=== PATIENT | male | born 1945 | race Caucasian/White ===

== ENCOUNTER → 2023-01-21 11:11 | Outpatient (BNVA) | payer MEDICARE, SELFPAY | PROVIDERS: PCP Family Medicine; Visit Provider Internal Medicine Hematology & Oncology | DX: D69.6 Thrombocytopenia, unspecified (principal) | CPT/HCPCS: 99204 ==

== ENCOUNTER → 2023-01-26 09:43 | Outpatient (BNVA) | payer MEDICARE, SELFPAY | PROVIDERS: PCP Family Medicine; Visit Provider Internal Medicine Hematology & Oncology | DX: D69.6 Thrombocytopenia, unspecified (principal) | CPT/HCPCS: 85025 ==

== ENCOUNTER 2023-02-05 10:06 | Oncology outpatient (recurring) (ONCR) | payer MEDICARE, SELFPAY ==
[2023-01-21 12:06] LABS: Basophils # 0.3 10^3/uL (0.0-0.1); Basophils % 1.6 %; Eosinophils # 0.2 10^3/uL (0.0-0.8); Hematocrit 29.1 % (42.0-52.0); Hemoglobin 8.8 g/dL (11.7-16.6); Lymphocytes # 2.3 10^3/uL (0.8-4.8); Lymphocytes % 13.1 %; Mean Corpuscular HGB Conc 30.2 g/dL (30.0-36.0); Mean Corpuscular Hemoglobin 30.4 pg (28.0-34.0); Mean Corpuscular Volume 100.7 fl (80-94); Monocytes % 5.5 %; Neutrophils # 10.61 10^3/uL (1.8-7.7); Neutrophils % 61.4 %; Nucleated Red Blood Cells # 0.9 /100WBC; Red Blood Count 2.89 10^6/uL (4.1-5.3); Red Cell Distribution Width 20.4 % (12.1-15.1); White Blood Count 17.3 10^3/uL (4.0-10.0)
[2023-01-21 12:29] LABS: Platelet Count 12 10^3/cmm (130-400); Slide Review Slide Review Perform
[2023-01-21 14:56] LABS: Reticulocyte % 3.9 % (0.5-2.0)
[2023-01-21 15:48] LABS: Ferritin 89 ng/mL (30-400); Folate Level 10.5 ng/mL (4.5-32.2); Iron 74 ug/dL (59-158); Percent Saturation 30.4 % (20-50); Total Iron Binding Capacity 243 mcg/dl; Unsaturated Iron Binding 169 ug/dL (112-347); Vitamin B12 616 pg/mL (232-1245)
[2023-01-22] MEDS: diphenhydrAMINE 25 mg Capsule PO (09:13)
[2023-01-22] MEDS: acetaminophen 325 mg Tablet 650 MG PO (09:13)
[2023-01-22 09:25] VITALS: BP 122/59; PULSE 88; RESP 18; TEMP 36.6; O2SAT 99
[2023-01-22 09:51] VITALS: BP 132/79; PULSE 92; RESP 18; TEMP 36.1; O2SAT 99
[2023-01-22 12:42] LABS: Leukemia Profile (BBPL) See Report; Lymphoma Profile (BBPL) See Report
--- NOTE | 2023-01-22 14:37 | US_ITS ---
WS: [id number] Complete ABDOMINAL ULTRASOUND HISTORY: THROMBOCYTOPENIA COMPARISON: None available. Liver: 16.6 cm in length. Normal size liver and echogenicity. No bile duct dilatation or mass. Portal Vein: Normal hepatopetal flow with monophasic waveform. Gallbladder: Normally distended gallbladder with no stones or wall thickening. CBD: 0.3 cm Pancreas: Partially obscured by bowel gas. Right kidney: 10.3 cm x 4.8 x 5.2 cm. Cortex:1.0 cm. Normal size and echogenicity. No hydronephrosis or mass. Left kidney: 11.2 cm x 5.1 cm x 4.9 cm. Cortex: 0.9 cm. No mass, cortical thickening or hydronephrosis. Small cortical cyst mid kidney measures 8 x 9 x 7 mm . Spleen: Mildly enlarged spleen at 14.7 cm in length. Normal concavity at the splenic hilum. No mass. Aorta and IVC: Mild atherosclerosis aorta with no aneurysm. US/US abdomen complete* [id number] Impression: 1. Normal gallbladder. 2. No renal obstruction. 3. Mild splenomegaly. Spleen has slightly enlarged since the prior CT of 08/01.
[2023-02-02 09:06] LABS: Hematocrit 29.6 % (42.0-52.0); Hemoglobin 9.2 g/dL (11.7-16.6); Mean Corpuscular HGB Conc 31.1 g/dL (30.0-36.0); Mean Corpuscular Hemoglobin 31.3 pg (28.0-34.0); Mean Corpuscular Volume 100.7 fl (80-94); Red Blood Count 2.94 10^6/uL (4.1-5.3); White Blood Count 18.6 10^3/uL (4.0-10.0)
[2023-02-02 09:32] LABS: Slide Review Slide Review Perform
[2023-02-02 09:34] LABS: Platelet Count 12 10^3/cmm (130-400)
[2023-02-02 09:38] LABS: Absolute Segmented Neutrophil 11.3 10/cmm (1.6-7.1); Band Neutrophils Absolute 2.2 10^3/cmm (0.0-1.2); Corrected White Blood Count 17.7 10^3/cmm (4.8-10.8); Eosinophils 0 %; Lymphocytes 19 %; Lymphocytes Absolute 3.5 10^3/cmm (1.2-3.4); Monocytes Absolute 0.2 10^3/cmm (0.1-0.6); Segmented Neutrophils 61 %; Total Cells Counted 100 (0-100)
[2023-02-02 09:39] LABS: Absolute Neutrophil 13.6 10^3/cmm (1.4-6.5); Anisocytosis 1+; Macrocytosis Trace; Platelet Estimate Decreased (Normal); Poikilocytosis Trace; Smudge Cells Trace
[2023-02-02 15:05] VITALS: BP 107/69; PULSE 94; RESP 16; TEMP 36.6; O2SAT 99
[2023-02-02] MEDS: sodium chloride 0.9% 250 mL Bag IV (15:21)
[2023-02-02] MEDS: acetaminophen 325 mg Tablet 650 MG PO (15:22)
[2023-02-02] MEDS: diphenhydrAMINE 25 mg Capsule PO (15:22)
[2023-02-02 15:30] VITALS: BP 111/61; PULSE 88; RESP 16; TEMP 36.9; O2SAT 99
[2023-02-05 10:56] LABS: Basophils # 0.3 10^3/uL (0.0-0.1); Basophils % 1.7 %; Eosinophils # 0.1 10^3/uL (0.0-0.8); Eosinophils % 0.7 %; Hematocrit 27.1 % (42.0-52.0); Hemoglobin 8.5 g/dL (11.7-16.6); Lymphocytes # 2.5 10^3/uL (0.8-4.8); Lymphocytes % 13.8 %; Mean Corpuscular HGB Conc 31.4 g/dL (30.0-36.0); Mean Corpuscular Hemoglobin 31.3 pg (28.0-34.0); Mean Corpuscular Volume 99.6 fl (80-94); Monocytes # 0.8 10^3/uL (0.2-0.9); Monocytes % 4.4 %; Neutrophils # 11.64 10^3/uL (1.8-7.7); Neutrophils % 64.4 %; Nucleated Red Blood Cells # 0.6 /100WBC; Nucleated Red Blood Cells % 3.4 %; Red Blood Count 2.72 10^6/uL (4.1-5.3); Red Cell Distribution Width 20.1 % (12.1-15.1); White Blood Count 18.1 10^3/uL (4.0-10.0)
[2023-02-05 11:10] LABS: Platelet Count 24 10^3/cmm (130-400)
[2023-02-05 11:30] LABS: LAB Peripheral Smear Sent for Review
[2023-02-05 12:00] VITALS: BP 124/60; PULSE 81; RESP 18; TEMP 36.4; O2SAT 92
[2023-02-05 12:05] VITALS: BP 124/87; PULSE 81; RESP 18; TEMP 36.4; O2SAT 92
[2023-02-05 16:38] VITALS: BP 124/60; PULSE 81; RESP 18; TEMP 36.6; O2SAT 98
== END 2023-02-08 23:59 | disposition home or self-care (01) ==
PROVIDERS: Nurse Practitioner Family; PCP Family Medicine; Visit Provider Internal Medicine Hematology & Oncology
DX: D69.6 Thrombocytopenia, unspecified (principal); D64.9 Anemia, unspecified
CPT/HCPCS: 36415; 36430; 76700; 82607; 82728; 82746; 83540; 83550; 85007; 85025; 85045; 86850; 86900; 88184; 88185; 99204; 99214; J7050; P9035; P9037

== ENCOUNTER 2023-02-09 10:42 | Day surgery (SDC) | payer MEDICARE, SELFPAY ==
[2023-02-06 12:28] VITALS: BMI 27.3
[2023-02-09 11:02] VITALS: BP 137/58; PULSE 77; RESP 18; TEMP 36.6; O2SAT 97
--- NOTE | 2023-02-09 11:12 | ANES.PREANE2 ---
Pre-Anesthetic Assessment Height/Weight: Height 1.7 m Weight 79.379 kg Temp Pulse Resp BP Pulse Ox O2 Del Method 97.8 F 77 18 137/58 97 Room Air 02/09/23 11:02 02/09/23 11:02 02/09/23 11:02 02/09/23 11:02 02/09/23 11:02 02/09/23 11:02 Operation Date: 02/09/23 12:30 Proposed Procedures p Bone Marrow Biospy With Aspiration(Not Applicable) - Lindsey Callejas MD Familial anesthetic complications: None Was Beta Oracio taken within 24 hours: N/A Was Clonidine taken within 24 hours: N/A Last intake: Intake Last Liquid Date 02/08/23 Last Liquid Time 23:00 Last Solid Date 02/08/23 Last Solid Time 21:00 Social Tobacco and No alcohol Exam alert, oriented x 3, clear to auscultation bilaterally and regular rate & rhythm coarse breath sounds Airway Mallampati: Class II Dentition: full Pulmonary Chronic Obstructive Pulmonary Disease CV/HEM Hypertension and Peripheral Vascular Disease plts 16k - repeat cbc bypass 2019 GI Gastroesophageal Reflux Disease Metabolic Diabetes Mellitus Neuropsych R CEA Anesthetic Plan ASA status: 4 Anesthesia: MAC Medications/Allergies Home Medications Medication Instructions Recorded Confirmed Last Taken Type ascorbic acid (vitamin C) 500 mg 500 mg PO DAILY 05/08/20 02/06/23 1 Day Ago History capsule ~02/05/23 aspirin 325 mg tablet 325 mg PO DAILY 05/08/20 02/06/23 01/23/23 History cyanocobalamin (vitamin B-12) 1,000 mcg PO DAILY 05/08/20 02/06/23 02/05/23 History 1,000 mcg capsule diclofenac sodium 1 % topical gel 4 gm topical QID 05/08/20 02/06/23 3 Months Ago History (Voltaren) ~11/08/22 finasteride 5 mg tablet (Proscar) 5 mg PO DAILY 05/08/20 02/06/23 02/06/23 History furosemide 40 mg tablet 40 mg PO DAILY 05/08/20 02/06/23 02/06/23 History glipizide 5 mg tablet 5 mg PO TID PRN Hyperglycemia 05/08/20 02/06/23 02/06/23 History magnesium 200 mg tablet 200 mg PO DAILY 05/08/20 02/06/23 02/06/23 History metformin 850 mg tablet 850 mg PO BID 05/08/20 02/06/23 02/06/23 History potassium gluconate 595 mg (99 mg) mg PO DAILY 05/08/20 02/02/23 02/06/23 History tablet,extended release lisinopril 5 mg tablet 10 mg PO DAILY 01/21/23 02/06/23 02/06/23 History cetirizine 10 mg capsule (All Day 10 mg PO DAILY PRN Allergy Symptoms 02/02/23 02/06/23 02/06/23 History Allergy (cetirizine)) cinnamon bark 500 mg capsule 500 mg PO BID 02/02/23 02/06/23 02/06/23 History (Cinnamon) doxazosin 4 mg tablet (Cardura) 4 mg PO DAILY 02/06/23 02/06/23 02/05/23 History omeprazole 10 mg capsule,delayed 10 mg PO DAILY 02/06/23 02/06/23 02/06/23 History release Allergies Allergy/AdvReac Type Severity Reaction Status Date / Time No Known Allergies Allergy Verified 02/06/23 12:31 [facility] Anesthesia Medical History Anemia Leukocytosis Thrombocytopenia Social History Smoking and tobacco status: current every day smoker cigarettes Packs smoked per day: 2.5 Alcohol intake: current Alcohol intake frequency: holidays/special occasions only Desire information about alcohol rehabilitation?: No Data Anesthesia Cardiac Studies: No Data to Display
[2023-02-09] MEDS: sodium chloride 0.9% 1,000 ML 30 ML IV (11:23)
[2023-02-09 11:38] LABS: Basophils # 0.3 10^3/uL (0.0-0.1); Basophils % 1.7 %; Eosinophils # 0.2 10^3/uL (0.0-0.8); Eosinophils % 1.2 %; Hematocrit 27.8 % (42.0-52.0); Hemoglobin 8.7 g/dL (11.7-16.6); Lymphocytes # 2.4 10^3/uL (0.8-4.8); Lymphocytes % 13.1 %; Mean Corpuscular HGB Conc 31.3 g/dL (30.0-36.0); Mean Corpuscular Volume 98.9 fl (80-94); Mean Platelet Volume 12.3 fL (7.4-10.4); Monocytes # 0.9 10^3/uL (0.2-0.9); Monocytes % 4.9 %; Neutrophils # 11.31 10^3/uL (1.8-7.7); Nucleated Red Blood Cells # 0.7 /100WBC; Nucleated Red Blood Cells % 3.6 %; Platelet Count 48 10^3/cmm (130-400); Red Blood Count 2.81 10^6/uL (4.1-5.3); Red Cell Distribution Width 20.2 % (12.1-15.1); White Blood Count 18.3 10^3/uL (4.0-10.0)
[2023-02-09 11:41] LABS: Neutrophils % 61.8 %
--- NOTE | 2023-02-09 12:33 | W.PM.OPSUD ---
Surgery/Procedure H&P Update DATE OF PROCEDURE: February 09, 2023 DATE H&P PERFORMED: 01/21/23 CHANGES TO PREVIOUS DOCUMENTATION: Patient seen and examined, no new complaints or obvious changes since his last visit to the clinic PRIMARY INDICATION FOR PROCEDURE: Thrombocytopenia/anemia/leukocytosis with peripheral blast l PLANNED PROCEDURE: Operation Date: 02/09/23 12:30 Proposed Procedures p Bone Marrow Biospy With Aspiration(Not Applicable) - Lindsey Callejas MD
--- NOTE | 2023-02-09 13:14 | PM.BMB ---
Bone Marrow Biopsy Bone Marrow Biopsy: I was consulted by [] office regarding bone marrow biopsy on [facility]. Briefly, the patient is a [78] year old [m] with [Thrombocytopenia, anemia, leukocytosis]. In the Outpatient Services Department, with nursing staff and laboratory technologists in attendance, the procedure was discussed with the patient. Appropriate consent form had been signed. Appropriate alternatives, benefits and risks of procedure were discussed with the patient and he was pre-operatively assessed with a history and physical by myself and cleared for the biopsy procedure. The patient did request IV sedation and that was provided by the Anesthesia Department. Under aseptic condition right posterior iliac area was cleaned and prepped, local anesthesia was given, with multiple attempt, only 5 cc of bone marrow aspirate, without significant spicules was obtained, eventually core biopsy was obtained, hemostasis was obtained. Specimen was sent for routine histopathology, flow cytometry and FISH for MDS, heme next generation and leukemia panel. Postprocedure nursing instructions were given Thank you for allowing me to participate in this patient's care and diagnosis. Coding Level of Care Code Acute Code for Thony Mederos
[2023-02-09 13:16] VITALS: BP 108/61; PULSE 83; RESP 20; TEMP 36.2; O2SAT 97
[2023-02-09 13:21] VITALS: BP 106/61; PULSE 74; RESP 20; O2SAT 98
--- NOTE | 2023-02-09 13:23 | PC.NURSE ---
1316 dressing to right hip clean dry and intact 1318 dressing to right hip clean dry and intact 1321 dressing to right hip remains clean dry and intact. patient lying supine to maintain pressure on site.
--- NOTE | 2023-02-09 13:24 | ANE.PACU2 ---
Inpatient post-anesthesia follow up: Airway intact: Yes Vital signs: Temperature 97.1 F Pulse Rate 74 Respiratory Rate 20 Blood Pressure 106/61 Pulse Oximetry 98 Oxygen Delivery Me thod Nasal Cannula Oxygen Flow Rate 4 Fraction of Inspir ed Oxygen Hydration adequate: Yes Nausea and vomiting: No Pain level: 1 Mental status: Baseline
[2023-02-09 13:31] VITALS: BP 125/63; PULSE 84; RESP 20; O2SAT 97
--- NOTE | 2023-02-09 13:34 | PC.NURSE ---
8308 dressing to right hip clean dry and intact
[2023-02-19 10:46] LABS: Chromosome Analysis BBPL See Report
== END 2023-02-09 13:54 | disposition home or self-care (01) ==
PROVIDERS: PCP Family Medicine; Visit Provider Internal Medicine Hematology & Oncology
PROC: 07DT3ZX Extraction of Bone Marrow, Percutaneous Approach, Diagnostic (ICD-10-PCS; CPT 38222; principal; 2023-02-09 12:30)
DX: D69.6 Thrombocytopenia, unspecified (principal); D64.9 Anemia, unspecified; D72.829 Elevated white blood cell count, unspecified; E11.40 Type 2 diabetes mellitus with diabetic neuropathy, unspecified; I10 Essential (primary) hypertension; J44.9 Chronic obstructive pulmonary disease, unspecified; I73.9 Peripheral vascular disease, unspecified; K21.9 Gastro-esophageal reflux disease without esophagitis; F17.210 Nicotine dependence, cigarettes, uncomplicated; Z79.84 Long term (current) use of oral hypoglycemic drugs; Z79.82 Long term (current) use of aspirin; Z79.899 Other long term (current) drug therapy; Z95.1 Presence of aortocoronary bypass graft
CPT/HCPCS: 36415; 38222; 85025; 88237; 88264; 88291; 88305; 88311; J2704; J7030

== ENCOUNTER → 2023-02-13 12:21 | Day surgery (SDC) | payer MEDICARE, SELFPAY ==
[2023-02-13] MEDS: acetaminophen 325 mg Tablet 650 MG PO (12:47)
[2023-02-13] MEDS: diphenhydrAMINE 25 mg Capsule PO (12:47)
[2023-02-13 12:49] VITALS: BP 134/70; PULSE 84; RESP 18; TEMP 36.3; O2SAT 96
[2023-02-13 13:02] LABS: Platelet Count 22 10^3/cmm (130-400)
--- NOTE | 2023-02-13 13:12 | PC.NURSE ---
Platelet count 22. Dr. Callejas notified. Platelet transfusion deferred until Thursday per Dr. Callejas.
== END ==
PROVIDERS: PCP Family Medicine; Visit Provider Internal Medicine Hematology & Oncology
DX: D69.6 Thrombocytopenia, unspecified (principal); Z79.899 Other long term (current) drug therapy
CPT/HCPCS: 36415; 85049

== ENCOUNTER 2023-03-05 09:00 | Oncology outpatient (recurring) (ONCR) | payer MEDICARE, SELFPAY ==
[2023-02-09 08:26] LABS: Hematocrit 29.7 % (42.0-52.0); Hemoglobin 9.2 g/dL (11.7-16.6); Mean Corpuscular Hemoglobin 30.7 pg (28.0-34.0); Red Cell Distribution Width 20.2 % (12.1-15.1); White Blood Count 18.9 10^3/uL (4.0-10.0)
[2023-02-09 09:16] LABS: Slide Review Slide Review Perform
[2023-02-09 09:17] LABS: Platelet Count 16 10^3/cmm (130-400)
[2023-02-09 09:18] LABS: Absolute Eosinophils 0.1 10^3/cmm (0.0-0.7); Absolute Segmented Neutrophil 10.4 10/cmm (1.6-7.1); Band Neutrophils Absolute 2.5 10^3/cmm (0.0-1.2); Eosinophils 1 %; Lymphocytes 17 %; Lymphocytes Absolute 3.8 10^3/cmm (1.2-3.4); Segmented Neutrophils 55 %; Total Cells Counted 100 (0-100)
[2023-02-09 09:19] LABS: Absolute Neutrophil 12.9 10^3/cmm (1.4-6.5); Anisocytosis 1+; Blastocytes 3 % (0-0); Corrected White Blood Count 18.2 10^3/cmm (4.8-10.8); Platelet Estimate Decreased (Normal); Poikilocytosis 1+
[2023-02-09] MEDS: acetaminophen 325 mg Tablet 650 MG PO (09:39)
[2023-02-09] MEDS: diphenhydrAMINE 25 mg Capsule PO (09:41)
[2023-02-09] MEDS: sodium chloride 0.9% 250 mL Bag IV (09:43)
[2023-02-09 09:51] VITALS: BP 120/60; PULSE 78; RESP 16; TEMP 36.8; O2SAT 96
[2023-02-09 10:09] VITALS: BP 131/59; PULSE 84; RESP 16; TEMP 36.8; O2SAT 99
[2023-02-09 11:00] VITALS: BP 112/68; PULSE 68; RESP 16; TEMP 36.8; O2SAT 98
[2023-02-09 12:24] VITALS: BP 134/64; PULSE 74; RESP 18; TEMP 36.7; O2SAT 97
[2023-02-09 13:24] VITALS: BP 120/67; PULSE 73; TEMP 36.4; O2SAT 92
[2023-02-11 10:25] LABS: Leukemia Profile (BBPL) See Report; Lymphoma Profile (BBPL) See Report
[2023-02-16 09:27] LABS: Basophils # 0.2 10^3/uL (0.0-0.1); Basophils % 1.3 %; Eosinophils # 0.2 10^3/uL (0.0-0.8); Eosinophils % 1.1 %; Hematocrit 27.1 % (42.0-52.0); Hemoglobin 8.5 g/dL (11.7-16.6); Lymphocytes # 2.4 10^3/uL (0.8-4.8); Lymphocytes % 14.5 %; Mean Corpuscular HGB Conc 31.4 g/dL (30.0-36.0); Mean Corpuscular Hemoglobin 31.1 pg (28.0-34.0); Mean Corpuscular Volume 99.3 fl (80-94); Monocytes # 0.7 10^3/uL (0.2-0.9); Monocytes % 3.9 %; Neutrophils # 10.14 10^3/uL (1.8-7.7); Neutrophils % 60.8 %; Nucleated Red Blood Cells # 0.5 /100WBC; Nucleated Red Blood Cells % 2.7 %; Red Blood Count 2.73 10^6/uL (4.1-5.3); Red Cell Distribution Width 20.3 % (12.1-15.1); White Blood Count 16.7 10^3/uL (4.0-10.0)
[2023-02-16 09:32] LABS: Platelet Count 13 10^3/cmm (130-400)
[2023-02-16] MEDS: acetaminophen 325 mg Tablet 650 MG PO (10:07)
[2023-02-16] MEDS: diphenhydrAMINE 25 mg Capsule PO (10:07)
[2023-02-16] MEDS: sodium chloride 0.9% 250 ML IV (10:08)
[2023-02-16 10:25] VITALS: BP 118/66; PULSE 73; RESP 16; TEMP 36.6
[2023-02-16 10:40] VITALS: BP 123/67; PULSE 77; RESP 16; TEMP 36.8; O2SAT 98
[2023-02-16 10:45] VITALS: BP 122/66; PULSE 76; RESP 16; TEMP 36.8; O2SAT 97
[2023-02-19] MEDS: diphenhydrAMINE 25 mg Capsule PO (08:59)
[2023-02-19] MEDS: acetaminophen 325 mg Tablet 650 MG PO (08:59)
[2023-02-19 09:35] LABS: Hematocrit 28.8 % (42.0-52.0); Hemoglobin 9.1 g/dL (11.7-16.6); Mean Corpuscular HGB Conc 31.6 g/dL (30.0-36.0); Mean Corpuscular Hemoglobin 31.5 pg (28.0-34.0); Mean Corpuscular Volume 99.7 fl (80-94); Red Blood Count 2.89 10^6/uL (4.1-5.3); White Blood Count 17.6 10^3/uL (4.0-10.0)
[2023-02-19 10:32] LABS: Slide Review Slide Review Perform
[2023-02-19 10:33] LABS: Absolute Neutrophil 13.2 10^3/cmm (1.4-6.5); Absolute Segmented Neutrophil 12.3 10/cmm (1.6-7.1); Band Neutrophils Absolute 0.9 10^3/cmm (0.0-1.2); Corrected White Blood Count 16.3 10^3/cmm (4.8-10.8); Eosinophils 0 %; Lymphocytes 14 %; Lymphocytes Absolute 2.5 10^3/cmm (1.2-3.4); Monocytes Absolute 0.2 10^3/cmm (0.1-0.6); Platelet Estimate Decreased (Normal); Segmented Neutrophils 70 %; Total Cells Counted 100 (0-100)
[2023-02-19 10:34] VITALS: BP 138/66; PULSE 77; RESP 18; TEMP 36.1; O2SAT 96
[2023-02-19 10:34] LABS: Macrocytosis 1+; Microcytosis 1+; Platelet Count 16 10^3/cmm (130-400); Polychromasia 2+
[2023-02-19 10:45] VITALS: BP 140/67; PULSE 18; PULSE 77; RESP 18; RESP 77; TEMP 36.2; O2SAT 97
[2023-02-23 09:00] VITALS: BP 134/69; PULSE 90; RESP 18; TEMP 37; O2SAT 97
[2023-02-23 09:44] LABS: Basophils # 0.4 10^3/uL (0.0-0.1); Basophils % 1.9 %; Eosinophils # 0.3 10^3/uL (0.0-0.8); Eosinophils % 1.4 %; Hematocrit 27.4 % (42.0-52.0); Hemoglobin 8.7 g/dL (11.7-16.6); Lymphocytes # 2.6 10^3/uL (0.8-4.8); Lymphocytes % 13.4 %; Mean Corpuscular HGB Conc 31.8 g/dL (30.0-36.0); Mean Corpuscular Hemoglobin 31.6 pg (28.0-34.0); Mean Corpuscular Volume 99.6 fl (80-94); Neutrophils # 11.91 10^3/uL (1.8-7.7); Neutrophils % 62.5 %; Nucleated Red Blood Cells # 0.8 /100WBC; Nucleated Red Blood Cells % 4.3 %; Red Blood Count 2.75 10^6/uL (4.1-5.3); Red Cell Distribution Width 19.8 % (12.1-15.1); White Blood Count 19.1 10^3/uL (4.0-10.0)
[2023-02-23 10:18] LABS: Platelet Count 17 10^3/cmm (130-400)
[2023-02-23 10:19] LABS: Slide Review Slide Review Perform
[2023-02-23] MEDS: acetaminophen 325 mg Tablet 650 MG PO (11:41)
[2023-02-23] MEDS: diphenhydrAMINE 25 mg Capsule PO (11:41)
[2023-02-23] MEDS: sodium chloride 0.9% (100 ml) 100 ML 75 ML (11:45)
[2023-02-23 11:48] VITALS: BP 134/64; PULSE 74; RESP 18; TEMP 36.7; O2SAT 97
[2023-02-23 12:00] VITALS: BP 145/64; PULSE 72; RESP 18; TEMP 36.5; O2SAT 96
[2023-02-26 10:14] LABS: Basophils # 0.4 10^3/uL (0.0-0.1); Basophils % 2.2 %; Eosinophils # 0.3 10^3/uL (0.0-0.8); Eosinophils % 1.7 %; Hematocrit 28.4 % (42.0-52.0); Hemoglobin 8.8 g/dL (11.7-16.6); Lymphocytes # 2.5 10^3/uL (0.8-4.8); Lymphocytes % 14.2 %; Mean Corpuscular Hemoglobin 31.3 pg (28.0-34.0); Mean Corpuscular Volume 101.1 fl (80-94); Monocytes # 0.9 10^3/uL (0.2-0.9); Monocytes % 4.8 %; Neutrophils # 10.73 10^3/uL (1.8-7.7); Nucleated Red Blood Cells # 0.7 /100WBC; Red Blood Count 2.81 10^6/uL (4.1-5.3); Red Cell Distribution Width 19.6 % (12.1-15.1); White Blood Count 17.9 10^3/uL (4.0-10.0)
[2023-02-26 10:15] VITALS: BP 154/68; PULSE 74; RESP 18; TEMP 36.1; O2SAT 93
[2023-02-26 10:30] LABS: Platelet Count 22 10^3/cmm (130-400)
[2023-02-26 10:31] LABS: Slide Review Slide Review Perform
--- NOTE | 2023-02-26 15:28 | PC.NURSE ---
After reviewing todays cbc results with Dr. garcia, the patient was given an option to wait for platelets to arrive today, come back tomorrow to recieve them or wait until his next lab draw on Thursday. The patient chose to wait until thursday. He was then instructed to go to ER for any bleeding problems in the mean time. Patient and his daughter verbalized understanding
[2023-03-02 09:38] VITALS: BP 97/59; PULSE 81; RESP 18; TEMP 36.6; O2SAT 98
[2023-03-02 09:45] LABS: Hematocrit 29.6 % (42.0-52.0); Hemoglobin 9.3 g/dL (11.7-16.6); Mean Corpuscular HGB Conc 31.4 g/dL (30.0-36.0); Mean Corpuscular Hemoglobin 31.3 pg (28.0-34.0); Mean Corpuscular Volume 99.7 fl (80-94); Red Blood Count 2.97 10^6/uL (4.1-5.3); Red Cell Distribution Width 19.7 % (12.1-15.1); White Blood Count 18.6 10^3/uL (4.0-10.0)
[2023-03-02 10:12] LABS: Slide Review Slide Review Perform
[2023-03-02 10:13] LABS: Platelet Count 11 10^3/cmm (130-400)
[2023-03-02 10:17] LABS: Absolute Segmented Neutrophil 12.3 10/cmm (1.6-7.1); Anisocytosis 1+; Band Neutrophils Absolute 2.4 10^3/cmm (0.0-1.2); Eosinophils 0 %; Lymphocytes 11 %; Macrocytosis Trace; Poikilocytosis Trace; Segmented Neutrophils 66 %; Total Cells Counted 100 (0-100)
[2023-03-02 10:18] LABS: Absolute Neutrophil 14.7 10^3/cmm (1.4-6.5); Platelet Estimate Decreased (Normal)
[2023-03-02] MEDS: diphenhydrAMINE 25 mg Capsule PO (12:21)
[2023-03-02] MEDS: acetaminophen 325 mg Tablet 650 MG PO (12:21)
[2023-03-02] MEDS: sodium chloride 0.9% 250 mL Bag IV (12:23)
[2023-03-02 12:54] VITALS: PULSE 78; RESP 16; TEMP 36.6
[2023-03-02 13:25] VITALS: BP 125/64; PULSE 67; RESP 18; TEMP 35; TEMP 36.6; O2SAT 95
[2023-03-05 09:44] LABS: Hematocrit 30.2 % (42.0-52.0); Hemoglobin 9.3 g/dL (11.7-16.6); Mean Corpuscular HGB Conc 30.8 g/dL (30.0-36.0); Mean Corpuscular Hemoglobin 30.7 pg (28.0-34.0); Mean Corpuscular Volume 99.7 fl (80-94); Red Blood Count 3.03 10^6/uL (4.1-5.3); Red Cell Distribution Width 19.4 % (12.1-15.1); White Blood Count 16.7 10^3/uL (4.0-10.0)
[2023-03-05 10:42] LABS: Slide Review Slide Review Perform; Total Cells Counted 10 (0-100)
[2023-03-05 10:43] LABS: Absolute Eosinophils 0.1 10^3/cmm (0.0-0.7); Absolute Neutrophil 12.5 10^3/cmm (1.4-6.5); Absolute Segmented Neutrophil 11.7 10/cmm (1.6-7.1); Band Neutrophils Absolute 0.8 10^3/cmm (0.0-1.2); Corrected White Blood Count 15.9 10^3/cmm (4.8-10.8); Eosinophils 1 %; Lymphocytes 16 %; Monocytes Absolute 0.3 10^3/cmm (0.1-0.6); Platelet Estimate Decreased (Normal); Segmented Neutrophils 70 %
[2023-03-05 10:45] LABS: Macrocytosis 1+; Microcytosis 1+; Polychromasia 1+; Stomatocytes Trace; Tear Drop Cells Trace
[2023-03-05 10:48] LABS: Platelet Count 14 10^3/cmm (130-400)
[2023-03-05] MEDS: acetaminophen 325 mg Tablet 650 MG PO (11:31)
[2023-03-05] MEDS: diphenhydrAMINE 25 mg Capsule PO (11:31)
[2023-03-05 12:20] VITALS: BP 123/72; PULSE 75; RESP 16; TEMP 35.7; O2SAT 99
[2023-03-05 13:55] VITALS: BP 138/66; PULSE 73; RESP 18; RESP 20; TEMP 36.2; O2SAT 99
[2023-03-05 14:00] VITALS: BP 138/66; PULSE 73; RESP 16; TEMP 36.2; O2SAT 99
== END 2023-03-05 23:59 | disposition home or self-care (01) ==
PROVIDERS: Nurse Practitioner Family; PCP Family Medicine; Visit Provider Internal Medicine Hematology & Oncology
DX: D69.6 Thrombocytopenia, unspecified (principal); D64.9 Anemia, unspecified; Z79.899 Other long term (current) drug therapy
CPT/HCPCS: 36415; 36430; 38222; 85007; 85025; 86850; 86900; 88184; 88185; 88237; 88264; 88291; 88305; 88311; 96360; J2704; J7030; J7050; P9037

== ENCOUNTER 2023-03-11 10:00 | Oncology outpatient (recurring) (ONCR) | payer MEDICARE, SELFPAY ==
[2023-03-10 09:47] VITALS: BP 102/59; PULSE 79; RESP 18; TEMP 36.8; O2SAT 94
[2023-03-10 09:52] LABS: Hematocrit 28.1 % (42.0-52.0); Hemoglobin 8.9 g/dL (11.7-16.6); Mean Corpuscular HGB Conc 31.7 g/dL (30.0-36.0); Mean Corpuscular Hemoglobin 31.6 pg (28.0-34.0); Mean Corpuscular Volume 99.6 fl (80-94); Red Blood Count 2.82 10^6/uL (4.1-5.3); Red Cell Distribution Width 19.7 % (12.1-15.1); White Blood Count 17.5 10^3/uL (4.0-10.0)
[2023-03-10 10:49] LABS: Platelet Count 17 10^3/cmm (130-400); Slide Review Slide Review Perform
[2023-03-10 10:50] LABS: Absolute Eosinophils 0.1 10^3/cmm (0.0-0.7); Absolute Segmented Neutrophil 10.3 10/cmm (1.6-7.1); Band Neutrophils Absolute 2.6 10^3/cmm (0.0-1.2); Eosinophils 1 %; Lymphocytes 11 %; Lymphocytes Absolute 2.8 10^3/cmm (1.2-3.4); Microcytosis 1+; Monocytes Absolute 0.5 10^3/cmm (0.1-0.6); Platelet Estimate Decreased (Normal); Polychromasia Trace; Segmented Neutrophils 59 %; Total Cells Counted 100 (0-100)
--- NOTE | 2023-03-10 12:19 | PC.NURSE ---
Patient was informed of the order for irratiated platelets and lab called unable to get platelets until 2:30 or 3:00pm today with patient requesting to return tomorrow for them am prior to another appointment at noon. blood bank aware and will have them ready in [email or web address]
[2023-03-11 10:17] VITALS: BP 99/63; PULSE 94; RESP 18; TEMP 36.3; O2SAT 93
[2023-03-11] MEDS: diphenhydrAMINE 25 mg Capsule PO (10:22)
[2023-03-11] MEDS: acetaminophen 325 mg Tablet 650 MG PO (10:22)
[2023-03-11 10:39] VITALS: BP 142/68; PULSE 94; RESP 18; TEMP 36.3; O2SAT 94
[2023-03-11 10:55] VITALS: BP 108/62; PULSE 76; RESP 18; TEMP 36.6; O2SAT 93
[2023-03-11 11:18] VITALS: BP 111/64; PULSE 75; RESP 16; TEMP 36.8; O2SAT 94
[2023-03-11 11:25] VITALS: BP 111/64; PULSE 75; RESP 16; TEMP 36.8; O2SAT 94
== END 2023-03-11 23:59 | disposition home or self-care (01) ==
PROVIDERS: Nurse Practitioner Family; PCP Family Medicine; Visit Provider Internal Medicine Hematology & Oncology
DX: D69.6 Thrombocytopenia, unspecified (principal)
CPT/HCPCS: 36430; 85007; 85025; 86900; 93005; 99204; P9037

== ENCOUNTER 2023-03-27 14:02 | Outpatient (CLI) | payer MEDICARE, SELFPAY ==
--- NOTE | 2023-03-27 14:30 | USCV_ITS ---
Mathew Rivera Age: 78 Gender: M : 1945 Exam Date: 03/27/2023 14:47 Ordering Phys: Yunior Kellogg M.D ([email or web address]) Technologist: CT Exam Location: [facility] Indication: sob, hx of cabg BP: 120 / 67 HR: 70 Rhythm: Sinus Technical Quality: Adequate MEASUREMENTS (Male / Female) Normal Values 2D ECHO LV Diastolic Diameter PLAX 4.3 cm 4.2 - 5.9 / 3.9 - 5.3 cm LV Systolic Diameter PLAX 2.6 cm IVS Diastolic Thickness 0.8 cm 0.6 - 1.0 / 0.6 - 0.9 cm IVS Systolic Thickness 1.1 cm LVPW Diastolic Thickness 1.0 cm 0.6 - 1.0 / 0.6 - 0.9 cm LVPW Systolic Thickness 2.4 cm LVOT Diameter 2.1 cm LV Ejection Fraction 2D Teich 70.3 % LV Ejection Fraction MOD 2C 64.8 % LV Ejection Fraction 2C AL 64.8 % LA Diameter 4.8 cm Aorta at Sinotubular Diameter 3.1 cm IVC Diameter 1.7 cm M-MODE Aortic Annulus Diameter 4.0 cm LA Ao Ratio MM 1.2 MV E Point Septal Separation 1.1 cm DOPPLER AV Peak Velocity 139.0 cm/s LVOT Peak Velocity 125.0 cm/s AV Area Cont Eq vti 3.7 cm squared AV Area Cont Eq pk 3.1 cm squared MV Peak Velocity 144.0 cm/s MV Area PHT 3.7 cm squared Mitral E to A Ratio 0.9 MV E' Velocity 57.0 cm/s Mitral E to MV E' Ratio 18.8 Mitral E to LV E' Lateral Ratio 21.0 Mitral E to LV E' Septal Ratio 17.4 TR Peak Velocity 136.2 cm/s TR Peak Gradient 7.4 mmHg TR Mean Velocity 104.6 cm/s TR Mean Gradient 4.8 mmHg TR Velocity Time Integral 25.3 cm TV Peak E Velocity 69.0 cm/s Right Atrial Pressure 3.0 mmHg Pulmonary Artery Systolic Pressu 10.4 mmHg FINDINGS Left Ventricle Normal left ventricular size, systolic function with estimated ejection fraction about 60 to 65% With no regional wall motion abnormalities. Mild LVH seen.. Normal diastolic filling pattern. Right Ventricle The right ventricle is normal in size and function. Right Atrium The right atrium is normal in size. Left Atrium The left atrium is normal in size. Mitral Valve Structurally normal mitral valve without significant stenosis or prolapse. There is mild mitral regurgitation. Aortic Valve Structurally normal aortic valve without significant sclerosis or stenosis. There is no aortic regurgitation. Tricuspid Valve Structurally normal tricuspid valve without significant stenosis. There is mild regurgitation. Pulmonary artery systolic pressure is normal. Pulmonic Valve Structurally normal pulmonic valve without significant stenosis. There is no pulmonic regurgitation. Pericardium Normal pericardium without effusion. Aorta Normal ascending aorta dimension. IVC The inferior vena cava appears normal. CONCLUSIONS Normal LV function with mild MR Neri Morales MD (Electronically Signed) Final Date: 28 March 2023 11:26 S
--- NOTE | 2023-03-27 15:45 | USR_ITS ---
PROCEDURE INFORMATION: Exam: US Duplex Bilateral Lower Extremity Arteries Exam date and time: 03/27/2023 2:17 PM Age: 78 years old Clinical indication: Other: Left; Additional info: Bilat leg pain, pvd TECHNIQUE: Imaging protocol: Real-time ultrasound scan of the arteries of the bilateral lower extremities with 2-D reno scale, color Doppler flow and spectral waveform analysis. Images documented and saved. COMPARISON: No relevant prior studies available. FINDINGS: Right common femoral artery: No occlusion or significant stenosis. Normal waveform. Right superficial femoral artery: Occluded superficial femoral artery from the proximal through the distal aspect. Right popliteal artery: No occlusion or significant stenosis. Tardus parvus waveform. Right calf/foot arteries: No occlusion or significant stenosis in the visualized arteries. Tardus parvus waveforms. Dorsalis pedis artery is patent. Left common femoral artery: No occlusion or significant stenosis. Normal waveform. Left superficial femoral artery: Diminutive waveform at the mid aspect of the superficial femoral artery. Monophasic waveform of the distal femoral artery. Left popliteal artery: Monophasic diminutive waveform at the popliteal artery. Left calf/foot arteries: Tardus parvus waveforms. Dorsalis pedis artery is occluded. US/CV arterial duplex [facility] [id number] IMPRESSION: 1. Occluded right superficial femoral artery from the proximal through the distal aspect with reconstitution distal to this location. 2. Findings suggestive of a significant stenosis in the mid left superficial femoral artery. Occluded left dorsalis pedis artery.
== END 2023-03-27 14:03 | disposition home or self-care (01) ==
PROVIDERS: PCP Family Medicine; Visit Provider Internal Medicine
DX: I77.1 Stricture of artery (principal); M79.604 Pain in right leg; M79.605 Pain in left leg; Z95.1 Presence of aortocoronary bypass graft
CPT/HCPCS: 93306; 93925

== ENCOUNTER 2023-04-09 09:00 | Oncology outpatient (recurring) (ONCR) | payer MEDICARE, SELFPAY ==
[2023-03-16 09:25] VITALS: BP 112/49; PULSE 84; RESP 18; TEMP 37.1; O2SAT 96
[2023-03-16 09:53] LABS: Hematocrit 28.9 % (42.0-52.0); Hemoglobin 9.1 g/dL (11.7-16.6); Mean Corpuscular HGB Conc 31.5 g/dL (30.0-36.0); Mean Corpuscular Hemoglobin 31.4 pg (28.0-34.0); Mean Corpuscular Volume 99.7 fl (80-94); Red Cell Distribution Width 19.3 % (12.1-15.1); White Blood Count 19.9 10^3/uL (4.0-10.0)
[2023-03-16 10:14] LABS: Alanine Aminotransferase 11 U/L (0-41); Albumin Level 3.8 g/dL (3.5-5.2); Alkaline Phosphatase 99 U/L (40-130); Anion Gap 14.8 (5-19); Aspartate Amino Transferase 18 U/L (0-40); Blood Urea Nitrogen 10 mg/dL (8-23); Calcium 8.1 mg/dL (8.5-10.5); Carbon Dioxide 26 mmol/L (22-29); Chloride 95 mmol/L (98-107); Globulin 2.8 g/dL (1.3-4.6); Glucose 228 mg/dL (65-115); Osmolality Calculated 280 mOsm/kg (285-295); Potassium 3.8 mmol/L (3.5-5.1); Sodium 132 mmol/L (136-145); Total Bilirubin 0.7 mg/dL (0.15-1.2); Total Protein 6.6 g/dL (6.6-8.7)
[2023-03-16 10:19] LABS: Slide Review Slide Review Perform
[2023-03-16 10:23] LABS: Platelet Count 11 10^3/cmm (130-400)
[2023-03-16 10:27] LABS: Absolute Eosinophils 0.1 10^3/cmm (0.0-0.7); Absolute Segmented Neutrophil 11.3 10/cmm (1.6-7.1); Band Neutrophils Absolute 5.6 10^3/cmm (0.0-1.2); Basophils Absolute 0.2 10^3/cmm (0.0-0.2); Eosinophils 1 %; Lymphocytes 6 %; Lymphocytes Absolute 1.2 10^3/cmm (1.2-3.4); Segmented Neutrophils 57 %; Total Cells Counted 100 (0-100)
[2023-03-16 10:28] LABS: Absolute Neutrophil 16.9 10^3/cmm (1.4-6.5); Anisocytosis 1+; Macrocytosis Trace; Platelet Estimate Decreased (Normal); Smudge Cells Trace
[2023-03-17 08:20] VITALS: BP 143/65; PULSE 94; RESP 18; TEMP 36.9; O2SAT 95
[2023-03-17] MEDS: acetaminophen 325 mg Tablet 650 MG PO (08:53)
[2023-03-17] MEDS: diphenhydrAMINE 25 mg Capsule PO (08:54)
[2023-03-17 09:03] VITALS: BP 120/56; PULSE 80; RESP 18; TEMP 36.4; O2SAT 96
[2023-03-17 09:22] VITALS: BP 122/72; PULSE 74; RESP 18; TEMP 36.4; O2SAT 96
[2023-03-17 11:00] VITALS: BP 122/72; PULSE 82; RESP 18; TEMP 36.1; O2SAT 97
[2023-03-19 17:29] LABS: Copper Level 118 mcg/dL (70-175); Zinc Level, Serum or Plasma 63 mcg/dL (60-130)
[2023-03-24 09:41] VITALS: BP 125/67; PULSE 73; RESP 17; TEMP 36.6; O2SAT 98
[2023-03-24 09:52] LABS: Hematocrit 30.9 % (42.0-52.0); Hemoglobin 9.5 g/dL (11.7-16.6); Mean Corpuscular HGB Conc 30.7 g/dL (30.0-36.0); Mean Corpuscular Hemoglobin 30.5 pg (28.0-34.0); Mean Corpuscular Volume 99.4 fl (80-94); Red Blood Count 3.11 10^6/uL (4.1-5.3); Red Cell Distribution Width 19.3 % (12.1-15.1); White Blood Count 20.4 10^3/uL (4.0-10.0)
[2023-03-24 10:54] LABS: Platelet Count 9 10^3/cmm (130-400)
[2023-03-24 10:55] LABS: Slide Review Slide Review Perform
[2023-03-24 10:56] LABS: Absolute Neutrophil 15.5 10^3/cmm (1.4-6.5); Absolute Segmented Neutrophil 14.3 10/cmm (1.6-7.1); Band Neutrophils Absolute 1.2 10^3/cmm (0.0-1.2); Blastocytes 1 % (0-0); Corrected White Blood Count 19.6 10^3/cmm (4.8-10.8); Eosinophils 0 %; Lymphocytes 9 %; Lymphocytes Absolute 2.7 10^3/cmm (1.2-3.4); Monocytes Absolute 0.2 10^3/cmm (0.1-0.6); Platelet Estimate Decreased (Normal); Polychromasia 1+; Segmented Neutrophils 70 %; Total Cells Counted 100 (0-100)
[2023-03-24 10:57] LABS: Basophilic Stippling Trace; Macrocytosis 1+; Microcytosis 1+; Tear Drop Cells Trace
[2023-03-24] MEDS: acetaminophen 325 mg Tablet 650 MG PO (14:21)
[2023-03-24] MEDS: diphenhydrAMINE 25 mg Capsule PO (14:22)
[2023-03-24 14:54] VITALS: BP 99/58; PULSE 90; RESP 18; TEMP 36.6; O2SAT 92
[2023-03-24 14:55] VITALS: BP 99/58; PULSE 90; RESP 18; TEMP 36.4; O2SAT 92
[2023-03-24 15:05] VITALS: BP 102/56; PULSE 84; RESP 18; TEMP 36.6; O2SAT 92
[2023-03-26 09:26] VITALS: BP 147/77; PULSE 75; RESP 16; TEMP 36.3; O2SAT 97
[2023-03-26 09:49] LABS: Hematocrit 30.2 % (42.0-52.0); Hemoglobin 9.3 g/dL (11.7-16.6); Mean Corpuscular HGB Conc 30.8 g/dL (30.0-36.0); Mean Corpuscular Hemoglobin 30.7 pg (28.0-34.0); Mean Corpuscular Volume 99.7 fl (80-94); Red Blood Count 3.03 10^6/uL (4.1-5.3); Red Cell Distribution Width 19.2 % (12.1-15.1); White Blood Count 19.9 10^3/uL (4.0-10.0)
[2023-03-26 11:14] LABS: Slide Review Slide Review Perform
[2023-03-26 11:15] LABS: Platelet Count 23 10^3/cmm (130-400)
[2023-03-26 11:16] LABS: Absolute Eosinophils 0.1 10^3/cmm (0.0-0.7); Absolute Neutrophil 14.3 10^3/cmm (1.4-6.5); Absolute Segmented Neutrophil 12.5 10/cmm (1.6-7.1); Band Neutrophils Absolute 1.8 10^3/cmm (0.0-1.2); Blastocytes 1 % (0-0); Eosinophils 1 %; Hypochromasia 1+; Lymphocytes 4 %; Lymphocytes Absolute 1.4 10^3/cmm (1.2-3.4); Macrocytosis 1+; Microcytosis 1+; Monocytes Absolute 0.2 10^3/cmm (0.1-0.6); Platelet Estimate Decreased (Normal); Polychromasia 1+; Segmented Neutrophils 63 %; Stomatocytes 1+; Total Cells Counted 100 (0-100)
[2023-03-31 08:58] VITALS: BP 114/64; PULSE 95; RESP 18; TEMP 37.2; O2SAT 97
[2023-03-31 09:22] LABS: Basophils # 0.3 10^3/uL (0.0-0.1); Basophils % 1.6 %; Eosinophils # 0.1 10^3/uL (0.0-0.8); Eosinophils % 0.7 %; Hematocrit 31.3 % (42.0-52.0); Hemoglobin 9.7 g/dL (11.7-16.6); Lymphocytes # 2.4 10^3/uL (0.8-4.8); Lymphocytes % 11.8 %; Mean Corpuscular Hemoglobin 30.8 pg (28.0-34.0); Mean Corpuscular Volume 99.4 fl (80-94); Monocytes # 0.9 10^3/uL (0.2-0.9); Monocytes % 4.4 %; Neutrophils # 12.43 10^3/uL (1.8-7.7); Nucleated Red Blood Cells # 0.7 /100WBC; Nucleated Red Blood Cells % 3.7 %; Red Blood Count 3.15 10^6/uL (4.1-5.3); Red Cell Distribution Width 19.2 % (12.1-15.1)
[2023-03-31 10:10] LABS: Platelet Count 9 10^3/cmm (130-400); Slide Review Slide Review Perform
[2023-03-31 13:43] VITALS: BP 101/57; PULSE 96; RESP 18; TEMP 36.4
[2023-03-31] MEDS: diphenhydrAMINE 25 mg Capsule PO (13:46)
[2023-03-31] MEDS: acetaminophen 325 mg Tablet 650 MG PO (13:46)
[2023-03-31 14:05] VITALS: BP 101/57; PULSE 71; RESP 18; TEMP 36.4; O2SAT 98
[2023-03-31 14:08] VITALS: BP 101/57; PULSE 71; RESP 18; TEMP 36.4; O2SAT 98
[2023-03-31 14:25] VITALS: BP 112/64; PULSE 80; RESP 18; TEMP 36.4; O2SAT 92
[2023-04-02 09:09] VITALS: BP 99/62; PULSE 93; RESP 18; TEMP 36.2; O2SAT 98
[2023-04-02 09:24] LABS: Hematocrit 29.9 % (42.0-52.0); Hemoglobin 9.3 g/dL (11.7-16.6); Mean Corpuscular HGB Conc 31.1 g/dL (30.0-36.0); Mean Corpuscular Hemoglobin 30.8 pg (28.0-34.0); Mean Platelet Volume 9.9 fL (7.4-10.4); Red Blood Count 3.02 10^6/uL (4.1-5.3); Red Cell Distribution Width 19.1 % (12.1-15.1); White Blood Count 19.3 10^3/uL (4.0-10.0)
[2023-04-02 10:28] LABS: Slide Review Slide Review Perform
[2023-04-02 10:29] LABS: Absolute Eosinophils 0.7 10^3/cmm (0.0-0.7); Absolute Segmented Neutrophil 12.2 10/cmm (1.6-7.1); Band Neutrophils Absolute 1.4 10^3/cmm (0.0-1.2); Eosinophils 4 %; Lymphocytes 5 %; Lymphocytes Absolute 1.9 10^3/cmm (1.2-3.4); Monocytes Absolute 0.2 10^3/cmm (0.1-0.6); Segmented Neutrophils 63 %; Total Cells Counted 100 (0-100)
[2023-04-02 10:30] LABS: Absolute Neutrophil 13.5 10^3/cmm (1.4-6.5); Corrected White Blood Count 18.4 10^3/cmm (4.8-10.8); Macrocytosis 2+; Microcytosis 1+; Platelet Estimate Decreased (Normal); Polychromasia 1+
[2023-04-02 10:31] LABS: Blastocytes 2 % (0-0); Platelet Count 25 10^3/cmm (130-400)
[2023-04-06 09:38] VITALS: BP 102/60; PULSE 95; RESP 18; TEMP 36.7; O2SAT 98
[2023-04-06 10:02] LABS: Hematocrit 29.7 % (42.0-52.0); Hemoglobin 9.4 g/dL (11.7-16.6); Mean Corpuscular HGB Conc 31.6 g/dL (30.0-36.0); Mean Corpuscular Hemoglobin 30.8 pg (28.0-34.0); Mean Corpuscular Volume 97.4 fl (80-94); Mean Platelet Volume 10.5 fL (7.4-10.4); Red Blood Count 3.05 10^6/uL (4.1-5.3); White Blood Count 18.7 10^3/uL (4.0-10.0)
[2023-04-06 10:53] LABS: Platelet Count 11 10^3/cmm (130-400); Slide Review Slide Review Perform
[2023-04-06 10:57] LABS: Absolute Eosinophils 0.1 10^3/cmm (0.0-0.7); Absolute Segmented Neutrophil 10.1 10/cmm (1.6-7.1); Band Neutrophils Absolute 2.1 10^3/cmm (0.0-1.2); Basophils Absolute 0.2 10^3/cmm (0.0-0.2); Corrected White Blood Count 17.8 10^3/cmm (4.8-10.8); Eosinophils 1 %; Lymphocytes 22 %; Lymphocytes Absolute 4.5 10^3/cmm (1.2-3.4); Monocytes Absolute 0.4 10^3/cmm (0.1-0.6); Poikilocytosis Trace; Segmented Neutrophils 54 %; Total Cells Counted 100 (0-100)
[2023-04-06 10:58] LABS: Absolute Neutrophil 12.2 10^3/cmm (1.4-6.5); Anisocytosis 1+; Macrocytosis 1+; Platelet Estimate Decreased (Normal)
[2023-04-06] MEDS: acetaminophen 325 mg Tablet 650 MG PO (14:09)
[2023-04-06] MEDS: diphenhydrAMINE 25 mg Capsule PO (14:09)
[2023-04-06 14:36] VITALS: PULSE 94; RESP 16; O2SAT 94
[2023-04-06 14:55] VITALS: BP 94/55; PULSE 82; RESP 16; TEMP 36.2; O2SAT 92
[2023-04-06 17:18] VITALS: BP 94/55; PULSE 82; RESP 16; TEMP 36.2; O2SAT 92
[2023-04-09 08:55] VITALS: BP 97/57; PULSE 89; RESP 18; TEMP 36.9; O2SAT 96
[2023-04-09 09:33] LABS: Basophils # 0.3 10^3/uL (0.0-0.1); Basophils % 1.5 %; Eosinophils # 0.1 10^3/uL (0.0-0.8); Eosinophils % 0.8 %; Hematocrit 26.9 % (42.0-52.0); Hemoglobin 8.6 g/dL (11.7-16.6); Lymphocytes # 2.4 10^3/uL (0.8-4.8); Mean Corpuscular Hemoglobin 30.6 pg (28.0-34.0); Mean Corpuscular Volume 95.7 fl (80-94); Monocytes % 5.6 %; Neutrophils # 11.41 10^3/uL (1.8-7.7); Neutrophils % 61.6 %; Nucleated Red Blood Cells # 0.3 /100WBC; Nucleated Red Blood Cells % 1.8 %; Red Blood Count 2.81 10^6/uL (4.1-5.3); Red Cell Distribution Width 18.9 % (12.1-15.1); White Blood Count 18.5 10^3/uL (4.0-10.0)
[2023-04-09 10:12] LABS: Slide Review Slide Review Perform
[2023-04-09 10:13] LABS: Platelet Count 19 10^3/cmm (130-400)
[2023-04-13 18:13] LABS: Copper Level 113 mcg/dL (70-175); Zinc Level, Serum or Plasma 52 mcg/dL (60-130)
== END 2023-04-10 23:59 | disposition home or self-care (01) ==
PROVIDERS: Nurse Practitioner Family; PCP Family Medicine; Visit Provider Internal Medicine Hematology & Oncology
DX: D69.6 Thrombocytopenia, unspecified (principal); D64.9 Anemia, unspecified; D72.829 Elevated white blood cell count, unspecified
CPT/HCPCS: 36415; 36430; 80053; 82525; 84630; 85007; 85025; 86850; 86900; 99214; P9016; P9040

== ENCOUNTER 2023-05-08 09:00 | Oncology outpatient (recurring) (ONCR) | payer MEDICARE, SELFPAY ==
[2023-04-13 08:58] VITALS: BP 111/67; PULSE 93; RESP 18; TEMP 36.8; O2SAT 97
[2023-04-13 09:14] LABS: Hematocrit 28.3 % (42.0-52.0); Mean Corpuscular HGB Conc 31.8 g/dL (30.0-36.0); Mean Corpuscular Hemoglobin 30.5 pg (28.0-34.0); Mean Corpuscular Volume 95.9 fl (80-94); Red Blood Count 2.95 10^6/uL (4.1-5.3); White Blood Count 19.8 10^3/uL (4.0-10.0)
[2023-04-13 09:36] LABS: Platelet Count 9 10^3/cmm (130-400)
[2023-04-13 09:37] LABS: Slide Review Slide Review Perform
[2023-04-13 09:41] LABS: Absolute Eosinophils 0.1 10^3/cmm (0.0-0.7); Absolute Segmented Neutrophil 11.9 10/cmm (1.6-7.1); Band Neutrophils Absolute 2.6 10^3/cmm (0.0-1.2); Eosinophils 1 %; Lymphocytes 14 %; Monocytes Absolute 0.2 10^3/cmm (0.1-0.6); Segmented Neutrophils 60 %; Total Cells Counted 100 (0-100)
[2023-04-13 09:42] LABS: Anisocytosis 1+
[2023-04-13 09:43] LABS: Absolute Neutrophil 14.5 10^3/cmm (1.4-6.5); Platelet Estimate Decreased (Normal)
[2023-04-13] MEDS: acetaminophen 325 mg Tablet 650 MG PO (13:22)
[2023-04-13] MEDS: diphenhydrAMINE 25 mg Capsule PO (13:23)
[2023-04-13 13:46] VITALS: BP 96/51; PULSE 80; RESP 18; TEMP 36.6; O2SAT 94
[2023-04-13 13:48] VITALS: BP 96/51; PULSE 80; RESP 18; TEMP 36.4; O2SAT 95
[2023-04-13 13:58] VITALS: BP 87/50; PULSE 81; RESP 18; TEMP 36.4; O2SAT 97
[2023-04-13 14:00] VITALS: BP 96/51; PULSE 81; RESP 18; TEMP 36.4; O2SAT 95
[2023-04-13 14:06] VITALS: BP 87/50; PULSE 81; RESP 18; TEMP 36.4; O2SAT 97
[2023-04-16 08:53] VITALS: BP 108/64; PULSE 97; RESP 18; TEMP 36.8; O2SAT 94
[2023-04-16 09:43] LABS: Basophils # 0.4 10^3/uL (0.0-0.1); Basophils % 1.9 %; Eosinophils # 0.2 10^3/uL (0.0-0.8); Eosinophils % 0.7 %; Hematocrit 29.6 % (42.0-52.0); Hemoglobin 9.3 g/dL (11.7-16.6); Lymphocytes # 3.1 10^3/uL (0.8-4.8); Lymphocytes % 13.8 %; Mean Corpuscular HGB Conc 31.4 g/dL (30.0-36.0); Mean Corpuscular Hemoglobin 30.5 pg (28.0-34.0); Monocytes # 1.3 10^3/uL (0.2-0.9); Monocytes % 5.7 %; Neutrophils # 12.87 10^3/uL (1.8-7.7); Nucleated Red Blood Cells # 0.7 /100WBC; Red Blood Count 3.05 10^6/uL (4.1-5.3); Red Cell Distribution Width 19.2 % (12.1-15.1); White Blood Count 22.2 10^3/uL (4.0-10.0)
[2023-04-16 10:17] LABS: Platelet Count 24 10^3/cmm (130-400)
[2023-04-16 10:20] LABS: Slide Review Slide Review Perform
[2023-04-20 09:01] VITALS: BP 105/58; PULSE 86; RESP 18; TEMP 36.4
[2023-04-20 09:48] LABS: Hematocrit 30.4 % (42.0-52.0); Hemoglobin 9.6 g/dL (11.7-16.6); Mean Corpuscular HGB Conc 31.6 g/dL (30.0-36.0); Mean Corpuscular Hemoglobin 30.3 pg (28.0-34.0); Mean Corpuscular Volume 95.9 fl (80-94); Red Blood Count 3.17 10^6/uL (4.1-5.3); Red Cell Distribution Width 19.1 % (12.1-15.1); White Blood Count 23.1 10^3/uL (4.0-10.0)
[2023-04-20 10:09] LABS: Platelet Count 8 10^3/cmm (130-400)
[2023-04-20 10:10] LABS: Absolute Segmented Neutrophil 13.4 10/cmm (1.6-7.1); Band Neutrophils Absolute 5.1 10^3/cmm (0.0-1.2); Lymphocytes 9 %; Monocytes Absolute 0.5 10^3/cmm (0.1-0.6); Segmented Neutrophils 58 %; Slide Review Slide Review Perform; Total Cells Counted 100 (0-100)
[2023-04-20 10:11] LABS: Absolute Neutrophil 18.5 10^3/cmm (1.4-6.5); Blastocytes 1 % (0-0); Eosinophils 0 %; Lymphocytes Absolute 2.1 10^3/cmm (1.2-3.4); Platelet Estimate Decreased (Normal)
[2023-04-20 10:12] LABS: Poikilocytosis Trace
[2023-04-20 10:13] LABS: Anisocytosis 1+
[2023-04-20] MEDS: acetaminophen 325 mg Tablet 650 MG PO (13:23)
[2023-04-20] MEDS: diphenhydrAMINE 25 mg Capsule PO (13:23)
[2023-04-20 14:00] VITALS: BP 87/46; PULSE 77; RESP 18; TEMP 36.1; O2SAT 92
[2023-04-20 14:10] VITALS: BP 97/54; PULSE 75; RESP 18; TEMP 36.5; O2SAT 93
[2023-04-20 14:20] VITALS: BP 97/54; PULSE 75; RESP 18; TEMP 36.5; O2SAT 93
[2023-04-28 08:11] VITALS: BP 119/69; PULSE 83; RESP 18; TEMP 36.8; O2SAT 97
[2023-04-28 08:28] LABS: Hematocrit 29.2 % (42.0-52.0); Hemoglobin 9.3 g/dL (11.7-16.6); Mean Corpuscular HGB Conc 31.8 g/dL (30.0-36.0); Mean Corpuscular Hemoglobin 30.6 pg (28.0-34.0); Mean Corpuscular Volume 96.1 fl (80-94); Red Blood Count 3.04 10^6/uL (4.1-5.3); Red Cell Distribution Width 19.1 % (12.1-15.1); White Blood Count 22.2 10^3/uL (4.0-10.0)
[2023-04-28 09:07] LABS: Platelet Count 6 10^3/cmm (130-400)
[2023-04-28 09:08] LABS: Slide Review Slide Review Perform
[2023-04-28 09:09] LABS: Absolute Segmented Neutrophil 13.5 10/cmm (1.6-7.1); Eosinophils 0 %; Lymphocytes 11 %; Lymphocytes Absolute 3.6 10^3/cmm (1.2-3.4); Monocytes Absolute 0.4 10^3/cmm (0.1-0.6); Segmented Neutrophils 61 %; Total Cells Counted 100 (0-100)
[2023-04-28 09:10] LABS: Absolute Neutrophil 15.5 10^3/cmm (1.4-6.5); Macrocytosis 1+; Platelet Estimate Decreased (Normal); Polychromasia 1+
[2023-04-28] MEDS: acetaminophen 325 mg Tablet 650 MG PO (12:58)
[2023-04-28] MEDS: diphenhydrAMINE 25 mg Capsule PO (12:58)
[2023-04-28 13:15] VITALS: BP 119/64; PULSE 79; RESP 16; TEMP 36.6; O2SAT 97
[2023-04-28 13:44] VITALS: BP 124/62; PULSE 76; RESP 16; TEMP 36.6; O2SAT 99
[2023-04-28 14:14] VITALS: BP 99/54; PULSE 87; RESP 16; TEMP 36.1; O2SAT 98
[2023-05-04 08:52] VITALS: BP 93/56; PULSE 108; RESP 18; TEMP 36.5; O2SAT 96
[2023-05-04 09:15] LABS: Hematocrit 28.5 % (42.0-52.0); Hemoglobin 9.3 g/dL (11.7-16.6); Mean Corpuscular HGB Conc 32.6 g/dL (30.0-36.0); Mean Corpuscular Hemoglobin 30.8 pg (28.0-34.0); Mean Corpuscular Volume 94.4 fl (80-94); Red Blood Count 3.02 10^6/uL (4.1-5.3); White Blood Count 21.6 10^3/uL (4.0-10.0)
[2023-05-04 09:34] LABS: Alanine Aminotransferase 8 U/L (0-41); Albumin Level 4.1 g/dL (3.5-5.2); Alkaline Phosphatase 103 U/L (40-130); Blood Urea Nitrogen 20 mg/dL (8-23); Calcium 8.8 mg/dL (8.5-10.5); Carbon Dioxide 24 mmol/L (22-29); Chloride 95 mmol/L (98-107); Globulin 2.7 g/dL (1.3-4.6); Glucose 221 mg/dL (65-115); Osmolality Calculated 277 mOsm/kg (285-295); Sodium 129 mmol/L (136-145); Total Bilirubin 0.4 mg/dL (0.15-1.2); Total Protein 6.8 g/dL (6.6-8.7)
[2023-05-04 09:37] LABS: Anion Gap 15.7 (5-19); Aspartate Amino Transferase 14 U/L (0-40); Potassium 5.7 mmol/L (3.5-5.1)
[2023-05-04 09:48] LABS: Slide Review Slide Review Perform
[2023-05-04 09:49] LABS: Platelet Count 12 10^3/cmm (130-400)
[2023-05-04 09:58] LABS: Absolute Segmented Neutrophil 11.9 10/cmm (1.6-7.1); Band Neutrophils Absolute 2.8 10^3/cmm (0.0-1.2); Eosinophils 0 %; Lymphocytes 19 %; Lymphocytes Absolute 4.3 10^3/cmm (1.2-3.4); Monocytes Absolute 0.2 10^3/cmm (0.1-0.6); Segmented Neutrophils 55 %; Total Cells Counted 100 (0-100)
[2023-05-04 09:59] LABS: Absolute Neutrophil 14.7 10^3/cmm (1.4-6.5); Anisocytosis 2+; Macrocytosis 1+; Platelet Estimate Decreased (Normal); Poikilocytosis Trace; Smudge Cells 1+
[2023-05-04] MEDS: ondansetron 4 MG Tablet 8 MG PO (11:34)
[2023-05-04] MEDS: acetaminophen 325 mg Tablet 650 MG PO (12:44)
[2023-05-04] MEDS: diphenhydrAMINE 25 mg Capsule PO (12:45)
[2023-05-04 13:22] VITALS: PULSE 93; RESP 18; TEMP 36.5; O2SAT 97
[2023-05-04 13:55] VITALS: BP 89/57; PULSE 89; RESP 18; TEMP 35.9; O2SAT 95
[2023-05-04 14:06] VITALS: BP 92/52; PULSE 90; RESP 18; TEMP 36.1; O2SAT 96
[2023-05-04 14:10] VITALS: BP 92/52; PULSE 90; RESP 18; TEMP 36.1; O2SAT 96
[2023-05-05 09:15] VITALS: BP 93/51; PULSE 85; RESP 18; TEMP 36.6; O2SAT 96
[2023-05-05] MEDS: ondansetron 4 MG Tablet 8 MG PO (09:20)
[2023-05-05 09:38] VITALS: BP 147/82; PULSE 74; RESP 18; TEMP 36.6; O2SAT 98
[2023-05-06 09:00] VITALS: BP 99/56; PULSE 81; RESP 18; TEMP 36.6; O2SAT 96
[2023-05-06] MEDS: ondansetron 4 MG Tablet 8 MG PO (09:30)
[2023-05-06 09:46] VITALS: BP 98/53; PULSE 84; RESP 18; TEMP 36.7; O2SAT 96
[2023-05-07 08:49] VITALS: BP 107/61; PULSE 97; RESP 17; TEMP 36.7; O2SAT 99
[2023-05-07] MEDS: ondansetron 4 MG Tablet 8 MG PO (08:53)
[2023-05-07 09:40] VITALS: BP 105/62; PULSE 84; RESP 18; TEMP 36.6
[2023-05-08] MEDS: ondansetron 4 MG Tablet 8 MG PO (08:51)
[2023-05-08 08:55] VITALS: BP 90/54; PULSE 94; RESP 18; TEMP 36.3; O2SAT 97
== END 2023-05-11 23:59 | disposition home or self-care (01) ==
PROVIDERS: Internal Medicine Medical Oncology; Nurse Practitioner Family; PCP Family Medicine; Visit Provider Internal Medicine Hematology & Oncology
DX: Z51.11 Encounter for antineoplastic chemotherapy (principal); D47.1 Chronic myeloproliferative disease
CPT/HCPCS: 36430; 80053; 85007; 85025; 86900; 96402; 96409; 99214; J7050; J9025; P9016; P9035; P9037; P9040; Q0162

== ENCOUNTER 2023-06-05 09:00 | Oncology outpatient (recurring) (ONCR) | payer MEDICARE, SELFPAY ==
[2023-05-12 08:51] VITALS: BP 107/56; PULSE 98; RESP 17; TEMP 36.4; O2SAT 98
[2023-05-12 09:00] VITALS: BMI 26.4
[2023-05-12 09:11] LABS: Hematocrit 26.5 % (42.0-52.0); Hemoglobin 8.5 g/dL (11.7-16.6); Mean Corpuscular HGB Conc 32.1 g/dL (30.0-36.0); Mean Corpuscular Hemoglobin 30.5 pg (28.0-34.0); Red Blood Count 2.79 10^6/uL (4.1-5.3)
[2023-05-12 09:28] LABS: Alanine Aminotransferase 9 U/L (0-41); Albumin Level 4.2 g/dL (3.5-5.2); Alkaline Phosphatase 102 U/L (40-130); Anion Gap 14.4 (5-19); Aspartate Amino Transferase 11 U/L (0-40); Blood Urea Nitrogen 24 mg/dL (8-23); Carbon Dioxide 25 mmol/L (22-29); Chloride 97 mmol/L (98-107); Globulin 2.9 g/dL (1.3-4.6); Glucose 244 mg/dL (65-115); Osmolality Calculated 284 mOsm/kg (285-295); Potassium 5.4 mmol/L (3.5-5.1); Sodium 131 mmol/L (136-145); Total Bilirubin 0.4 mg/dL (0.15-1.2); Total Protein 7.1 g/dL (6.6-8.7)
[2023-05-12 09:43] LABS: Slide Review Slide Review Perform
[2023-05-12 09:44] LABS: Platelet Count 8 10^3/cmm (130-400)
[2023-05-12 09:45] LABS: Absolute Neutrophil 15.4 10^3/cmm (1.4-6.5); Absolute Segmented Neutrophil 14.3 10/cmm (1.6-7.1); Band Neutrophils Absolute 1.2 10^3/cmm (0.0-1.2); Eosinophils 0 %; Lymphocytes 17 %; Lymphocytes Absolute 3.9 10^3/cmm (1.2-3.4); Macrocytosis 1+; Monocytes Absolute 0.2 10^3/cmm (0.1-0.6); Platelet Estimate Decreased (Normal); Polychromasia 1+; Segmented Neutrophils 62 %; Total Cells Counted 100 (0-100)
[2023-05-12] MEDS: diphenhydrAMINE 25 mg Capsule PO (13:09)
[2023-05-12] MEDS: acetaminophen 325 mg Tablet 650 MG PO (13:09)
[2023-05-12 13:23] VITALS: BP 110/65; PULSE 90; RESP 18; TEMP 36.6; O2SAT 98
[2023-05-12 13:45] VITALS: BP 105/72; PULSE 80; RESP 16; RESP 18; TEMP 36.6; O2SAT 97
[2023-05-12 13:57] VITALS: BP 93/47; PULSE 75; RESP 18; TEMP 36.9; O2SAT 97
[2023-05-12 14:05] VITALS: BP 101/66; PULSE 81; RESP 16; TEMP 35.9; O2SAT 98
[2023-05-12 14:15] VITALS: BP 101/64; PULSE 77; RESP 16; TEMP 35.8; O2SAT 98
--- NOTE | 2023-05-12 15:25 | PC.NURSE ---
unable to close out patelet
[2023-05-14 09:25] VITALS: BP 91/55; PULSE 91; TEMP 36.3; O2SAT 98
[2023-05-14 09:39] LABS: Hematocrit 27.2 % (42.0-52.0); Hemoglobin 8.8 g/dL (11.7-16.6); Mean Corpuscular HGB Conc 32.4 g/dL (30.0-36.0); Mean Corpuscular Hemoglobin 30.9 pg (28.0-34.0); Mean Corpuscular Volume 95.4 fl (80-94); Platelet Count 47 10^3/cmm (130-400); Red Blood Count 2.85 10^6/uL (4.1-5.3); Red Cell Distribution Width 19.3 % (12.1-15.1); White Blood Count 23.7 10^3/uL (4.0-10.0)
[2023-05-14 10:25] LABS: Alanine Aminotransferase 9 U/L (0-41); Albumin Level 4.2 g/dL (3.5-5.2); Alkaline Phosphatase 99 U/L (40-130); Anion Gap 16.4 (5-19); Aspartate Amino Transferase 12 U/L (0-40); Blood Urea Nitrogen 25 mg/dL (8-23); Calcium 9.1 mg/dL (8.5-10.5); Carbon Dioxide 26 mmol/L (22-29); Chloride 95 mmol/L (98-107); Globulin 3.1 g/dL (1.3-4.6); Glucose 124 mg/dL (65-115); Osmolality Calculated 280 mOsm/kg (285-295); Potassium 5.4 mmol/L (3.5-5.1); Sodium 132 mmol/L (136-145); Total Bilirubin 0.5 mg/dL (0.15-1.2); Total Protein 7.3 g/dL (6.6-8.7)
[2023-05-14 10:27] LABS: Absolute Segmented Neutrophil 14.9 10/cmm (1.6-7.1); Band Neutrophils Absolute 1.9 10^3/cmm (0.0-1.2); Eosinophils 0 %; Lymphocytes 20 %; Lymphocytes Absolute 5.5 10^3/cmm (1.2-3.4); Segmented Neutrophils 63 %; Slide Review Slide Review Perform; Total Cells Counted 100 (0-100)
[2023-05-14 10:28] LABS: Absolute Neutrophil 16.8 10^3/cmm (1.4-6.5); Platelet Estimate Decreased (Normal)
[2023-05-18 08:58] VITALS: BP 98/59; PULSE 81; RESP 18; TEMP 36.1; O2SAT 97
[2023-05-18 09:03] VITALS: BMI 26.3
[2023-05-18 09:28] LABS: Hematocrit 26.1 % (42.0-52.0); Hemoglobin 8.4 g/dL (11.7-16.6); Mean Corpuscular HGB Conc 32.2 g/dL (30.0-36.0); Mean Corpuscular Hemoglobin 30.7 pg (28.0-34.0); Mean Corpuscular Volume 95.3 fl (80-94); Red Blood Count 2.74 10^6/uL (4.1-5.3); Red Cell Distribution Width 19.8 % (12.1-15.1); White Blood Count 22.2 10^3/uL (4.0-10.0)
[2023-05-18 09:56] LABS: Platelet Count 11 10^3/cmm (130-400); Slide Review Slide Review Perform
[2023-05-18 09:57] LABS: Alanine Aminotransferase 8 U/L (0-41); Albumin Level 4.1 g/dL (3.5-5.2); Alkaline Phosphatase 97 U/L (40-130); Anion Gap 14.9 (5-19); Aspartate Amino Transferase 13 U/L (0-40); Blood Urea Nitrogen 32 mg/dL (8-23); Calcium 8.9 mg/dL (8.5-10.5); Carbon Dioxide 26 mmol/L (22-29); Chloride 96 mmol/L (98-107); Glucose 164 mg/dL (65-115); Osmolality Calculated 285 mOsm/kg (285-295); Potassium 4.9 mmol/L (3.5-5.1); Sodium 132 mmol/L (136-145); Total Bilirubin 0.4 mg/dL (0.15-1.2); Total Protein 7.1 g/dL (6.6-8.7)
[2023-05-18 10:02] LABS: Absolute Eosinophils 0.4 10^3/cmm (0.0-0.7); Absolute Segmented Neutrophil 10.2 10/cmm (1.6-7.1); Band Neutrophils Absolute 2.9 10^3/cmm (0.0-1.2); Eosinophils 2 %; Lymphocytes 14 %; Segmented Neutrophils 46 %; Total Cells Counted 100 (0-100)
[2023-05-18 10:03] LABS: Absolute Neutrophil 13.1 10^3/cmm (1.4-6.5); Anisocytosis 2+; Platelet Estimate Decreased (Normal); Poikilocytosis Trace
[2023-05-18 10:04] LABS: Lymphocytes Absolute 3.1 10^3/cmm (1.2-3.4)
[2023-05-18] MEDS: diphenhydrAMINE 25 mg Capsule PO (13:55)
[2023-05-18] MEDS: acetaminophen 325 mg Tablet 650 MG PO (13:55)
[2023-05-18 14:18] VITALS: BP 105/57; PULSE 77; RESP 18; TEMP 36.6; O2SAT 97
[2023-05-18 14:50] VITALS: BP 103/56; PULSE 75; RESP 18; TEMP 36.6; O2SAT 97
[2023-05-25 09:31] VITALS: BP 98/57; PULSE 89; RESP 18; TEMP 36.6; O2SAT 97
[2023-05-25 09:32] VITALS: BMI 25.7
[2023-05-25 09:50] LABS: Hemoglobin 8.7 g/dL (11.7-16.6); Mean Corpuscular HGB Conc 32.2 g/dL (30.0-36.0); Mean Corpuscular Hemoglobin 30.2 pg (28.0-34.0); Mean Corpuscular Volume 93.8 fl (80-94); Red Blood Count 2.88 10^6/uL (4.1-5.3); Red Cell Distribution Width 19.8 % (12.1-15.1); White Blood Count 20.1 10^3/uL (4.0-10.0)
[2023-05-25 10:31] LABS: Alanine Aminotransferase 8 U/L (0-41); Albumin Level 4.1 g/dL (3.5-5.2); Alkaline Phosphatase 89 U/L (40-130); Anion Gap 14.9 (5-19); Aspartate Amino Transferase 11 U/L (0-40); Blood Urea Nitrogen 29 mg/dL (8-23); Carbon Dioxide 26 mmol/L (22-29); Chloride 99 mmol/L (98-107); Glucose 130 mg/dL (65-115); Osmolality Calculated 288 mOsm/kg (285-295); Potassium 4.9 mmol/L (3.5-5.1); Sodium 135 mmol/L (136-145); Total Bilirubin 0.5 mg/dL (0.15-1.2); Total Protein 7.1 g/dL (6.6-8.7)
[2023-05-25 10:40] LABS: Slide Review Slide Review Perform
[2023-05-25 10:45] LABS: Absolute Eosinophils 0.4 10^3/cmm (0.0-0.7); Absolute Segmented Neutrophil 9.6 10/cmm (1.6-7.1); Band Neutrophils Absolute 3.6 10^3/cmm (0.0-1.2); Basophils Absolute 0.2 10^3/cmm (0.0-0.2); Eosinophils 2 %; Lymphocytes 14 %; Monocytes Absolute 0.4 10^3/cmm (0.1-0.6); Segmented Neutrophils 48 %; Total Cells Counted 100 (0-100)
[2023-05-25 10:47] LABS: Anisocytosis 2+; Macrocytosis 1+; Poikilocytosis Trace
[2023-05-25 10:48] LABS: Absolute Neutrophil 13.3 10^3/cmm (1.4-6.5); Platelet Estimate Decreased (Normal)
[2023-05-25 10:49] LABS: Platelet Count 11 10^3/cmm (130-400)
[2023-05-25] MEDS: diphenhydrAMINE 25 mg Capsule PO (15:01)
[2023-05-25] MEDS: acetaminophen 325 mg Tablet 650 MG PO (15:01)
[2023-05-25 15:28] VITALS: BP 102/64; PULSE 70; RESP 18; TEMP 35.9; O2SAT 97
[2023-05-25 15:40] VITALS: BP 97/59; PULSE 78; RESP 18; TEMP 36.1; O2SAT 97
[2023-05-28 10:40] LABS: Hematocrit 26.2 % (42.0-52.0); Hemoglobin 8.3 g/dL (11.7-16.6); Mean Corpuscular HGB Conc 31.7 g/dL (30.0-36.0); Mean Corpuscular Hemoglobin 30.1 pg (28.0-34.0); Mean Corpuscular Volume 94.9 fl (80-94); Red Blood Count 2.76 10^6/uL (4.1-5.3); Red Cell Distribution Width 19.5 % (12.1-15.1); White Blood Count 21.5 10^3/uL (4.0-10.0)
[2023-05-28 10:57] LABS: Alanine Aminotransferase 8 U/L (0-41); Albumin Level 4.4 g/dL (3.5-5.2); Alkaline Phosphatase 99 U/L (40-130); Anion Gap 15.6 (5-19); Aspartate Amino Transferase 10 U/L (0-40); Blood Urea Nitrogen 26 mg/dL (8-23); Carbon Dioxide 27 mmol/L (22-29); Chloride 96 mmol/L (98-107); Globulin 2.9 g/dL (1.3-4.6); Glucose 182 mg/dL (65-115); Osmolality Calculated 287 mOsm/kg (285-295); Potassium 4.6 mmol/L (3.5-5.1); Sodium 134 mmol/L (136-145); Total Bilirubin 0.4 mg/dL (0.15-1.2); Total Protein 7.3 g/dL (6.6-8.7)
[2023-05-28 11:18] LABS: Platelet Count 21 10^3/cmm (130-400); Slide Review Slide Review Perform
[2023-05-28 11:19] LABS: Absolute Neutrophil 16.8 10^3/cmm (1.4-6.5); Absolute Segmented Neutrophil 14.4 10/cmm (1.6-7.1); Band Neutrophils Absolute 2.4 10^3/cmm (0.0-1.2); Eosinophils 0 %; Lymphocytes 15 %; Lymphocytes Absolute 3.2 10^3/cmm (1.2-3.4); Monocytes Absolute 0.2 10^3/cmm (0.1-0.6); Platelet Estimate Decreased (Normal); Segmented Neutrophils 67 %; Total Cells Counted 100 (0-100)
[2023-05-28 11:20] LABS: Ovalocytes 1+; Polychromasia 1+
[2023-06-01 08:07] VITALS: BMI 26.9
[2023-06-01 08:08] VITALS: BP 102/66; PULSE 83; RESP 18; TEMP 36.9; O2SAT 98
[2023-06-01 08:20] LABS: Hematocrit 25.2 % (42.0-52.0); Hemoglobin 8.1 g/dL (11.7-16.6); Mean Corpuscular HGB Conc 32.1 g/dL (30.0-36.0); Mean Corpuscular Hemoglobin 30.7 pg (28.0-34.0); Mean Corpuscular Volume 95.5 fl (80-94); Red Blood Count 2.64 10^6/uL (4.1-5.3); Red Cell Distribution Width 19.4 % (12.1-15.1)
[2023-06-01 08:34] LABS: Alanine Aminotransferase 6 U/L (0-41); Albumin Level 4.2 g/dL (3.5-5.2); Alkaline Phosphatase 96 U/L (40-130); Anion Gap 14.5 (5-19); Aspartate Amino Transferase 10 U/L (0-40); Blood Urea Nitrogen 20 mg/dL (8-23); Calcium 8.8 mg/dL (8.5-10.5); Carbon Dioxide 28 mmol/L (22-29); Chloride 97 mmol/L (98-107); Globulin 2.7 g/dL (1.3-4.6); Glucose 219 mg/dL (65-115); Osmolality Calculated 289 mOsm/kg (285-295); Potassium 4.5 mmol/L (3.5-5.1); Sodium 135 mmol/L (136-145); Total Bilirubin 0.5 mg/dL (0.15-1.2); Total Protein 6.9 g/dL (6.6-8.7)
[2023-06-01 09:38] LABS: Slide Review Slide Review Perform
[2023-06-01 09:40] LABS: Platelet Count 8 10^3/cmm (130-400)
[2023-06-01 09:41] LABS: Absolute Segmented Neutrophil 9.4 10/cmm (1.6-7.1); Band Neutrophils Absolute 2.7 10^3/cmm (0.0-1.2); Eosinophils 0 %; Lymphocytes 13 %; Lymphocytes Absolute 2.2 10^3/cmm (1.2-3.4); Segmented Neutrophils 55 %; Total Cells Counted 100 (0-100)
[2023-06-01 09:42] LABS: Absolute Neutrophil 12.1 10^3/cmm (1.4-6.5); Anisocytosis Trace; Blastocytes 2 % (0-0); Corrected White Blood Count 16.3 10^3/cmm (4.8-10.8); Platelet Estimate Decreased (Normal); Poikilocytosis 1+
[2023-06-01 09:43] LABS: Smudge Cells Trace; Tear Drop Cells 1+
[2023-06-01] MEDS: acetaminophen 325 mg Tablet 650 MG PO (13:36)
[2023-06-01] MEDS: diphenhydrAMINE 25 mg Capsule PO (13:36)
[2023-06-01 14:00] VITALS: BP 82/44; PULSE 77; RESP 18; TEMP 36.3; O2SAT 77
[2023-06-01 14:08] VITALS: BP 96/49; PULSE 80; RESP 18; TEMP 36.7; O2SAT 95
[2023-06-01 14:21] VITALS: BP 82/47; PULSE 78; RESP 18; TEMP 36.4; O2SAT 98
[2023-06-01 14:30] VITALS: BP 96/51; PULSE 79; RESP 16; TEMP 36.7; O2SAT 97
[2023-06-02 09:09] VITALS: BP 75/40; PULSE 89; RESP 18; TEMP 37.3; O2SAT 97
[2023-06-02 09:24] LABS: Hematocrit 23.8 % (42.0-52.0); Hemoglobin 7.4 g/dL (11.7-16.6); Mean Corpuscular HGB Conc 31.1 g/dL (30.0-36.0); Mean Corpuscular Volume 96.4 fl (80-94); Mean Platelet Volume 9.2 fL (7.4-10.4); Platelet Count 69 10^3/cmm (130-400); Red Blood Count 2.47 10^6/uL (4.1-5.3); Red Cell Distribution Width 19.6 % (12.1-15.1); White Blood Count 13.7 10^3/uL (4.0-10.0)
[2023-06-02 10:14] LABS: Absolute Eosinophils 0.1 10^3/cmm (0.0-0.7); Absolute Neutrophil 10.8 10^3/cmm (1.4-6.5); Absolute Segmented Neutrophil 9.9 10/cmm (1.6-7.1); Corrected White Blood Count 12.8 10^3/cmm (4.8-10.8); Eosinophils 1 %; Lymphocytes 6 %; Lymphocytes Absolute 1.2 10^3/cmm (1.2-3.4); Monocytes Absolute 0.1 10^3/cmm (0.1-0.6); Platelet Estimate Decreased (Normal); Segmented Neutrophils 72 %; Slide Review Slide Review Perform; Total Cells Counted 100 (0-100)
[2023-06-02 10:15] LABS: Macrocytosis 1+; Microcytosis 1+; Polychromasia 1+
[2023-06-02] MEDS: ondansetron 4 MG Tablet 8 MG PO (10:35)
[2023-06-02 11:28] VITALS: BP 74/46; PULSE 80; RESP 18; TEMP 36.3; O2SAT 98
[2023-06-03 08:49] VITALS: BP 86/45; PULSE 87; RESP 18; TEMP 36.8; O2SAT 94
[2023-06-03] MEDS: ondansetron 4 MG Tablet 8 MG PO (08:54)
[2023-06-03 09:20] VITALS: BP 77/40; PULSE 90; RESP 18; TEMP 36.3; O2SAT 97
[2023-06-04 09:58] LABS: Basophils # 0.4 10^3/uL (0.0-0.1); Basophils % 2.5 %; Eosinophils # 0.5 10^3/uL (0.0-0.8); Eosinophils % 3.1 %; Hematocrit 26.1 % (37-53); Lymphocytes # 2.3 10^3/uL (0.8-4.8); Lymphocytes % 15.6 %; Mean Corpuscular HGB Conc 31.8 g/dL (30-55); Mean Corpuscular Hemoglobin 30.4 pg (27-33); Mean Corpuscular Volume 95.6 fl (82-101); Mean Platelet Volume 10.6 fL (7.4-10.4); Monocytes # 0.7 10^3/uL (0.2-0.9); Monocytes % 4.8 %; Neutrophils # 8.61 10^3/uL (1.8-7.7); Nucleated Red Blood Cells # 0.5 /100WBC; Nucleated Red Blood Cells % 3.3 %; Platelet Count 37 10^3/cmm (157-399); Red Blood Count 2.73 10^6/uL (3.85-5.65); Red Cell Distribution Width 19.7 % (12.1-15.1); White Blood Count 14.85 10^3/uL (3.29-11.43)
[2023-06-04 10:16] VITALS: BP 75/45; PULSE 83; RESP 17; TEMP 36.8; O2SAT 90
[2023-06-04 10:48] LABS: Slide Review Slide Review Perform
[2023-06-04] MEDS: ondansetron 4 MG Tablet 8 MG PO (11:01)
[2023-06-04 11:16] VITALS: BP 90/48; PULSE 78; RESP 18; TEMP 36.9; O2SAT 95
[2023-06-05 09:30] VITALS: BP 82/45; PULSE 87; TEMP 36.6; O2SAT 95
[2023-06-05 09:40] VITALS: BMI 26.6
[2023-06-05] MEDS: ondansetron 4 MG Tablet 8 MG PO (10:01)
[2023-06-05 10:20] VITALS: BP 86/45; PULSE 57; RESP 17; TEMP 36.6; O2SAT 99
== END 2023-06-05 23:59 | disposition home or self-care (01) ==
PROVIDERS: Internal Medicine Medical Oncology; Nurse Practitioner Family; PCP Family Medicine; Visit Provider Internal Medicine Medical Oncology
DX: D47.1 Chronic myeloproliferative disease (principal)
CPT/HCPCS: 36415; 36430; 80053; 85007; 85025; 86850; 86900; 99214; J9025; P9035; P9037; P9040; Q0162

== ENCOUNTER 2023-06-09 08:41 | Oncology outpatient (recurring) (ONCR) | payer MEDICARE, SELFPAY ==
[2023-06-09 08:56] VITALS: BP 99/62; PULSE 80; RESP 18; TEMP 36.3; O2SAT 98
[2023-06-09 09:26] LABS: Mean Corpuscular HGB Conc 31.5 g/dL (30-55); Mean Corpuscular Hemoglobin 30.4 pg (27-33); Mean Corpuscular Volume 96.4 fl (82-101); Red Cell Distribution Width 20.4 % (12.1-15.1); White Blood Count 15.54 10^3/uL (3.29-11.43)
[2023-06-09 09:41] LABS: Alanine Aminotransferase 9 U/L (0-41); Albumin Level 4.2 g/dL (3.5-5.2); Alkaline Phosphatase 112 U/L (40-130); Aspartate Amino Transferase 14 U/L (0-40); Blood Urea Nitrogen 25 mg/dL (8-23); Calcium 9.5 mg/dL (8.5-10.5); Carbon Dioxide 29 mmol/L (22-29); Chloride 92 mmol/L (98-107); Globulin 3.3 g/dL (1.3-4.6); Glucose 174 mg/dL (65-115); Osmolality Calculated 281 mOsm/kg (285-295); Sodium 131 mmol/L (136-145); Total Bilirubin 0.9 mg/dL (0.15-1.2); Total Protein 7.5 g/dL (6.6-8.7)
[2023-06-09 10:00] LABS: Absolute Eosinophils 0.2 10^3/cmm (0.0-0.7); Absolute Neutrophil 10.7 10^3/cmm (1.4-6.5); Absolute Segmented Neutrophil 8.2 10/cmm (1.6-7.1); Band Neutrophils Absolute 2.5 10^3/cmm (0.0-1.2); Eosinophils 1 %; Lymphocytes 13 %; Lymphocytes Absolute 2.2 10^3/cmm (1.2-3.4); Platelet Estimate Decreased (Normal); Polychromasia 1+; Segmented Neutrophils 53 %; Slide Review Slide Review Perform; Total Cells Counted 100 (0-100)
[2023-06-09 10:01] LABS: Macrocytosis 1+; Microcytosis 1+; Ovalocytes 1+
[2023-06-09 10:02] LABS: Platelet Count 9 10^3/cmm (157-399)
[2023-06-09] MEDS: acetaminophen 325 mg Tablet 650 MG PO (13:44)
[2023-06-09] MEDS: diphenhydrAMINE 25 mg Capsule PO (13:44)
[2023-06-09 14:00] VITALS: BP 87/49; PULSE 87; RESP 18; TEMP 36.6; O2SAT 97
[2023-06-09 14:11] VITALS: BP 89/53; PULSE 77; RESP 18; TEMP 36.6; O2SAT 99
[2023-06-09 14:33] VITALS: BP 82/51; PULSE 79; RESP 18; TEMP 36.6; O2SAT 96
[2023-06-09 14:50] VITALS: BP 92/58; PULSE 78; RESP 18; TEMP 36.6; O2SAT 98
[2023-06-09 15:00] VITALS: BP 92/58; PULSE 77; RESP 18; TEMP 36.6; O2SAT 98
== END 2023-06-11 23:59 | disposition home or self-care (01) ==
PROVIDERS: PCP Family Medicine; Visit Provider Internal Medicine Medical Oncology
DX: D47.1 Chronic myeloproliferative disease (principal); D69.6 Thrombocytopenia, unspecified; D64.9 Anemia, unspecified; Z79.899 Other long term (current) drug therapy
CPT/HCPCS: 36415; 36430; 80053; 85007; 85025; 86850; 86900; 99214; P9035

== ENCOUNTER → 2023-06-11 08:21 | Outpatient (BNVA) | payer MEDICARE, SELFPAY | PROVIDERS: PCP Family Medicine; Visit Provider Internal Medicine Medical Oncology | DX: D69.6 Thrombocytopenia, unspecified (principal) | CPT/HCPCS: 85007; 85025 ==

== ENCOUNTER → 2023-06-18 08:17 | Outpatient (BNVA) | payer MEDICARE, SELFPAY | PROVIDERS: PCP Family Medicine; Visit Provider Internal Medicine Medical Oncology | DX: D69.6 Thrombocytopenia, unspecified (principal) | CPT/HCPCS: 85007; 85025 ==

== ENCOUNTER → 2023-06-25 08:44 | Outpatient (BNVA) | payer MEDICARE, SELFPAY | PROVIDERS: PCP Family Medicine; Visit Provider Internal Medicine Medical Oncology | DX: D69.6 Thrombocytopenia, unspecified (principal) | CPT/HCPCS: 85007; 85025; 86850; 86900 ==

== ENCOUNTER → 2023-07-03 08:42 | Outpatient (BNVA) | payer MEDICARE, SELFPAY | PROVIDERS: PCP Family Medicine; Visit Provider Internal Medicine Medical Oncology | DX: D64.9 Anemia, unspecified (principal); D69.6 Thrombocytopenia, unspecified | CPT/HCPCS: 85007; 85025 ==

== ENCOUNTER 2023-07-06 09:15 | Oncology outpatient (recurring) (ONCR) | payer MEDICARE, SELFPAY ==
[2023-06-16 08:52] VITALS: BP 95/56; PULSE 98; RESP 18; TEMP 36.7; O2SAT 95
[2023-06-16 09:22] LABS: Hematocrit 26.7 % (37-53); Mean Corpuscular HGB Conc 31.1 g/dL (30-55); Mean Corpuscular Hemoglobin 30.7 pg (27-33); Mean Corpuscular Volume 98.9 fl (82-101); Red Cell Distribution Width 20.3 % (12.1-15.1); White Blood Count 13.96 10^3/uL (3.29-11.43)
[2023-06-16 09:35] LABS: Alanine Aminotransferase 11 U/L (0-41); Alkaline Phosphatase 97 U/L (40-130); Anion Gap 13.4 (5-19); Aspartate Amino Transferase 16 U/L (0-40); Blood Urea Nitrogen 23 mg/dL (8-23); Calcium 8.5 mg/dL (8.5-10.5); Carbon Dioxide 26 mmol/L (22-29); Chloride 100 mmol/L (98-107); Globulin 2.9 g/dL (1.3-4.6); Glucose 312 mg/dL (65-115); Osmolality Calculated 296 mOsm/kg (285-295); Potassium 4.4 mmol/L (3.5-5.1); Sodium 135 mmol/L (136-145); Total Bilirubin 0.5 mg/dL (0.15-1.2); Total Protein 6.9 g/dL (6.6-8.7)
[2023-06-16 09:42] LABS: Testosterone Total 457.7 ng/dL (193-740)
[2023-06-16 10:27] LABS: Absolute Eosinophils 0.1 10^3/cmm (0.0-0.7); Absolute Segmented Neutrophil 5.9 10/cmm (1.6-7.1); Band Neutrophils Absolute 2.4 10^3/cmm (0.0-1.2); Eosinophils 1 %; Lymphocytes 11 %; Platelet Count 9 10^3/cmm (157-399); Segmented Neutrophils 42 %; Total Cells Counted 100 (0-100)
[2023-06-16 10:28] LABS: Absolute Neutrophil 8.2 10^3/cmm (1.4-6.5); Anisocytosis 3+; Platelet Estimate Decreased (Normal)
[2023-06-16] MEDS: acetaminophen 325 mg Tablet 650 MG PO (13:19)
[2023-06-16] MEDS: diphenhydrAMINE 25 mg Capsule PO (13:19)
[2023-06-16 13:30] VITALS: BP 104/61; PULSE 75; RESP 17; TEMP 36.7; O2SAT 98
[2023-06-16 14:25] VITALS: BP 117/67; PULSE 74; RESP 18; TEMP 36.7; O2SAT 97
[2023-06-22 08:10] VITALS: BP 109/56; PULSE 90; RESP 17; TEMP 36.8; O2SAT 96
[2023-06-22 08:42] LABS: Hematocrit 26.1 % (37-53); Mean Corpuscular HGB Conc 31.4 g/dL (30-55); Mean Corpuscular Hemoglobin 30.8 pg (27-33); Mean Corpuscular Volume 98.1 fl (82-101); Red Blood Count 2.66 10^6/uL (3.85-5.65); Red Cell Distribution Width 20.4 % (12.1-15.1); White Blood Count 16.51 10^3/uL (3.29-11.43)
[2023-06-22 09:07] LABS: Alanine Aminotransferase 12 U/L (0-41); Albumin Level 4.2 g/dL (3.5-5.2); Alkaline Phosphatase 102 U/L (40-130); Anion Gap 14.2 (5-19); Aspartate Amino Transferase 18 U/L (0-40); Blood Urea Nitrogen 27 mg/dL (8-23); Calcium 9.3 mg/dL (8.5-10.5); Carbon Dioxide 28 mmol/L (22-29); Chloride 97 mmol/L (98-107); Globulin 2.9 g/dL (1.3-4.6); Glucose 270 mg/dL (65-115); Osmolality Calculated 295 mOsm/kg (285-295); Potassium 4.2 mmol/L (3.5-5.1); Sodium 135 mmol/L (136-145); Total Bilirubin 0.7 mg/dL (0.15-1.2); Total Protein 7.1 g/dL (6.6-8.7)
[2023-06-22 09:10] LABS: Slide Review Slide Review Perform
[2023-06-22 09:11] LABS: Platelet Count 10 10^3/cmm (157-399)
[2023-06-22 09:15] LABS: Absolute Neutrophil 11.4 10^3/cmm (1.4-6.5); Absolute Segmented Neutrophil 9.7 10/cmm (1.6-7.1); Band Neutrophils Absolute 1.7 10^3/cmm (0.0-1.2); Eosinophils 0 %; Lymphocytes 13 %; Lymphocytes Absolute 2.3 10^3/cmm (1.2-3.4); Monocytes Absolute 0.3 10^3/cmm (0.1-0.6); Platelet Estimate Decreased (Normal); Segmented Neutrophils 59 %; Total Cells Counted 100 (0-100)
[2023-06-22] MEDS: diphenhydrAMINE 25 mg Capsule PO (13:09)
[2023-06-22] MEDS: acetaminophen 325 mg Tablet 650 MG PO (13:09)
[2023-06-22 13:51] VITALS: BP 112/57; PULSE 95; TEMP 36.8
[2023-06-22 14:27] VITALS: BP 117/70; PULSE 80; TEMP 36.9; O2SAT 97
[2023-06-22 14:35] VITALS: BP 114/58; PULSE 85; O2SAT 99
[2023-06-22 14:44] VITALS: BP 114/58; PULSE 85; TEMP 36.9; O2SAT 99
[2023-06-29 07:57] VITALS: BP 123/73; PULSE 75; RESP 16; TEMP 36.6
[2023-06-29 08:37] LABS: Hematocrit 28.8 % (37-53); Mean Corpuscular HGB Conc 31.3 g/dL (30-55); Mean Corpuscular Hemoglobin 30.6 pg (27-33); Red Blood Count 2.94 10^6/uL (3.85-5.65); Red Cell Distribution Width 20.3 % (12.1-15.1); White Blood Count 15.78 10^3/uL (3.29-11.43)
[2023-06-29 08:47] LABS: Alanine Aminotransferase 11 U/L (0-41); Albumin Level 4.4 g/dL (3.5-5.2); Alkaline Phosphatase 122 U/L (40-130); Anion Gap 14.8 (5-19); Aspartate Amino Transferase 17 U/L (0-40); Blood Urea Nitrogen 27 mg/dL (8-23); Calcium 9.3 mg/dL (8.5-10.5); Carbon Dioxide 27 mmol/L (22-29); Chloride 94 mmol/L (98-107); Globulin 3.3 g/dL (1.3-4.6); Glucose 185 mg/dL (65-115); Osmolality Calculated 282 mOsm/kg (285-295); Potassium 4.8 mmol/L (3.5-5.1); Sodium 131 mmol/L (136-145); Total Bilirubin 0.8 mg/dL (0.15-1.2); Total Protein 7.7 g/dL (6.6-8.7)
[2023-06-29 09:21] LABS: Absolute Neutrophil 12.6 10^3/cmm (1.4-6.5); Absolute Segmented Neutrophil 10.7 10/cmm (1.6-7.1); Band Neutrophils Absolute 1.9 10^3/cmm (0.0-1.2); Corrected White Blood Count 14.7 10^3/cmm (4.8-10.8); Eosinophils 0 %; Lymphocytes 9 %; Lymphocytes Absolute 2.2 10^3/cmm (1.2-3.4); Platelet Count 6 10^3/cmm (157-399); Platelet Estimate Decreased (Normal); Segmented Neutrophils 68 %; Slide Review Slide Review Perform; Total Cells Counted 100 (0-100)
[2023-06-29 11:29] LABS: Vitamin B12 653 pg/mL (232-1245)
[2023-06-29] MEDS: acetaminophen 325 mg Tablet 650 MG PO (13:49)
[2023-06-29] MEDS: diphenhydrAMINE 25 mg Capsule PO (13:49)
[2023-06-29 14:18] VITALS: BP 115/63; PULSE 78; RESP 18; TEMP 36.7; O2SAT 97
[2023-06-29 14:33] VITALS: BP 122/65; PULSE 74; RESP 18; TEMP 36.7; O2SAT 97
[2023-06-29 14:55] VITALS: BP 120/60; PULSE 73; RESP 17; TEMP 36.6; O2SAT 97
[2023-06-29 15:05] VITALS: BP 119/63; PULSE 74; RESP 17; TEMP 37; O2SAT 98
[2023-06-29 15:15] VITALS: BP 111/62; PULSE 77; RESP 17; TEMP 36.7; O2SAT 99
[2023-06-30 08:55] VITALS: BP 113/62; PULSE 96; RESP 16; TEMP 36.7
[2023-06-30 09:50] LABS: Basophils # 0.4 10^3/uL (0.0-0.1); Basophils % 3.2 %; Eosinophils # 0.2 10^3/uL (0.0-0.8); Eosinophils % 1.2 %; Hematocrit 27.5 % (37-53); Lymphocytes # 1.9 10^3/uL (0.8-4.8); Mean Corpuscular Hemoglobin 31.1 pg (27-33); Mean Corpuscular Volume 97.2 fl (82-101); Mean Platelet Volume 10.2 fL (7.4-10.4); Monocytes # 0.9 10^3/uL (0.2-0.9); Monocytes % 6.7 %; Neutrophils # 8.41 10^3/uL (1.8-7.7); Neutrophils % 61.2 %; Nucleated Red Blood Cells # 0.7 /100WBC; Nucleated Red Blood Cells % 4.9 %; Platelet Count 51 10^3/cmm (157-399); Red Blood Count 2.83 10^6/uL (3.85-5.65); Red Cell Distribution Width 20.1 % (12.1-15.1); White Blood Count 13.75 10^3/uL (3.29-11.43)
[2023-06-30 10:56] LABS: Slide Review Slide Review Perform
[2023-06-30] MEDS: ondansetron 4 MG Tablet 8 MG PO (11:46)
[2023-06-30 11:58] VITALS: BP 106/57; PULSE 86; TEMP 36.3; O2SAT 98
[2023-07-01] MEDS: ondansetron 4 MG Tablet 8 MG PO (08:50)
[2023-07-01 09:00] VITALS: BP 107/51; PULSE 88; TEMP 36.6; O2SAT 97
[2023-07-02 09:00] VITALS: BP 90/49; PULSE 84; O2SAT 97
[2023-07-02 09:57] LABS: Basophils # 0.3 10^3/uL (0.0-0.1); Basophils % 2.7 %; Eosinophils # 0.2 10^3/uL (0.0-0.8); Eosinophils % 1.7 %; Hematocrit 26.8 % (37-53); Lymphocytes # 1.7 10^3/uL (0.8-4.8); Lymphocytes % 16.8 %; Mean Corpuscular HGB Conc 32.1 g/dL (30-55); Mean Corpuscular Volume 96.8 fl (82-101); Monocytes # 0.7 10^3/uL (0.2-0.9); Monocytes % 6.5 %; Neutrophils # 5.79 10^3/uL (1.8-7.7); Neutrophils % 58.1 %; Nucleated Red Blood Cells # 0.5 /100WBC; Nucleated Red Blood Cells % 4.5 %; Red Blood Count 2.77 10^6/uL (3.85-5.65); Red Cell Distribution Width 20.1 % (12.1-15.1); White Blood Count 9.97 10^3/uL (3.29-11.43)
[2023-07-02] MEDS: ondansetron 4 MG Tablet 8 MG PO (10:45)
[2023-07-02 11:03] LABS: Slide Review Slide Review Perform
[2023-07-02 11:13] LABS: Platelet Count 16 10^3/cmm (157-399)
[2023-07-06 08:38] VITALS: BP 118/62; PULSE 73; RESP 16; TEMP 36.2
[2023-07-06] MEDS: diphenhydrAMINE 25 mg Capsule PO (09:59)
[2023-07-06] MEDS: acetaminophen 325 mg Tablet 650 MG PO (09:59)
[2023-07-06 10:41] VITALS: BP 104/54; PULSE 78; RESP 17; TEMP 36; O2SAT 98
[2023-07-06 10:50] VITALS: BP 112/52; PULSE 78; RESP 17; TEMP 36; O2SAT 99
[2023-07-06 11:14] VITALS: BP 109/54; PULSE 86; RESP 16; TEMP 36.3; O2SAT 98
[2023-07-06 11:21] VITALS: BP 110/55; PULSE 80; RESP 17; TEMP 36.3; O2SAT 80
[2023-07-06 11:35] VITALS: BP 110/55; PULSE 80; RESP 17; TEMP 36.6; O2SAT 99
== END 2023-07-06 23:59 | disposition home or self-care (01) ==
PROVIDERS: Internal Medicine Medical Oncology; PCP Family Medicine; Visit Provider Internal Medicine Medical Oncology
DX: D69.6 Thrombocytopenia, unspecified; D72.829 Elevated white blood cell count, unspecified
CPT/HCPCS: 36415; 36430; 80053; 82607; 84403; 85007; 85025; 86850; 86900; 99214; 99215; J9025; P9035; P9040; P9055; Q0162

== ENCOUNTER → 2023-07-10 08:27 | Outpatient (BNVA) | payer MEDICARE, SELFPAY | PROVIDERS: PCP Family Medicine; Visit Provider Internal Medicine Medical Oncology | DX: D64.9 Anemia, unspecified (principal); D69.6 Thrombocytopenia, unspecified | CPT/HCPCS: 85007; 85025 ==

== ENCOUNTER → 2023-07-17 08:22 | Outpatient (BNVA) | payer MEDICARE, SELFPAY | PROVIDERS: PCP Family Medicine; Visit Provider Internal Medicine Medical Oncology | DX: D69.6 Thrombocytopenia, unspecified (principal); D47.1 Chronic myeloproliferative disease | CPT/HCPCS: 85007; 85025; 86850; 86900 ==

== ENCOUNTER → 2023-07-24 08:49 | Outpatient (BNVA) | payer MEDICARE, SELFPAY | PROVIDERS: PCP Family Medicine; Visit Provider Internal Medicine Medical Oncology | DX: D64.9 Anemia, unspecified (principal); D69.6 Thrombocytopenia, unspecified | CPT/HCPCS: 85007; 85025 ==

== ENCOUNTER → 2023-08-03 09:10 | Outpatient (BNVA) | payer MEDICARE, SELFPAY | PROVIDERS: PCP Family Medicine; Visit Provider Internal Medicine Medical Oncology | DX: D64.9 Anemia, unspecified (principal); D72.829 Elevated white blood cell count, unspecified | CPT/HCPCS: 85025 ==

== ENCOUNTER 2023-08-04 09:00 | Oncology outpatient (recurring) (ONCR) | payer MEDICARE, SELFPAY ==
[2023-07-13] VITALS (7 sets, daily range): BP systolic 91–108; BP diastolic 52–60; PULSE 65–81; RESP 17–18; TEMP 36.4–36.9; O2SAT 95–98
[2023-07-13] MEDS: diphenhydrAMINE 25 mg Capsule PO (13:22)
[2023-07-13] MEDS: acetaminophen 325 mg Tablet 650 MG PO (13:22)
[2023-07-20 08:59] VITALS: BP 119/67; PULSE 81; RESP 16; TEMP 36.4
[2023-07-20 09:22] LABS: Hematocrit 29.7 % (37-53); Mean Corpuscular Hemoglobin 30.8 pg (27-33); Mean Corpuscular Volume 99.3 fl (82-101); Red Blood Count 2.99 10^6/uL (3.85-5.65); Red Cell Distribution Width 19.9 % (12.1-15.1); White Blood Count 19.82 10^3/uL (3.29-11.43)
[2023-07-20 10:09] LABS: Platelet Count 7 10^3/cmm (157-399); Slide Review Slide Review Perform
[2023-07-20 10:10] LABS: Absolute Eosinophils 0.2 10^3/cmm (0.0-0.7); Absolute Neutrophil 10.1 10^3/cmm (1.4-6.5); Absolute Segmented Neutrophil 8.7 10/cmm (1.6-7.1); Band Neutrophils Absolute 1.4 10^3/cmm (0.0-1.2); Blastocytes 1 % (0-0); Eosinophils 1 %; Lymphocytes 16 %; Lymphocytes Absolute 3.8 10^3/cmm (1.2-3.4); Monocytes Absolute 1.4 10^3/cmm (0.1-0.6); Platelet Estimate Decreased (Normal); Segmented Neutrophils 44 %; Total Cells Counted 100 (0-100)
[2023-07-20] MEDS: diphenhydrAMINE 25 mg Capsule PO (15:27)
[2023-07-20] MEDS: acetaminophen 325 mg Tablet 650 MG PO (15:27)
[2023-07-20 15:53] VITALS: BP 108/59; PULSE 77; RESP 17; TEMP 35.9; O2SAT 97
[2023-07-20 16:05] VITALS: BP 116/64; PULSE 77; RESP 17; TEMP 36.4; O2SAT 99
[2023-07-20 16:28] VITALS: BP 119/64; PULSE 78; RESP 18; TEMP 36.4; O2SAT 95
[2023-07-20 16:36] VITALS: BP 135/68; PULSE 78; RESP 17; TEMP 36.4; O2SAT 98
[2023-07-20] MEDS: flu vacc pf 2023-24 (6 mos+) 60 MCG IM (17:04)
[2023-07-20 17:15] VITALS: BP 135/68; PULSE 78; RESP 17; TEMP 36.5; O2SAT 98
[2023-07-27] VITALS (7 sets, daily range): BP systolic 102–115; BP diastolic 49–66; PULSE 75–96; RESP 16–18; TEMP 36.6; O2SAT 97–99
[2023-07-27 08:40] LABS: Hematocrit 28.7 % (37-53); Mean Corpuscular HGB Conc 30.7 g/dL (30-55); Mean Corpuscular Hemoglobin 30.9 pg (27-33); Mean Corpuscular Volume 100.7 fl (82-101); Red Blood Count 2.85 10^6/uL (3.85-5.65); Red Cell Distribution Width 19.8 % (12.1-15.1); White Blood Count 16.63 10^3/uL (3.29-11.43)
[2023-07-27 09:36] LABS: Slide Review Slide Review Perform
[2023-07-27 09:38] LABS: Platelet Count 6 10^3/cmm (157-399)
[2023-07-27 09:43] LABS: Absolute Segmented Neutrophil 9.8 10/cmm (1.6-7.1); Band Neutrophils Absolute 2.2 10^3/cmm (0.0-1.2); Corrected White Blood Count 15.8 10^3/cmm (4.8-10.8); Eosinophils 0 %; Lymphocytes 15 %; Lymphocytes Absolute 2.7 10^3/cmm (1.2-3.4); Segmented Neutrophils 59 %; Total Cells Counted 100 (0-100)
[2023-07-27 09:44] LABS: Anisocytosis 2+; Macrocytosis 1+; Microcytosis Trace; Poikilocytosis 1+
[2023-07-27 09:45] LABS: Platelet Estimate Decreased (Normal); Smudge Cells 1+
[2023-07-27 09:58] LABS: Alanine Aminotransferase 13 U/L (0-41); Albumin Level 4.1 g/dL (3.5-5.2); Alkaline Phosphatase 105 U/L (40-130); Anion Gap 14.8 (5-19); Aspartate Amino Transferase 20 U/L (0-40); Blood Urea Nitrogen 19 mg/dL (8-23); Calcium 9.2 mg/dL (8.5-10.5); Carbon Dioxide 26 mmol/L (22-29); Chloride 96 mmol/L (98-107); Globulin 3.1 g/dL (1.3-4.6); Glucose 299 mg/dL (65-115); Lactate Dehydrogenase 682 U/L (135-225); Osmolality Calculated 287 mOsm/kg (285-295); Potassium 4.8 mmol/L (3.5-5.1); Sodium 132 mmol/L (136-145); Total Bilirubin 0.6 mg/dL (0.15-1.2); Total Protein 7.2 g/dL (6.6-8.7)
[2023-07-27] MEDS: diphenhydrAMINE 25 mg Capsule PO (13:41)
[2023-07-27] MEDS: acetaminophen 325 mg Tablet 650 MG PO (13:41)
[2023-07-29 11:54] LABS: Erythropoietin 19.9 mIU/mL (2.6-18.5)
[2023-07-31 08:16] VITALS: BP 124/71; PULSE 87; RESP 17; TEMP 36.6; O2SAT 99
[2023-07-31] MEDS: diphenhydrAMINE 25 mg Capsule PO (08:36)
[2023-07-31] MEDS: acetaminophen 325 mg Tablet 650 MG PO (08:36)
[2023-07-31 09:45] LABS: Hematocrit 25.8 % (37-53); Mean Corpuscular HGB Conc 31.4 g/dL (30-55); Mean Corpuscular Hemoglobin 30.9 pg (27-33); Mean Corpuscular Volume 98.5 fl (82-101); Red Blood Count 2.62 10^6/uL (3.85-5.65); Red Cell Distribution Width 19.6 % (12.1-15.1)
[2023-07-31 09:53] LABS: Platelet Count 8 10^3/cmm (157-399)
[2023-07-31 10:04] LABS: Absolute Eosinophils 0.3 10^3/cmm (0.0-0.7); Absolute Segmented Neutrophil 7.5 10/cmm (1.6-7.1); Band Neutrophils Absolute 1.2 10^3/cmm (0.0-1.2); Eosinophils 2 %; Lymphocytes 21 %; Segmented Neutrophils 49 %; Slide Review Slide Review Perform; Total Cells Counted 100 (0-100)
[2023-07-31 10:05] LABS: Absolute Neutrophil 8.8 10^3/cmm (1.4-6.5); Corrected White Blood Count 13.2 10^3/cmm (4.8-10.8); Lymphocytes Absolute 4.5 10^3/cmm (1.2-3.4); Platelet Estimate Decreased (Normal)
[2023-07-31 10:06] LABS: Blastocytes 1 % (0-0)
[2023-07-31 10:42] VITALS: BP 109/65; PULSE 77; RESP 17; TEMP 36.6; O2SAT 99
[2023-07-31 10:53] VITALS: BP 125/62; PULSE 74; RESP 18; TEMP 36.2; O2SAT 99
[2023-07-31 11:00] VITALS: BP 125/62; PULSE 74; RESP 18; TEMP 36.2; O2SAT 99
--- NOTE | 2023-08-03 16:59 | PC.NURSE ---
1600 5Critical PLT 9 results reported to Jose Daniel Alford [employer]. Pt to receive 1 unit PLT 08/04/23 @ 0900
[2023-08-04 09:24] VITALS: BP 104/60; PULSE 80; RESP 17; TEMP 36.1; O2SAT 98
[2023-08-04] MEDS: diphenhydrAMINE 25 mg Capsule PO (09:27)
[2023-08-04] MEDS: acetaminophen 325 mg Tablet 650 MG PO (09:27)
[2023-08-04 09:52] VITALS: BP 117/67; PULSE 74; RESP 17; TEMP 36.6; O2SAT 97
[2023-08-04 10:04] VITALS: BP 128/71; PULSE 74; RESP 18; TEMP 36.6; O2SAT 99
[2023-08-04 10:15] VITALS: BP 128/71; PULSE 74; RESP 18; TEMP 36.6; O2SAT 99
== END 2023-08-04 23:59 | disposition home or self-care (01) ==
PROVIDERS: Internal Medicine Medical Oncology; PCP Family Medicine; Visit Provider Internal Medicine Medical Oncology
DX: D69.6 Thrombocytopenia, unspecified (principal)
CPT/HCPCS: 36430; 80053; 82668; 83615; 85007; 85025; 86850; 86900; 90471; 90686; 99214; P9016; P9035; P9037

== ENCOUNTER → 2023-08-06 08:58 | Outpatient (BNVA) | payer MEDICARE, SELFPAY | PROVIDERS: PCP Family Medicine; Visit Provider Internal Medicine Medical Oncology | DX: D64.9 Anemia, unspecified (principal); D72.829 Elevated white blood cell count, unspecified | CPT/HCPCS: 85007; 85025 ==

== ENCOUNTER → 2023-08-10 08:39 | Outpatient (BNVA) | payer MEDICARE, SELFPAY | PROVIDERS: PCP Family Medicine; Visit Provider Internal Medicine Medical Oncology | DX: D64.9 Anemia, unspecified (principal) | CPT/HCPCS: 85007; 85025 ==

== ENCOUNTER 2023-08-11 09:00 | Oncology outpatient (recurring) (ONCR) | payer MEDICARE, SELFPAY ==
[2023-08-07] MEDS: acetaminophen 325 mg Tablet 650 MG PO (08:08)
[2023-08-07] MEDS: diphenhydrAMINE 25 mg Capsule PO (08:09)
[2023-08-07 09:22] VITALS: BP 103/59; PULSE 73; RESP 18; TEMP 36.1; O2SAT 99
[2023-08-07 09:33] VITALS: BP 118/64; PULSE 68; RESP 17; TEMP 35.8; O2SAT 99
[2023-08-07 09:45] VITALS: BP 118/64; PULSE 68; RESP 17; TEMP 35.8; O2SAT 99
[2023-08-11] MEDS: acetaminophen 325 mg Tablet 650 MG PO (09:57)
[2023-08-11] MEDS: diphenhydrAMINE 25 mg Capsule PO (09:59)
[2023-08-11 10:01] VITALS: BP 120/78; PULSE 74; RESP 18; TEMP 36.4; O2SAT 99
[2023-08-11 10:17] VITALS: BP 127/70; PULSE 70; RESP 17; TEMP 36.8; O2SAT 98
== END 2023-08-11 23:59 | disposition home or self-care (01) ==
PROVIDERS: PCP Family Medicine; Visit Provider Internal Medicine Medical Oncology
DX: D69.6 Thrombocytopenia, unspecified (principal)
CPT/HCPCS: 36430; 86900; P9016; P9035

== ENCOUNTER → 2023-08-13 08:39 | Outpatient (BNVA) | payer MEDICARE, SELFPAY | PROVIDERS: PCP Family Medicine; Visit Provider Internal Medicine Medical Oncology | DX: D64.9 Anemia, unspecified (principal); D72.829 Elevated white blood cell count, unspecified; D47.1 Chronic myeloproliferative disease | CPT/HCPCS: 85025; 86850; 86900 ==

== ENCOUNTER → 2023-08-20 09:33 | Outpatient (BNVA) | payer MEDICARE, SELFPAY | PROVIDERS: PCP Family Medicine; Visit Provider Internal Medicine Medical Oncology | DX: D64.9 Anemia, unspecified (principal) | CPT/HCPCS: 85025; 86850; 86900 ==

== ENCOUNTER → 2023-08-24 09:14 | Outpatient (BNVA) | payer MEDICARE, SELFPAY | PROVIDERS: PCP Family Medicine; Visit Provider Internal Medicine Medical Oncology | DX: D64.9 Anemia, unspecified (principal); D69.6 Thrombocytopenia, unspecified | CPT/HCPCS: 85007; 85025 ==

== ENCOUNTER → 2023-08-27 08:53 | Outpatient (BNVA) | payer MEDICARE, SELFPAY | PROVIDERS: PCP Family Medicine; Visit Provider Internal Medicine Medical Oncology | DX: D72.829 Elevated white blood cell count, unspecified (principal); D64.9 Anemia, unspecified | CPT/HCPCS: 85025 ==

== ENCOUNTER → 2023-08-31 10:00 | Outpatient (BNVA) | payer MEDICARE, SELFPAY | PROVIDERS: PCP Family Medicine; Visit Provider Internal Medicine Medical Oncology | DX: D64.9 Anemia, unspecified (principal) | CPT/HCPCS: 85007; 85025 ==

== ENCOUNTER → 2023-09-07 10:17 | Outpatient (BNVA) | payer MEDICARE, SELFPAY | PROVIDERS: PCP Family Medicine; Visit Provider Internal Medicine Medical Oncology | DX: D64.9 Anemia, unspecified (principal); D69.6 Thrombocytopenia, unspecified | CPT/HCPCS: 80053; 83615; 85007; 85025 ==

== ENCOUNTER 2023-09-10 10:45 | Oncology outpatient (recurring) (ONCR) | payer MEDICARE, SELFPAY ==
[2023-08-14 09:30] VITALS: BP 115/58; PULSE 72; RESP 17; TEMP 36.4; O2SAT 99
[2023-08-14] MEDS: acetaminophen 325 mg Tablet 650 MG PO (10:10)
[2023-08-14] MEDS: diphenhydrAMINE 25 mg Capsule PO (10:10)
[2023-08-14 11:01] VITALS: BP 129/71; PULSE 65; RESP 18; TEMP 36.2; O2SAT 97
[2023-08-14 11:16] VITALS: BP 152/75; PULSE 66; RESP 17; TEMP 36.4; O2SAT 99
[2023-08-14 11:20] VITALS: BP 148/75; PULSE 64; RESP 17; TEMP 36.4; O2SAT 98
[2023-08-14 11:30] VITALS: BP 148/75; PULSE 64; RESP 17; TEMP 36.4; O2SAT 98
[2023-08-17 16:02] LABS: Hematocrit 29.2 % (37-53); Mean Corpuscular HGB Conc 30.8 g/dL (30-55); Mean Corpuscular Hemoglobin 30.8 pg (27-33); Red Blood Count 2.92 10^6/uL (3.85-5.65); Red Cell Distribution Width 19.6 % (12.1-15.1); White Blood Count 20.71 10^3/uL (3.29-11.43)
[2023-08-17 16:05] LABS: Platelet Count 13 10^3/cmm (157-399); Slide Review Slide Review Perform
[2023-08-17 16:10] LABS: Absolute Segmented Neutrophil 9.7 10/cmm (1.6-7.1); Band Neutrophils Absolute 2.3 10^3/cmm (0.0-1.2); Corrected White Blood Count 19.4 10^3/cmm (4.8-10.8); Eosinophils 0 %; Lymphocytes 22 %; Monocytes Absolute 0.8 10^3/cmm (0.1-0.6); Segmented Neutrophils 47 %; Total Cells Counted 100 (0-100)
[2023-08-17 16:11] LABS: Blastocytes 1 % (0-0)
[2023-08-17 16:12] LABS: Anisocytosis Trace; Platelet Estimate Decreased (Normal)
[2023-08-18] MEDS: acetaminophen 325 mg Tablet 650 MG PO ×2 (09:17→09:18)
[2023-08-18] MEDS: diphenhydrAMINE 25 mg Capsule PO (09:19)
[2023-08-18 09:20] VITALS: BP 107/67; PULSE 85; RESP 18; TEMP 37.1; O2SAT 99
[2023-08-18 09:35] VITALS: BP 87/48; PULSE 89; RESP 18; TEMP 37.1; O2SAT 98
[2023-08-18 10:00] VITALS: BP 90/52; PULSE 90; RESP 18; TEMP 37.2; O2SAT 97
[2023-08-21 08:05] VITALS: BP 156/66; PULSE 73; RESP 16; TEMP 36.6; O2SAT 97
[2023-08-21] MEDS: acetaminophen 325 mg Tablet 650 MG PO (08:13)
[2023-08-21] MEDS: diphenhydrAMINE 25 mg Capsule PO (08:14)
[2023-08-21 08:40] VITALS: BP 128/60; PULSE 71; RESP 16; TEMP 36.3; O2SAT 97
[2023-08-21 08:55] VITALS: BP 131/63; PULSE 75; RESP 16; TEMP 36.3; O2SAT 97
[2023-08-21 09:05] VITALS: BP 117/60; PULSE 74; RESP 16; TEMP 36.4; O2SAT 92
[2023-08-21 09:10] VITALS: BP 117/60; PULSE 74; RESP 16; TEMP 36.4; O2SAT 92
[2023-08-21 09:50] VITALS: BP 116/58; PULSE 77; RESP 18; TEMP 36.6; O2SAT 99
[2023-08-25 08:54] VITALS: BP 141/67; PULSE 75; RESP 18; TEMP 37.1; O2SAT 97
[2023-08-25] MEDS: diphenhydrAMINE 25 mg Capsule PO (09:18)
[2023-08-25 10:30] VITALS: BP 122/78; PULSE 78; RESP 18; TEMP 36.6; O2SAT 98
[2023-08-28] MEDS: diphenhydrAMINE 25 mg Capsule PO (07:52)
[2023-08-28 07:58] VITALS: BP 128/66; PULSE 72; RESP 18; TEMP 36.2; O2SAT 99
[2023-08-28 08:27] VITALS: BP 109/64; PULSE 71; RESP 17; TEMP 36.5; O2SAT 98
[2023-08-28 08:42] VITALS: BP 135/73; PULSE 70; RESP 18; TEMP 36.5; O2SAT 98
[2023-08-28 08:51] VITALS: BP 135/73; PULSE 70; RESP 18; TEMP 36.6; O2SAT 98
[2023-09-01] MEDS: diphenhydrAMINE 25 mg Capsule PO ×2 (09:01→10:45)
[2023-09-01 09:58] VITALS: BP 149/74; PULSE 73; RESP 18; TEMP 36.3; O2SAT 99
[2023-09-01] MEDS: acetaminophen 325 mg Tablet 650 MG PO (10:04)
[2023-09-01 10:35] VITALS: BP 134/75; PULSE 74; RESP 16; TEMP 36.3; O2SAT 99
[2023-09-01 11:09] VITALS: BP 130/65; PULSE 69; RESP 99; TEMP 36.3; O2SAT 99
[2023-09-01 11:40] VITALS: BP 160/83; PULSE 71; RESP 18; TEMP 36.6; O2SAT 98
[2023-09-01 12:25] VITALS: BP 130/69; PULSE 67; RESP 18; TEMP 36.2; O2SAT 99
[2023-09-08] MEDS: diphenhydrAMINE 25 mg Capsule PO (11:04)
[2023-09-08 11:24] VITALS: BP 132/75; PULSE 67; RESP 18; TEMP 36.3; O2SAT 99
[2023-09-10 10:15] VITALS: BP 120/78; PULSE 78; RESP 18; TEMP 36.6; O2SAT 97
[2023-09-10 10:28] LABS: Hematocrit 28.1 % (37-53); Mean Corpuscular HGB Conc 31.3 g/dL (30-55); Mean Corpuscular Hemoglobin 30.7 pg (27-33); Mean Corpuscular Volume 97.9 fl (82-101); Red Blood Count 2.87 10^6/uL (3.85-5.65); Red Cell Distribution Width 19.5 % (12.1-15.1); White Blood Count 23.23 10^3/uL (3.29-11.43)
[2023-09-10 10:47] LABS: Alanine Aminotransferase 15 U/L (0-41); Albumin Level 4.2 g/dL (3.5-5.2); Alkaline Phosphatase 98 U/L (40-130); Anion Gap 14.1 (5-19); Aspartate Amino Transferase 20 U/L (0-40); Blood Urea Nitrogen 15 mg/dL (8-23); Calcium 8.6 mg/dL (8.5-10.5); Carbon Dioxide 23 mmol/L (22-29); Chloride 101 mmol/L (98-107); Globulin 2.8 g/dL (1.3-4.6); Glucose 193 mg/dL (65-115); Osmolality Calculated 284 mOsm/kg (285-295); Potassium 4.1 mmol/L (3.5-5.1); Sodium 134 mmol/L (136-145); Total Bilirubin 0.6 mg/dL (0.15-1.2)
[2023-09-10 10:54] LABS: Platelet Count 13 10^3/cmm (157-399)
[2023-09-10 10:57] LABS: Slide Review Slide Review Perform; Total Cells Counted 100 (0-100)
[2023-09-10 11:04] LABS: Absolute Neutrophil 15.6 10^3/cmm (1.4-6.5); Absolute Segmented Neutrophil 14.6 10/cmm (1.6-7.1); Band Neutrophils Absolute 0.9 10^3/cmm (0.0-1.2); Eosinophils 0 %; Lymphocytes 9 %; Lymphocytes Absolute 2.8 10^3/cmm (1.2-3.4); Monocytes Absolute 0.5 10^3/cmm (0.1-0.6); Platelet Estimate Decreased (Normal); Segmented Neutrophils 63 %
[2023-09-10 11:05] LABS: Anisocytosis 2+; Macrocytosis 1+; Polychromasia 1+; Stomatocytes 1+
== END 2023-09-10 23:59 | disposition home or self-care (01) ==
PROVIDERS: PCP Family Medicine; Visit Provider Internal Medicine Medical Oncology
DX: D64.9 Anemia, unspecified (principal); D47.1 Chronic myeloproliferative disease
CPT/HCPCS: 36415; 36430; 80053; 85007; 85025; 86850; 86900; 99204; 99214; P9035; P9037; P9040; P9055

== ENCOUNTER → 2023-09-11 10:25 | Day surgery (SDC) | payer MEDICARE, SELFPAY ==
[2023-09-11] VITALS (8 sets, daily range): BP systolic 118–137; BP diastolic 58–70; PULSE 72–86; RESP 11–18; TEMP 36.2–36.9; O2SAT 96–99; BMI 25.3
--- NOTE | 2023-09-11 10:32 | SC_ITS ---
WS: [id number] C-ARM RADIOGRAPHS CHEST; IMAGES HISTORY: mediport COMPARISON: None available. Intraoperative imaging during LEFT Mediport placement. Distal catheter is difficult to visualize on t he imaging submitted. IMPRESSION: Intraoperative imaging during Mediport placement.
--- NOTE | 2023-09-11 10:32 | XR_ITS ---
WS: [id number] Portable AP upright chest, 09/11/2023 Clinical Data: postop mediport Comparison: Two-view chest, 03/12/2017 Findings: No nodules, masses or effusions are seen. The diaphragms are flattened. The heart is not en larged. No pneumonia or pneumothorax is seen. The infusion port entering from the left ends in the mi d superior vena cava. There are midline sternotomy sutures. The aortic arch and descending thoracic a ben show mild calcification and tortuosity. There are orthopedic anchors in the right humeral head. Impression: 1. Satisfactory insertion of infusion catheter. 2. Hyperinflation and atherosclerosis.
--- NOTE | 2023-09-11 10:54 | ANES.PREANE2 ---
Pre-Anesthetic Assessment Height/Weight: Height 1.63 m Operation Date: 09/11/23 12:00 Proposed Procedures p 70609 port placement, Z95.828, D47.1(Not Applicable) - Alberto Morris DO Familial anesthetic complications: None Was Beta Oracio taken within 24 hours: N/A Was Clonidine taken within 24 hours: N/A Last intake: > 8 hrs Social No alcohol and No tobacco Exam alert, oriented x 3, clear to auscultation bilaterally and regular rate & rhythm Airway Mallampati: Class III Dentition: full CV/HEM Hypertension myelfofiboris - platelet infusion pre op GI Gastroesophageal Reflux Disease Anesthetic Plan ASA status: 4 Anesthesia: MAC Risk of > 500 ml blood loss (7ml/kg in children): No Medications/Allergies Home Medications Medication Instructions Recorded Confirmed Last Taken Type diclofenac sodium 1 % topical gel 4 gm topical QID 05/08/20 09/10/23 09/10/23 History (Voltaren) finasteride 5 mg tablet (Proscar) 5 mg PO DAILY 05/08/20 09/10/23 08/27/23 History furosemide 40 mg tablet 40 mg PO DAILY 05/08/20 09/10/23 08/27/23 History magnesium 200 mg tablet 200 mg PO DAILY 05/08/20 09/10/23 08/27/23 History potassium gluconate 595 mg (99 mg) 99 mg PO DAILY 05/08/20 09/10/23 08/27/23 History tablet,extended release cetirizine 10 mg capsule (All Day 10 mg PO DAILY PRN Allergy Symptoms 02/02/23 09/10/23 08/27/23 History Allergy (cetirizine)) cinnamon bark 500 mg capsule 500 mg PO BID 02/02/23 09/10/23 08/27/23 History (Cinnamon) doxazosin 4 mg tablet (Cardura) 4 mg PO DAILY 02/06/23 09/10/23 08/27/23 History omeprazole 10 mg capsule,delayed 10 mg PO DAILY 02/06/23 09/10/23 08/27/23 History release cholecalciferol (vitamin D3) 50 50 mcg PO DAILY 03/11/23 09/10/23 08/27/23 History mcg (2,000 unit) capsule ascorbic acid (vitamin C) 500 mg 500 mg PO DAILY 08/09/10/23 08/27/23 History capsule cyanocobalamin (vitamin B-12) 1,000 mcg PO DAILY 06/01/23 09/10/23 08/27/23 History 1,000 mcg capsule food supplemt, lactose-reduced 1 ea PO TID 06/09/23 09/10/23 08/27/23 History (Ensure oral liquid) Allergies Allergy/AdvReac Type Severity Reaction Status Date / Time No Known Allergies Allergy Verified 09/10/23 10:42 [facility] Anesthesia Medical History Peripheral arterial disease Coronary artery disease Hyperlipidemia GERD (gastroesophageal reflux disease) Type 2 diabetes mellitus Hypertension History of carotid artery disease Primary myelofibrosis Surgical History Hx of repair of rotator cuff History of back surgery History of coronary artery bypass surgery (2012) History of right-sided carotid endarterectomy (2016) Family History Father CAD (coronary artery disease) Brother Cancer Mother Cancer Denies family history of Diabetes Clotting disorder Dementia Hyperlipidemia Psychiatric illness Chronic kidney disease (CKD) Suicide Anesthesia complication Bleeding disorder Family history of premature coronary artery disease Lung disease Hypertension Stroke Social History Smoking and tobacco/nicotine status: current every day tobacco/nicotine user cigarettes Packs smoked per day: 1.5 Years cigarettes smoked: 64 Alcohol intake: current Alcohol intake frequency: holidays/special occasions only Data Anesthesia Cardiac Studies: Echocardiogram 03/27/23
[2023-09-11] MEDS: sodium chloride 0.9% 1,000 ML 30 ML IV (12:00)
--- NOTE | 2023-09-11 12:17 | W.PM.OPSUD ---
Surgery/Procedure H&P Update DATE OF PROCEDURE: September 11, 2023 DATE H&P PERFORMED: 09/10/23 H&P UPDATE INFORMATION: I have reviewed H&P completed within last 30 days, I have examined patient prior to procedure and No changes to prior documentation PLANNED PROCEDURE: Operation Date: 09/11/23 12:00 Proposed Procedures p [id number] port placement, Z95.828, D47.1(Not Applicable) - Alberto Morris DO
[2023-09-11] MEDS: ceFAZolin 2,000 MG in sodium chloride 0.9% (plus) 50 ML 100 MG IV (12:30)
[2023-09-11] MEDS: lidocaine-epi 2% 20 mL INJ INJECTION (12:41)
[2023-09-11] MEDS: heparin, porcine 1,000 unit/mL INJ 10 mL 10000 UNIT INJECTION (12:50)
--- NOTE | 2023-09-11 13:00 | P.OP_ITS ---
Operative Report Date of procedure: September 11, 2023 Pre-op diagnosis: Myelofibrosis Post-op diagnosis: same Procedure done: Mediport placement Implants: PowerPort Specimens removed/disposition: None Surgeon: Alberto Morris DO Anesthesia: MAC and Local Estimated blood loss (mL): 5 Complications: None apparent Brief History: This is a very pleasant 78-year-old gentleman who presented to my office with myelofibrosis. He requires frequent transfusions. Mediport placement was requested. The risk benefits were explained and documented. Prior to surgery he received 2 pools of platelets. Procedure: They put another order I will do right now things the patient was taken to the operating room and placed supine on the operating room table. All bony prominences were padded. She was given IV sedation and monitored throughout the case by the anesthesia personnel. SCDs were placed and turned on. The arms were tucked to the side. Patient received Ancef 2 g preoperatively IV. The bilateral chest wall was prepped and draped in usual sterile fashion using chlorhexidine base prep. Sterile drapes were applied. We did procedure pause prior to beginning. An 18 gauge needle was placed in the left subclavian vein. Dark, nonpulsatile blood was aspirated. A guidewire was placed through the needle centrally toward the atrial/vena caval junction. Fluoroscopy visualized good placement. The needle was removed and the guidewire was clipped to the drape with a hemostat. Further local anesthetic was infiltrated in the soft tissues of the left chest wall and a #15 blade was used to make a horizontal skin incision. A subcutaneous Mediport pocket was created using Bovie cautery, dissecting down through the skin and subcutaneous tissues. Meticulous hemostasis was achieved. The Mediport was sutured in position using 3-0 vicryl suture x2 stitches. A #15 blade was used to make a small skin jaja around the guidewire insertion area. The Mediport tubing was tunneled through the subcutaneous tissues up to the needle insertion location. A dilator with a peel-away sheath was placed over the guidewire and placed centrally. After measuring the Mediport tubing was cut to length so that the tip would end at the atrial/vena caval junction. The inner cannula and the guidewire were removed, leaving the dilator sheath in place. The Mediport was flushed. The tip of the catheter was inserted through the peel-away sheath and the peel-away sheath removed in the standard fashion. The Mediport was accessed with a straight Faith needle and dark, nonpulsatile blood was aspirated and flushed using heparinized saline to hep-lock the Mediport. Final fluoroscopy visual ization showed no kink in the catheter and the tip of the Mediport tubing near the atrial/vena caval junction. Both skin incisions were thoroughly irrigated and suctioned dry. Meticulous hemostasis noted. The dermis was approximated with 3-0 Vicryl in an interrupted fashion. Skin was closed with Dermabond. Patient was awakened from anesthesia and transferred via her cart to the recovery room in stable condition. All needle, sponge, and instrument counts were correct per the operating personnel x2 counts.
--- NOTE | 2023-09-11 13:39 | ANE.PACU2 ---
Inpatient post-anesthesia follow up: Airway intact: Yes Vital signs: Temperature 97.2 F Pulse Rate 72 Respiratory Rate 16 Blood Pressure 134/59 Pulse Oximetry 99 Oxygen Delivery Me thod Room Air Oxygen Flow Rate Fraction of Inspir ed Oxygen Hydration adequate: Yes Nausea and vomiting: No Pain level: 1 Mental status: Baseline
== END | disposition home or self-care (01) ==
PROVIDERS: PCP Family Medicine; Visit Provider Surgery
PROC: (CPT 36561; principal; 2023-09-11 12:00)
DX: D75.81 Myelofibrosis (principal); I10 Essential (primary) hypertension; K21.9 Gastro-esophageal reflux disease without esophagitis; I25.10 Atherosclerotic heart disease of native coronary artery without angina pectoris; E78.5 Hyperlipidemia, unspecified; E11.9 Type 2 diabetes mellitus without complications; F17.210 Nicotine dependence, cigarettes, uncomplicated
CPT/HCPCS: 36561; 36430; 71045; 77001; 86850; 86900; C1788; J0690; J1644; J3010; J7030; P9016; P9035

== ENCOUNTER → 2023-09-14 10:10 | Outpatient (BNVA) | payer MEDICARE, SELFPAY | PROVIDERS: PCP Family Medicine; Visit Provider Internal Medicine Medical Oncology | DX: D69.6 Thrombocytopenia, unspecified (principal) | CPT/HCPCS: 85007; 85025 ==

== ENCOUNTER → 2023-09-24 09:09 | Outpatient (BNVA) | payer MEDICARE, SELFPAY | PROVIDERS: PCP Family Medicine; Visit Provider Nurse Practitioner Family | DX: D69.6 Thrombocytopenia, unspecified (principal); D64.9 Anemia, unspecified; D47.1 Chronic myeloproliferative disease | CPT/HCPCS: 80053; 85025 ==

== ENCOUNTER → 2023-09-28 09:48 | Outpatient (BNVA) | payer MEDICARE, SELFPAY | PROVIDERS: PCP Family Medicine; Visit Provider Nurse Practitioner Family | DX: D69.6 Thrombocytopenia, unspecified (principal); D64.9 Anemia, unspecified; D47.1 Chronic myeloproliferative disease; Z01.89 Encounter for other specified special examinations; I25.10 Atherosclerotic heart disease of native coronary artery without angina pectoris; D72.829 Elevated white blood cell count, unspecified | CPT/HCPCS: 80053; 85007; 85025 ==

== ENCOUNTER → 2023-10-01 09:53 | Outpatient (BNVA) | payer MEDICARE, SELFPAY | PROVIDERS: PCP Family Medicine; Visit Provider Nurse Practitioner Family | DX: D69.6 Thrombocytopenia, unspecified (principal); D64.9 Anemia, unspecified; D72.829 Elevated white blood cell count, unspecified; I25.10 Atherosclerotic heart disease of native coronary artery without angina pectoris; N28.89 Other specified disorders of kidney and ureter; Z01.89 Encounter for other specified special examinations | CPT/HCPCS: 80053; 85025 ==

== ENCOUNTER 2023-10-02 08:00 | Oncology outpatient (recurring) (ONCR) | payer MEDICARE, SELFPAY ==
[2023-09-11] MEDS: diphenhydrAMINE 25 mg Capsule PO (09:37)
[2023-09-11 10:57] VITALS: BP 128/68; PULSE 74; RESP 18; TEMP 36.9; O2SAT 99
[2023-09-11 11:10] VITALS: BP 135/62; PULSE 69; RESP 18; TEMP 36.5; O2SAT 97
[2023-09-11 11:22] VITALS: BP 127/66; PULSE 69; RESP 18; TEMP 36.6; O2SAT 98
[2023-09-11 11:27] VITALS: BP 133/65; PULSE 65; RESP 18; TEMP 36.6
[2023-09-11 11:39] VITALS: BP 128/66; PULSE 74; RESP 18; TEMP 36.6; O2SAT 99
[2023-09-15 08:19] VITALS: BP 117/71; PULSE 71; RESP 18; TEMP 37; O2SAT 99
[2023-09-15] MEDS: diphenhydrAMINE 25 mg Capsule PO (08:44)
[2023-09-15] MEDS: acetaminophen 325 mg Tablet 650 MG PO (08:44)
[2023-09-15] MEDS: sodium chloride 0.9% 100 mL Bag 50 ML IV (08:45)
[2023-09-15 09:09] VITALS: BP 110/59; PULSE 73; RESP 18; TEMP 37; O2SAT 99
[2023-09-15 10:17] VITALS: RESP 26; O2SAT 84
[2023-09-15] MEDS: meperidine 50 mg/mL INJ 25 MG IVP (10:17)
[2023-09-15] MEDS: ondansetron 2 mg/ML SDV 2 mL 4 MG IVP (11:53)
[2023-09-15 12:23] VITALS: BP 110/74; PULSE 100; RESP 20; TEMP 36.8; O2SAT 94
--- NOTE | 2023-09-15 17:12 | PC.NURSE ---
09/15/23: -Mr. Rivera vital signs were 134/84, 84% O2 on 2L, and HR 103. -Oxygen increased to 4L and Solumedrol 60mg IVP given. -VS: 142/86, 88% 4L, 134 HR. -Demerol 25mg IVP given, oxygen increased to 6L. -VS: 142/76, HR 110, O2 sat 95% on 5L, 100.2 temp. -Vomiting --> Zofran 4mg IVP given. -BP 130/76 and O2 stat 94% on 2L O2 via NC. -Patient was monitored by nursing then discharged once stabilized. -Will now need Solu-Medrol 100mg IVP prior to platelet infusions per Dr. Lowe. -Will return tomorrow for blood transfusion.
--- NOTE | 2023-09-15 17:13 | PC.NURSE ---
Patient was here for the platelet pheresis with the new port a cath access used obtaining good blood return and the platelets were infused with no concerns until shortly after platelets were infused he complained of the back uncomfortable and then shortness of breath with oxygen applied,
[2023-09-16] VITALS (11 sets, daily range): BP systolic 98–128; BP diastolic 57–78; PULSE 60–76; RESP 16–18; TEMP 36.4–37.6; O2SAT 98–99
[2023-09-16] MEDS: acetaminophen 325 mg Tablet 650 MG PO (08:27)
[2023-09-16] MEDS: diphenhydrAMINE 25 mg Capsule PO (08:28)
[2023-09-16] MEDS: sodium chloride 0.9% (100 ml) 100 ML 75 ML (09:00)
[2023-09-16 10:48] LABS: Basophils # 0.1 10^3/uL (0.0-0.1); Basophils % 0.5 %; Eosinophils % 0.2 %; Hematocrit 21.5 % (37-53); Mean Corpuscular HGB Conc 31.6 g/dL (30-55); Mean Corpuscular Hemoglobin 30.6 pg (27-33); Mean Corpuscular Volume 96.8 fl (82-101); Monocytes # 1.2 10^3/uL (0.2-0.9); Monocytes % 6.1 %; Neutrophils # 15.39 10^3/uL (1.8-7.7); Nucleated Red Blood Cells # 1.3 /100WBC; Nucleated Red Blood Cells % 6.5 %; Red Blood Count 2.22 10^6/uL (3.85-5.65); Red Cell Distribution Width 19.4 % (12.1-15.1); White Blood Count 19.25 10^3/uL (3.29-11.43)
[2023-09-16 10:49] LABS: Platelet Count 7 10^3/cmm (157-399)
[2023-09-16 10:51] LABS: Slide Review Slide Review Perform
[2023-09-21 11:37] VITALS: BP 134/68; PULSE 68; RESP 18; TEMP 37.3; O2SAT 98
[2023-09-21 12:00] LABS: Hematocrit 32.3 % (37-53); Mean Corpuscular HGB Conc 31.6 g/dL (30-55); Mean Corpuscular Hemoglobin 29.7 pg (27-33); Mean Corpuscular Volume 93.9 fl (82-101); Red Blood Count 3.44 10^6/uL (3.85-5.65); Red Cell Distribution Width 18.6 % (12.1-15.1); White Blood Count 18.18 10^3/uL (3.29-11.43)
[2023-09-21 12:54] LABS: Platelet Count 7 10^3/cmm (157-399)
[2023-09-21 12:55] LABS: Slide Review Slide Review Perform
[2023-09-21 12:56] LABS: Absolute Eosinophils 0.2 10^3/cmm (0.0-0.7); Absolute Segmented Neutrophil 8.7 10/cmm (1.6-7.1); Blastocytes 1 % (0-0); Eosinophils 1 %; Lymphocytes 23 %; Lymphocytes Absolute 4.2 10^3/cmm (1.2-3.4); Monocytes Absolute 0.4 10^3/cmm (0.1-0.6); Segmented Neutrophils 48 %; Total Cells Counted 100 (0-100)
[2023-09-21 12:57] LABS: Absolute Neutrophil 10.7 10^3/cmm (1.4-6.5); Anisocytosis 1+; Platelet Estimate Decreased (Normal); Poikilocytosis Trace
[2023-09-22] MEDS: acetaminophen 325 mg Tablet 650 MG PO (09:04)
[2023-09-22] MEDS: diphenhydrAMINE 50 mg/mL SDV 1mL 25 MG IVP (09:06)
[2023-09-22 09:08] VITALS: BP 130/77; PULSE 77; RESP 18; TEMP 36.7; O2SAT 97
[2023-09-22] MEDS: hydrocortisone 100 mg/2 mL SDV IVP (09:14)
[2023-09-22 10:23] VITALS: BP 120/70; PULSE 79; RESP 18; TEMP 36.3; O2SAT 99
[2023-09-22 11:06] VITALS: BP 116/68; PULSE 84; RESP 18; TEMP 36.1; O2SAT 97
[2023-09-22 11:30] VITALS: BP 118/69; PULSE 80; RESP 18; TEMP 36.6; O2SAT 96
[2023-09-25] MEDS: acetaminophen 325 mg Tablet 650 MG PO (08:23)
[2023-09-25] MEDS: diphenhydrAMINE 25 mg Capsule PO (08:23)
[2023-09-25] MEDS: hydrocortisone 100 mg/2 mL SDV IVP (08:27)
[2023-09-25 08:37] VITALS: BP 124/68; PULSE 74; O2SAT 99
[2023-09-25 09:01] VITALS: BP 124/68; PULSE 71; TEMP 36.6; O2SAT 99
[2023-09-25 09:29] VITALS: BP 136/73; PULSE 71; TEMP 36.5; O2SAT 98
[2023-09-29] MEDS: acetaminophen 325 mg Tablet 650 MG PO (10:02)
[2023-09-29] MEDS: diphenhydrAMINE 25 mg Capsule PO (10:03)
[2023-09-29] MEDS: hydrocortisone 100 mg/2 mL SDV IVP (10:03)
[2023-09-29 10:20] VITALS: BP 112/54; PULSE 82; RESP 18; TEMP 36.8; O2SAT 99
[2023-09-29 10:50] VITALS: BP 115/54; PULSE 78; RESP 18; TEMP 36.8; O2SAT 97
[2023-09-29 11:10] VITALS: BP 126/42; PULSE 74; RESP 18; TEMP 36.8; O2SAT 99
[2023-10-02 08:23] LABS: Hematocrit 29.1 % (37-53); Mean Corpuscular HGB Conc 31.6 g/dL (30-55); Mean Corpuscular Hemoglobin 30.2 pg (27-33); Mean Corpuscular Volume 95.4 fl (82-101); Red Blood Count 3.05 10^6/uL (3.85-5.65); Red Cell Distribution Width 18.6 % (12.1-15.1)
[2023-10-02 08:47] VITALS: BP 111/67; PULSE 76; RESP 17; TEMP 36.8
[2023-10-02 09:33] LABS: Slide Review Slide Review Perform
[2023-10-02 09:34] LABS: Platelet Count 12 10^3/cmm (157-399)
[2023-10-02 09:35] LABS: Absolute Eosinophils 0.2 10^3/cmm (0.0-0.7); Absolute Neutrophil 13.4 10^3/cmm (1.4-6.5); Absolute Segmented Neutrophil 10.6 10/cmm (1.6-7.1); Band Neutrophils Absolute 2.9 10^3/cmm (0.0-1.2); Eosinophils 1 %; Lymphocytes 10 %; Lymphocytes Absolute 2.1 10^3/cmm (1.2-3.4); Monocytes Absolute 0.4 10^3/cmm (0.1-0.6); Platelet Estimate Decreased (Normal); Segmented Neutrophils 59 %; Total Cells Counted 100 (0-100)
[2023-10-02] MEDS: diphenhydrAMINE 25 mg Capsule PO (09:55)
[2023-10-02] MEDS: acetaminophen 325 mg Tablet 650 MG PO (09:55)
[2023-10-02] MEDS: sodium chloride 0.9% (100 ml) 100 ML 75 ML (09:57)
[2023-10-02] MEDS: hydrocortisone 100 mg/2 mL SDV IVP (10:01)
[2023-10-02 10:44] VITALS: BP 126/74; PULSE 71; RESP 16; TEMP 36.9; O2SAT 98
[2023-10-02 11:00] VITALS: BP 126/60; PULSE 71; RESP 18; TEMP 36.7; O2SAT 98
[2023-10-02 11:15] VITALS: BP 126/60; PULSE 67; RESP 17; TEMP 36.7; O2SAT 98
== END 2023-10-02 23:59 | disposition home or self-care (01) ==
PROVIDERS: PCP Family Medicine; Visit Provider Internal Medicine Medical Oncology
DX: D69.6 Thrombocytopenia, unspecified (principal); Z53.9 Procedure and treatment not carried out, unspecified reason
CPT/HCPCS: 36415; 36430; 80503; 85007; 85025; 86850; 86900; 86920; 99213; 99214; J1200; J1642; J1720; J2175; J2405; P9016; P9035; P9040

== ENCOUNTER 2023-10-06 07:59 | Oncology outpatient (recurring) (ONCR) | payer MEDICARE, SELFPAY ==
[2023-10-06 10:49] VITALS: BP 129/67; PULSE 73; RESP 16; TEMP 36.6; O2SAT 99
[2023-10-06 11:16] LABS: Basophils # 0.5 10^3/uL (0.0-0.1); Basophils % 2.2 %; Eosinophils # 0.1 10^3/uL (0.0-0.8); Eosinophils % 0.4 %; Hematocrit 29.7 % (37-53); Lymphocytes # 2.8 10^3/uL (0.8-4.8); Lymphocytes % 11.5 %; Mean Corpuscular HGB Conc 32.3 g/dL (30-55); Mean Corpuscular Hemoglobin 30.4 pg (27-33); Monocytes # 1.6 10^3/uL (0.2-0.9); Monocytes % 6.6 %; Neutrophils # 13.43 10^3/uL (1.8-7.7); Nucleated Red Blood Cells # 0.7 /100WBC; Nucleated Red Blood Cells % 2.8 %; Red Blood Count 3.16 10^6/uL (3.85-5.65); Red Cell Distribution Width 18.9 % (12.1-15.1); White Blood Count 23.94 10^3/uL (3.29-11.43)
[2023-10-06 12:22] LABS: Platelet Count 5 10^3/cmm (157-399)
[2023-10-06 12:24] LABS: Slide Review Slide Review Perform
[2023-10-06] MEDS: acetaminophen 325 mg Tablet 650 MG PO (16:01)
[2023-10-06] MEDS: hydrocortisone 100 mg/2 mL SDV IVP (16:09)
[2023-10-06] MEDS: diphenhydrAMINE 50 mg/mL SDV 1mL 25 MG IVP (16:10)
[2023-10-06 16:14] VITALS: BP 120/58; PULSE 87; RESP 18; TEMP 36.6
[2023-10-06 16:42] VITALS: BP 125/60; PULSE 89; RESP 18; TEMP 36.9; O2SAT 98
[2023-10-06 17:03] VITALS: BP 124/64; PULSE 82; RESP 18; TEMP 36.6; O2SAT 98
[2023-10-06 17:10] VITALS: BP 128/62; PULSE 83; RESP 18; TEMP 36.7; O2SAT 98
== END 2023-10-11 23:59 | disposition home or self-care (01) ==
PROVIDERS: PCP Family Medicine; Visit Provider Internal Medicine Medical Oncology
DX: D69.6 Thrombocytopenia, unspecified (principal)
CPT/HCPCS: 36430; 85025; 86900; J1200; J1720; P9035; P9040; P9055

== ENCOUNTER → 2023-10-08 09:25 | Outpatient (BNVA) | payer MEDICARE, SELFPAY | PROVIDERS: PCP Family Medicine; Visit Provider Nurse Practitioner Family | DX: D69.6 Thrombocytopenia, unspecified (principal); Z95.828 Presence of other vascular implants and grafts | CPT/HCPCS: 85025 ==

== ENCOUNTER → 2023-10-15 09:50 | Outpatient (BNVA) | payer MEDICARE, SELFPAY | PROVIDERS: PCP Family Medicine; Referring Provider Internal Medicine Medical Oncology; Visit Provider Nurse Practitioner Family | DX: D64.9 Anemia, unspecified (principal); D47.1 Chronic myeloproliferative disease; I73.9 Peripheral vascular disease, unspecified; D69.6 Thrombocytopenia, unspecified | CPT/HCPCS: 80053; 85025 ==

== ENCOUNTER → 2023-10-22 09:48 | Outpatient (BNVA) | payer MEDICARE, SELFPAY | PROVIDERS: PCP Family Medicine; Visit Provider Nurse Practitioner Family | DX: N28.89 Other specified disorders of kidney and ureter (principal); D47.1 Chronic myeloproliferative disease | CPT/HCPCS: 80053; 85025 ==

== ENCOUNTER → 2023-10-29 17:01 | Outpatient (BNVA) | payer MEDICARE, SELFPAY | PROVIDERS: PCP Family Medicine; Visit Provider Nurse Practitioner Family | DX: D72.829 Elevated white blood cell count, unspecified (principal); D64.9 Anemia, unspecified; D69.6 Thrombocytopenia, unspecified | CPT/HCPCS: 80053; 85025 ==

== ENCOUNTER → 2023-11-09 08:59 | Outpatient (BNVA) | payer MEDICARE, SELFPAY | PROVIDERS: PCP Family Medicine; Visit Provider Nurse Practitioner Family | DX: D64.9 Anemia, unspecified (principal); D72.829 Elevated white blood cell count, unspecified; D69.6 Thrombocytopenia, unspecified; N28.89 Other specified disorders of kidney and ureter | CPT/HCPCS: 80053; 85007; 85025 ==

== ENCOUNTER 2023-11-10 09:00 | Oncology outpatient (recurring) (ONCR) | payer MEDICARE, SELFPAY ==
[2023-10-13] VITALS (7 sets, daily range): BP systolic 110–148; BP diastolic 63–78; PULSE 74–80; RESP 17–18; TEMP 36.2–36.9; O2SAT 93–99
[2023-10-13 08:46] LABS: Hematocrit 29.2 % (37-53); Mean Corpuscular HGB Conc 32.5 g/dL (30-55); Mean Corpuscular Hemoglobin 30.2 pg (27-33); Mean Corpuscular Volume 92.7 fl (82-101); Positive C 1; Positive M 1; Red Blood Count 3.15 10^6/uL (3.85-5.65); Red Cell Distribution Width 19.3 % (12.1-15.1); White Blood Count 27.45 10^3/uL (3.29-11.43)
[2023-10-13 09:16] LABS: Platelet Count 7 10^3/cmm (157-399)
[2023-10-13 09:22] LABS: Slide Review Slide Review Perform
[2023-10-13 09:29] LABS: Absolute Neutrophil 21.4 10^3/cmm (1.4-6.5); Anisocytosis 1+; Band Neutrophils Absolute 1.4 10^3/cmm (0.0-1.2); Eosinophils 0 %; Lymphocytes 6 %; Lymphocytes Absolute 3.6 10^3/cmm (1.2-3.4); Platelet Estimate Decreased (Normal); Polychromasia 1+; Segmented Neutrophils 73 %; Total Cells Counted 100 (0-100)
[2023-10-13] MEDS: hydrocortisone 100 mg/2 mL SDV IVP ×2 (12:37→12:40)
[2023-10-13] MEDS: acetaminophen 325 mg Tablet 650 MG PO (12:38)
[2023-10-13] MEDS: diphenhydrAMINE 25 mg Capsule PO (12:40)
[2023-10-16 08:16] VITALS: BP 112/65; PULSE 67; RESP 17; TEMP 36.5; O2SAT 97
[2023-10-16] MEDS: acetaminophen 325 mg Tablet 650 MG PO (08:31)
[2023-10-16] MEDS: diphenhydrAMINE 25 mg Capsule PO (08:31)
[2023-10-16] MEDS: sodium chloride 0.9% (100 ml) 100 ML 75 ML (08:33)
[2023-10-16] MEDS: hydrocortisone 100 mg/2 mL SDV IVP (08:35)
[2023-10-16 09:31] VITALS: BP 109/64; PULSE 75; RESP 17; TEMP 36.6; O2SAT 99
[2023-10-16 09:45] VITALS: BP 109/64; PULSE 75; RESP 17; TEMP 36.6; O2SAT 99
[2023-10-19 09:04] LABS: Hematocrit 27.1 % (37-53); Mean Corpuscular HGB Conc 32.5 g/dL (30-55); Mean Corpuscular Hemoglobin 29.9 pg (27-33); Mean Corpuscular Volume 92.2 fl (82-101); Red Blood Count 2.94 10^6/uL (3.85-5.65); Red Cell Distribution Width 19.3 % (12.1-15.1); White Blood Count 21.89 10^3/uL (3.29-11.43)
[2023-10-19 09:39] LABS: Slide Review Slide Review Perform
[2023-10-19 09:43] LABS: Platelet Count 12 10^3/cmm (157-399)
[2023-10-19 09:48] LABS: Absolute Segmented Neutrophil 13.6 10/cmm (1.6-7.1); Band Neutrophils Absolute 2.8 10^3/cmm (0.0-1.2); Corrected White Blood Count 20.7 10^3/cmm (4.8-10.8); Eosinophils 0 %; Lymphocytes 15 %; Lymphocytes Absolute 3.5 10^3/cmm (1.2-3.4); Monocytes Absolute 0.9 10^3/cmm (0.1-0.6); Segmented Neutrophils 62 %; Total Cells Counted 100 (0-100)
[2023-10-19 09:49] LABS: Absolute Neutrophil 16.4 10^3/cmm (1.4-6.5); Anisocytosis Trace; Platelet Estimate Decreased (Normal); Smudge Cells Trace
[2023-10-19 14:01] VITALS: BP 114/58; PULSE 89; O2SAT 98
[2023-10-19] MEDS: diphenhydrAMINE 25 mg Capsule PO (14:02)
[2023-10-19] MEDS: acetaminophen 325 mg Tablet 650 MG PO (14:02)
[2023-10-19] MEDS: hydrocortisone 100 mg/2 mL SDV IVP (14:05)
[2023-10-19] MEDS: sodium chloride 0.9% (100 ml) 100 ML 75 ML (14:11)
[2023-10-19 14:45] VITALS: BP 116/60; PULSE 85; TEMP 36.4; O2SAT 99
[2023-10-19 15:09] VITALS: BP 130/58; PULSE 80; TEMP 36.3; O2SAT 99
[2023-10-23] MEDS: hydrocortisone 100 mg/2 mL SDV IVP (08:13)
[2023-10-23] MEDS: diphenhydrAMINE 25 mg Capsule PO (08:13)
[2023-10-23 09:10] VITALS: BP 124/71; PULSE 80; RESP 16; TEMP 36.6; O2SAT 98
[2023-10-23 09:20] VITALS: BP 129/67; PULSE 72; RESP 16; TEMP 36.8; O2SAT 99
[2023-10-23 09:25] VITALS: BP 129/67; PULSE 72; RESP 16; TEMP 36.8; O2SAT 99
[2023-10-30 09:14] VITALS: BP 122/56; PULSE 74; RESP 17; TEMP 36.4; O2SAT 99
[2023-10-30] MEDS: diphenhydrAMINE 25 mg Capsule PO (09:36)
[2023-10-30] MEDS: acetaminophen 325 mg Tablet 650 MG PO (09:36)
[2023-10-30] MEDS: sodium chloride 0.9% (100 ml) 100 ML 75 ML (09:37)
[2023-10-30] MEDS: hydrocortisone 100 mg/2 mL SDV IVP (09:41)
[2023-10-30 10:34] LABS: Hematocrit 25.2 % (37-53); Mean Corpuscular HGB Conc 32.1 g/dL (30-55); Mean Corpuscular Hemoglobin 30.5 pg (27-33); Mean Corpuscular Volume 94.7 fl (82-101); Red Blood Count 2.66 10^6/uL (3.85-5.65); Red Cell Distribution Width 20.6 % (12.1-15.1); White Blood Count 21.22 10^3/uL (3.29-11.43)
[2023-10-30 10:54] LABS: Slide Review Slide Review Perform
[2023-10-30 10:56] LABS: Platelet Count 6 10^3/cmm (157-399)
[2023-10-30 10:57] LABS: Absolute Eosinophils 0.4 10^3/cmm (0.0-0.7); Absolute Segmented Neutrophil 14.2 10/cmm (1.6-7.1); Eosinophils 2 %; Lymphocytes 9 %; Monocytes Absolute 0.8 10^3/cmm (0.1-0.6); Segmented Neutrophils 67 %; Total Cells Counted 100 (0-100)
[2023-10-30 10:58] LABS: Absolute Neutrophil 14.2 10^3/cmm (1.4-6.5); Lymphocytes Absolute 1.9 10^3/cmm (1.2-3.4); Platelet Estimate Decreased (Normal)
[2023-10-30 11:41] VITALS: BP 124/66; PULSE 71; RESP 16; TEMP 35.8; O2SAT 99
[2023-10-30 11:55] VITALS: BP 132/57; PULSE 70; RESP 16; TEMP 36.6; O2SAT 97
[2023-10-30 12:01] VITALS: BP 132/57; PULSE 70; RESP 16; TEMP 36.6; O2SAT 97
[2023-10-30 12:44] VITALS: BP 101/52; PULSE 53; RESP 18; TEMP 36.6; O2SAT 97
[2023-11-05] VITALS (10 sets, daily range): BP systolic 100–113; BP diastolic 52–78; PULSE 53–84; RESP 17–18; TEMP 36.3–36.6; O2SAT 97–99
[2023-11-05 08:43] LABS: Hematocrit 26.1 % (37-53); Mean Corpuscular HGB Conc 31.4 g/dL (30-55); Mean Corpuscular Hemoglobin 29.7 pg (27-33); Mean Corpuscular Volume 94.6 fl (82-101); Red Blood Count 2.76 10^6/uL (3.85-5.65); Red Cell Distribution Width 20.5 % (12.1-15.1); White Blood Count 20.78 10^3/uL (3.29-11.43)
[2023-11-05 09:18] LABS: Platelet Count 7 10^3/cmm (157-399)
[2023-11-05 09:20] LABS: Slide Review Slide Review Perform
[2023-11-05 09:21] LABS: Total Cells Counted 100 (0-100)
[2023-11-05 09:27] LABS: Absolute Segmented Neutrophil 15.6 10/cmm (1.6-7.1); Band Neutrophils Absolute 1.2 10^3/cmm (0.0-1.2); Eosinophils 0 %; Lymphocytes 6 %; Lymphocytes Absolute 1.5 10^3/cmm (1.2-3.4); Monocytes Absolute 0.8 10^3/cmm (0.1-0.6); Segmented Neutrophils 75 %
[2023-11-05 09:28] LABS: Absolute Neutrophil 16.8 10^3/cmm (1.4-6.5); Anisocytosis 2+; Corrected White Blood Count 18.9 10^3/cmm (4.8-10.8); Macrocytosis 1+; Platelet Estimate Decreased (Normal); Poikilocytosis 1+; Polychromasia 1+
[2023-11-05] MEDS: diphenhydrAMINE 25 mg Capsule PO (11:59)
[2023-11-05] MEDS: acetaminophen 325 mg Tablet 650 MG PO (11:59)
[2023-11-05] MEDS: sodium chloride 0.9% 250 mL Bag IV (12:01)
[2023-11-05] MEDS: hydrocortisone 100 mg/2 mL SDV IVP (14:02)
[2023-11-10] MEDS: acetaminophen 325 mg Tablet 650 MG PO (08:54)
[2023-11-10] MEDS: diphenhydrAMINE 25 mg Capsule PO (08:54)
[2023-11-10] MEDS: hydrocortisone 100 mg/2 mL SDV IVP (09:02)
[2023-11-10 09:07] VITALS: BP 116/63; PULSE 73; RESP 18; TEMP 36.6; O2SAT 99
[2023-11-10 10:51] VITALS: BP 120/68; PULSE 82; RESP 18; TEMP 36.8; O2SAT 96
[2023-11-10 11:09] VITALS: BP 125/71; PULSE 82; RESP 18; TEMP 36.4; O2SAT 98
[2023-11-10 11:15] VITALS: BP 125/71; PULSE 82; RESP 17; TEMP 36.4; O2SAT 98
== END 2023-11-10 23:59 | disposition home or self-care (01) ==
PROVIDERS: PCP Family Medicine; Visit Provider Internal Medicine Medical Oncology
DX: D69.6 Thrombocytopenia, unspecified (principal); Z53.9 Procedure and treatment not carried out, unspecified reason
CPT/HCPCS: 36430; 80053; 85007; 85025; 86850; 86900; 86920; 96374; 96375; J1642; J1720; J7050; P9016; P9035; P9055

== ENCOUNTER → 2023-11-12 09:01 | Outpatient (BNVA) | payer MEDICARE, SELFPAY | PROVIDERS: PCP Family Medicine; Visit Provider Nurse Practitioner Family | DX: D69.6 Thrombocytopenia, unspecified (principal); D64.9 Anemia, unspecified | CPT/HCPCS: 80053; 85025; 86850; 86900 ==

== ENCOUNTER → 2023-11-16 08:46 | Outpatient (BNVA) | payer MEDICARE, SELFPAY | PROVIDERS: PCP Family Medicine; Visit Provider Nurse Practitioner Family | DX: D64.9 Anemia, unspecified (principal); D69.6 Thrombocytopenia, unspecified | CPT/HCPCS: 80053; 85007; 85025 ==

== ENCOUNTER → 2023-11-18 15:06 | Outpatient (BNVA) | payer MEDICARE, SELFPAY | PROVIDERS: PCP Family Medicine; Visit Provider Nurse Practitioner Family | DX: D69.6 Thrombocytopenia, unspecified (principal) | CPT/HCPCS: 80053; 85025 ==

== ENCOUNTER → 2023-11-26 09:19 | Outpatient (BNVA) | payer MEDICARE, SELFPAY | PROVIDERS: PCP Family Medicine; Visit Provider Nurse Practitioner Family | DX: D69.6 Thrombocytopenia, unspecified (principal) | CPT/HCPCS: 80053; 85025 ==

== ENCOUNTER → 2023-11-30 09:24 | Outpatient (BNVA) | payer MEDICARE, SELFPAY | PROVIDERS: PCP Family Medicine; Visit Provider Nurse Practitioner Family | DX: D69.6 Thrombocytopenia, unspecified (principal) | CPT/HCPCS: 80053; 85007; 85025 ==

== ENCOUNTER → 2023-12-03 08:49 | Outpatient (BNVA) | payer MEDICARE, SELFPAY | PROVIDERS: PCP Family Medicine; Visit Provider Nurse Practitioner Family | DX: D69.6 Thrombocytopenia, unspecified (principal) | CPT/HCPCS: 80053; 85007; 85025 ==

== ENCOUNTER → 2023-12-07 09:33 | Outpatient (BNVA) | payer MEDICARE, SELFPAY | PROVIDERS: PCP Family Medicine; Visit Provider Nurse Practitioner Family | DX: D72.829 Elevated white blood cell count, unspecified (principal) | CPT/HCPCS: 80053; 85007; 85025 ==

== ENCOUNTER 2023-12-08 09:00 | Oncology outpatient (recurring) (ONCR) | payer MEDICARE, SELFPAY ==
--- NOTE | 2023-11-12 16:48 | PC.NURSE ---
Called pt regarding platelets. Notified pt that Dr. Lowe stated he can have one unit of platelets tomorrow 11/13/23 or wait until next week when he has labs drawn again. Pt states he will wait until next week. JEREMY
[2023-11-17 08:59] VITALS: PULSE 78; RESP 18; TEMP 36.9; O2SAT 99
[2023-11-17] MEDS: diphenhydrAMINE 25 mg Capsule PO ×2 (09:03→09:15)
[2023-11-17] MEDS: hydrocortisone 100 mg/2 mL SDV IVP (09:10)
[2023-11-17] MEDS: acetaminophen 325 mg Tablet 650 MG PO (09:10)
[2023-11-17 09:19] VITALS: BP 117/78; PULSE 79; RESP 18; TEMP 36.6; O2SAT 98
[2023-11-17 09:40] VITALS: BP 120/66; PULSE 77; RESP 18; TEMP 36.6; O2SAT 95
[2023-11-17 09:44] VITALS: BP 114/61; PULSE 77; RESP 18; TEMP 36.9; O2SAT 98
[2023-11-17 09:55] VITALS: BP 113/52; PULSE 77; RESP 18; TEMP 36.6; O2SAT 98
[2023-11-17 10:00] VITALS: BP 117/78; PULSE 77; RESP 18; TEMP 36.6; O2SAT 98
[2023-11-20 07:57] VITALS: BMI 25.4
[2023-11-20 07:59] VITALS: BP 126/72; PULSE 87; RESP 17; TEMP 36.5; O2SAT 99
[2023-11-20] MEDS: sodium chloride 0.9% (100 ml) 100 ML 75 ML (08:21)
[2023-11-20] MEDS: acetaminophen 325 mg Tablet 650 MG PO (08:22)
[2023-11-20] MEDS: hydrocortisone 100 mg/2 mL SDV IVP (08:22)
[2023-11-20 08:51] VITALS: BP 101/57; PULSE 82; RESP 18; TEMP 36.2; O2SAT 99
[2023-11-24 08:04] VITALS: BP 125/67; PULSE 73; RESP 17; TEMP 36.2; O2SAT 99
[2023-11-24 08:16] LABS: Hematocrit 28.4 % (37-53); Mean Corpuscular Hemoglobin 30.2 pg (27-33); Mean Corpuscular Volume 94.4 fl (82-101); Red Blood Count 3.01 10^6/uL (3.85-5.65); Red Cell Distribution Width 19.9 % (12.1-15.1); White Blood Count 20.18 10^3/uL (3.29-11.43)
[2023-11-24 08:31] LABS: Alanine Aminotransferase 10 U/L (0-41); Alkaline Phosphatase 87 U/L (40-130); Anion Gap 15.6 (5-19); Aspartate Amino Transferase 16 U/L (0-40); Blood Urea Nitrogen 19 mg/dL (8-23); Calcium 8.5 mg/dL (8.5-10.5); Carbon Dioxide 24 mmol/L (22-29); Chloride 96 mmol/L (98-107); Creatinine Clr Calc Pharmacy 52.3815; Globulin 3.1 g/dL (1.3-4.6); Glucose 280 mg/dL (65-115); Osmolality Calculated 284 mOsm/kg (285-295); Potassium 4.6 mmol/L (3.5-5.1); Sodium 131 mmol/L (136-145); Total Bilirubin 0.5 mg/dL (0.15-1.2); Total Protein 7.1 g/dL (6.6-8.7)
[2023-11-24] MEDS: acetaminophen 325 mg Tablet 650 MG PO (08:58)
[2023-11-24] MEDS: diphenhydrAMINE 25 mg Capsule PO (08:59)
[2023-11-24] MEDS: sodium chloride 0.9% (100 ml) 100 ML 75 ML (09:01)
[2023-11-24] MEDS: hydrocortisone 100 mg/2 mL SDV IVP (09:05)
[2023-11-24 09:07] LABS: Platelet Count 9 10^3/cmm (157-399)
[2023-11-24 09:09] LABS: Slide Review Slide Review Perform
[2023-11-24 09:20] LABS: Total Cells Counted 100 (0-100)
[2023-11-24 09:22] LABS: Absolute Neutrophil 13.1 10^3/cmm (1.4-6.5); Absolute Segmented Neutrophil 12.3 10/cmm (1.6-7.1); Anisocytosis 2+; Band Neutrophils Absolute 0.8 10^3/cmm (0.0-1.2); Eosinophils 0 %; Lymphocytes 10 %; Lymphocytes Absolute 2.4 10^3/cmm (1.2-3.4); Monocytes Absolute 0.2 10^3/cmm (0.1-0.6); Platelet Estimate Decreased (Normal); Polychromasia Trace; Segmented Neutrophils 61 %
[2023-11-24 09:23] LABS: Macrocytosis Trace
[2023-11-24 09:46] VITALS: BP 130/64; PULSE 88; RESP 17; TEMP 35.9; O2SAT 98
[2023-11-24 10:01] VITALS: BP 133/67; PULSE 65; RESP 17; TEMP 36.2; O2SAT 98
[2023-11-24 10:04] VITALS: BP 119/72; RESP 17; TEMP 36.2; O2SAT 99
[2023-11-24 10:14] VITALS: BP 119/62; PULSE 67; RESP 17; TEMP 36.2; O2SAT 99
[2023-11-27] MEDS: hydrocortisone 100 mg/2 mL SDV IVP (08:13)
[2023-11-27] MEDS: diphenhydrAMINE 25 mg Capsule PO (08:13)
[2023-11-27] MEDS: acetaminophen 325 mg Tablet 650 MG PO (08:13)
[2023-11-27] MEDS: sodium chloride 0.9% (100 ml) 100 ML 75 ML (08:20)
[2023-11-27 08:40] VITALS: BP 102/59; PULSE 85; TEMP 36.7; O2SAT 96
[2023-11-27 09:05] VITALS: BP 115/67; PULSE 76; TEMP 36.7; O2SAT 98
[2023-12-01 09:15] VITALS: BP 113/64; PULSE 81; RESP 20; TEMP 36.7; O2SAT 94
[2023-12-01] MEDS: acetaminophen 325 mg Tablet 650 MG PO (09:36)
[2023-12-01] MEDS: diphenhydrAMINE 25 mg Capsule PO (09:36)
[2023-12-01] MEDS: hydrocortisone 100 mg/2 mL SDV IVP (09:36)
[2023-12-01] MEDS: sodium chloride 0.9% 250 mL Bag IV (09:37)
[2023-12-01 10:21] VITALS: BP 109/65; PULSE 76; RESP 18; TEMP 35.9; O2SAT 97
[2023-12-01 10:36] VITALS: BP 109/62; PULSE 76; RESP 18; TEMP 36.5; O2SAT 99
[2023-12-04] MEDS: sodium chloride 0.9% (100 ml) 100 ML 75 ML (11:03)
[2023-12-04] MEDS: acetaminophen 325 mg Tablet 650 MG PO (11:05)
[2023-12-04] MEDS: diphenhydrAMINE 25 mg Capsule PO (11:05)
[2023-12-04] MEDS: hydrocortisone 100 mg/2 mL SDV IVP (11:09)
[2023-12-04 11:29] VITALS: BP 111/66; PULSE 80; TEMP 36.9; O2SAT 99
[2023-12-04 11:45] VITALS: BP 109/61; PULSE 73; RESP 17; TEMP 36.6; O2SAT 98
[2023-12-04 11:47] VITALS: BP 113/61; PULSE 73; RESP 17; TEMP 36.6; O2SAT 99
[2023-12-04 12:00] VITALS: BP 113/61; PULSE 73; RESP 17; TEMP 36.6; O2SAT 99
[2023-12-08] MEDS: acetaminophen 325 mg Tablet 650 MG PO (09:05)
[2023-12-08] MEDS: diphenhydrAMINE 25 mg Capsule PO (09:06)
[2023-12-08] MEDS: sodium chloride 0.9% (100 ml) 100 ML 75 ML (09:08)
[2023-12-08] MEDS: hydrocortisone 100 mg/2 mL SDV IVP (09:12)
[2023-12-08 09:53] VITALS: BP 116/64; PULSE 72; RESP 17; TEMP 36.6; O2SAT 98
[2023-12-08 10:05] VITALS: BP 119/63; PULSE 74; RESP 17; TEMP 36.6; O2SAT 98
[2023-12-08 10:10] VITALS: BP 119/63; PULSE 74; RESP 17; TEMP 36.6; O2SAT 98
== END 2023-12-10 23:59 | disposition home or self-care (01) ==
PROVIDERS: PCP Family Medicine; Visit Provider Internal Medicine Medical Oncology
DX: D69.6 Thrombocytopenia, unspecified (principal); Z53.9 Procedure and treatment not carried out, unspecified reason
CPT/HCPCS: 36430; 36591; 80053; 85007; 85025; 86850; 86900; 96374; 96375; J1642; J1720; J7050; P9016; P9035

== ENCOUNTER → 2023-12-10 09:18 | Outpatient (BNVA) | payer MEDICARE, SELFPAY | PROVIDERS: PCP Family Medicine; Visit Provider Nurse Practitioner Family | DX: D69.6 Thrombocytopenia, unspecified (principal) | CPT/HCPCS: 80053; 85025; 86850; 86900 ==

== ENCOUNTER → 2023-12-14 09:00 | Outpatient (BNVA) | payer MEDICARE, SELFPAY | PROVIDERS: PCP Family Medicine; Visit Provider Nurse Practitioner Family | DX: D69.6 Thrombocytopenia, unspecified (principal) | CPT/HCPCS: 80053; 85007; 85025 ==

== ENCOUNTER → 2023-12-17 09:16 | Outpatient (BNVA) | payer MEDICARE, SELFPAY | PROVIDERS: PCP Family Medicine; Visit Provider Nurse Practitioner Family | DX: D69.6 Thrombocytopenia, unspecified (principal); D72.829 Elevated white blood cell count, unspecified | CPT/HCPCS: 80053; 85025 ==

== ENCOUNTER → 2023-12-21 09:11 | Outpatient (BNVA) | payer MEDICARE, SELFPAY | PROVIDERS: PCP Family Medicine; Visit Provider Nurse Practitioner Family | DX: D69.6 Thrombocytopenia, unspecified (principal) | CPT/HCPCS: 80053; 85007; 85025 ==

== ENCOUNTER → 2023-12-24 09:00 | Outpatient (BNVA) | payer MEDICARE, SELFPAY | PROVIDERS: PCP Family Medicine; Visit Provider Nurse Practitioner Family | DX: D69.6 Thrombocytopenia, unspecified (principal) | CPT/HCPCS: 80053; 85025 ==

== ENCOUNTER → 2023-12-28 09:30 | Outpatient (BNVA) | payer MEDICARE, SELFPAY | PROVIDERS: PCP Family Medicine; Visit Provider Nurse Practitioner Family | DX: D69.6 Thrombocytopenia, unspecified (principal) | CPT/HCPCS: 80053; 85007; 85025 ==

== ENCOUNTER → 2023-12-31 08:31 | Outpatient (BNVA) | payer MEDICARE, SELFPAY | PROVIDERS: PCP Family Medicine; Visit Provider Nurse Practitioner Family | DX: D47.1 Chronic myeloproliferative disease (principal); D69.6 Thrombocytopenia, unspecified; D64.9 Anemia, unspecified | CPT/HCPCS: 80053; 85025 ==

== ENCOUNTER → 2024-01-04 09:00 | Outpatient (BNVA) | payer MEDICARE, SELFPAY | PROVIDERS: PCP Family Medicine; Visit Provider Nurse Practitioner Family | DX: D69.6 Thrombocytopenia, unspecified (principal) | CPT/HCPCS: 80053; 85007; 85025 ==

== ENCOUNTER → 2024-01-07 09:00 | Outpatient (BNVA) | payer MEDICARE, SELFPAY | PROVIDERS: PCP Family Medicine; Visit Provider Nurse Practitioner Family | DX: D69.6 Thrombocytopenia, unspecified (principal) | CPT/HCPCS: 80053; 85007; 85025 ==

== ENCOUNTER 2024-01-08 08:00 | Oncology outpatient (recurring) (ONCR) | payer MEDICARE, SELFPAY ==
[2023-12-11] MEDS: acetaminophen 325 mg Tablet 650 MG PO (08:08)
[2023-12-11] MEDS: diphenhydrAMINE 25 mg Capsule PO (08:08)
[2023-12-11] MEDS: hydrocortisone 100 mg/2 mL SDV IVP (08:08)
[2023-12-11 08:43] VITALS: BP 103/56; PULSE 84; RESP 16; TEMP 36.6; O2SAT 99
[2023-12-11 08:54] VITALS: BP 114/55; PULSE 79; RESP 16; TEMP 36.6; O2SAT 99
[2023-12-11 09:00] VITALS: BP 114/55; PULSE 79; RESP 16; TEMP 36.6; O2SAT 99
[2023-12-15] MEDS: diphenhydrAMINE 25 mg Capsule PO (09:06)
[2023-12-15] MEDS: acetaminophen 325 mg Tablet 650 MG PO (09:06)
[2023-12-15] MEDS: hydrocortisone 100 mg/2 mL SDV IVP (09:11)
[2023-12-15 09:12] VITALS: BP 120/71; PULSE 77; RESP 18; TEMP 36.8; O2SAT 97
[2023-12-15 09:43] VITALS: BP 98/56; RESP 17; TEMP 36.8; O2SAT 99
[2023-12-15 10:05] VITALS: BP 117/68; PULSE 71; RESP 17; RESP 18; TEMP 36.8; O2SAT 99
[2023-12-15 10:50] VITALS: BP 109/73; PULSE 72; RESP 18; TEMP 36.6; O2SAT 97
[2023-12-18] MEDS: sodium chloride 0.9% (100 ml) 100 ML (08:12)
[2023-12-18] MEDS: acetaminophen 325 mg Tablet 650 MG PO (08:13)
[2023-12-18] MEDS: diphenhydrAMINE 25 mg Capsule PO (08:13)
[2023-12-18] MEDS: hydrocortisone 100 mg/2 mL SDV IVP (08:13)
[2023-12-18 09:30] VITALS: BP 125/60; PULSE 77; RESP 16; TEMP 36.3; O2SAT 97
[2023-12-18 09:40] VITALS: BP 108/56; PULSE 77; RESP 16; TEMP 36.4; O2SAT 99
[2023-12-22 09:03] VITALS: BP 134/77; PULSE 74; RESP 16; TEMP 36.9; O2SAT 99
[2023-12-22] MEDS: diphenhydrAMINE 25 mg Capsule PO (09:08)
[2023-12-22] MEDS: acetaminophen 325 mg Tablet 650 MG PO ×2 (09:08→09:09)
[2023-12-22] MEDS: hydrocortisone 100 mg/2 mL SDV IVP (09:09)
[2023-12-22 09:46] VITALS: BP 114/65; PULSE 79; RESP 18; TEMP 36.4; O2SAT 96
[2023-12-22 10:10] VITALS: BP 123/61; PULSE 76; RESP 18; TEMP 36.6; O2SAT 96
[2023-12-25] MEDS: acetaminophen 325 mg Tablet 650 MG PO (08:04)
[2023-12-25] MEDS: diphenhydrAMINE 25 mg Capsule PO (08:04)
[2023-12-25] MEDS: hydrocortisone 100 mg/2 mL SDV IVP (08:05)
[2023-12-25 08:50] VITALS: BP 101/61; PULSE 78; RESP 16; TEMP 36.4; O2SAT 99
[2023-12-29] VITALS (14 sets, daily range): BP systolic 117–157; BP diastolic 62–78; PULSE 72–79; RESP 17–18; TEMP 36.2–36.8; O2SAT 93–99
[2023-12-29] MEDS: hydrocortisone 100 mg/2 mL SDV IVP (09:30)
[2023-12-29] MEDS: acetaminophen 325 mg Tablet 650 MG PO ×2 (09:31→09:32)
[2023-12-29] MEDS: diphenhydrAMINE 25 mg Capsule PO (09:32)
[2024-01-01] MEDS: acetaminophen 325 mg Tablet 650 MG PO (07:56)
[2024-01-01] MEDS: diphenhydrAMINE 25 mg Capsule PO (07:56)
[2024-01-01] MEDS: hydrocortisone 100 mg/2 mL SDV IVP (07:56)
[2024-01-01 08:45] VITALS: BP 127/67; TEMP 36.4; O2SAT 99
[2024-01-01 09:04] VITALS: BP 146/71; PULSE 86; RESP 18; TEMP 36.5; O2SAT 98
[2024-01-01 09:05] VITALS: BP 146/71; PULSE 86; RESP 18; TEMP 36.5; O2SAT 98
[2024-01-05 08:58] VITALS: BP 143/78; PULSE 78; RESP 18; TEMP 36.2; O2SAT 97
[2024-01-05] MEDS: diphenhydrAMINE 25 mg Capsule PO (09:11)
[2024-01-05] MEDS: hydrocortisone 100 mg/2 mL SDV IVP (09:11)
[2024-01-05] MEDS: sodium chloride 0.9% 250 mL Bag IV (09:12)
[2024-01-05] MEDS: acetaminophen 325 mg Tablet 650 MG PO (09:12)
[2024-01-05 09:41] VITALS: BP 122/66; PULSE 86; RESP 18; TEMP 36.6; O2SAT 98
[2024-01-05 10:01] VITALS: BP 114/61; PULSE 79; RESP 18; TEMP 36.5; O2SAT 99
[2024-01-08 07:57] VITALS: BP 134/65; PULSE 77; RESP 17; TEMP 36.4; O2SAT 99
[2024-01-08] MEDS: hydrocortisone 100 mg/2 mL SDV IVP (08:03)
[2024-01-08] MEDS: diphenhydrAMINE 25 mg Capsule PO (08:04)
[2024-01-08] MEDS: acetaminophen 325 mg Tablet 650 MG PO (08:04)
[2024-01-08] MEDS: sodium chloride 0.9% (100 ml) 100 ML 50 ML (08:05)
[2024-01-08 08:43] VITALS: BP 125/67; PULSE 70; RESP 17; TEMP 36.2; O2SAT 99
[2024-01-08 08:58] VITALS: BP 156/72; PULSE 67; RESP 17; TEMP 36.3; O2SAT 99
[2024-01-08 09:01] VITALS: BP 144/69; PULSE 67; RESP 17; TEMP 36.3; O2SAT 99
[2024-01-08 09:14] VITALS: BP 144/69; PULSE 65; RESP 17; TEMP 36.3; O2SAT 99
== END 2024-01-08 23:59 | disposition home or self-care (01) ==
PROVIDERS: PCP Family Medicine; Visit Provider Internal Medicine Medical Oncology
DX: D69.6 Thrombocytopenia, unspecified (principal); Z53.9 Procedure and treatment not carried out, unspecified reason
CPT/HCPCS: 36430; 86850; 86900; 86920; 96374; 96375; J1642; J1720; J7050; P9016; P9035; P9040

== ENCOUNTER → 2024-01-11 08:26 | Outpatient (BNVA) | payer MEDICARE, SELFPAY | PROVIDERS: PCP Family Medicine; Visit Provider Nurse Practitioner Family | DX: D69.6 Thrombocytopenia, unspecified (principal) | CPT/HCPCS: 80053; 85007; 85025; 86850; 86900 ==

== ENCOUNTER → 2024-01-14 09:00 | Outpatient (BNVA) | payer MEDICARE, SELFPAY | PROVIDERS: PCP Family Medicine; Visit Provider Nurse Practitioner Family | DX: D69.6 Thrombocytopenia, unspecified (principal) | CPT/HCPCS: 80053; 85025 ==

== ENCOUNTER → 2024-01-21 09:00 | Outpatient (BNVA) | payer MEDICARE, SELFPAY | PROVIDERS: PCP Family Medicine; Visit Provider Nurse Practitioner Family | DX: D69.6 Thrombocytopenia, unspecified (principal) | CPT/HCPCS: 80053; 85025 ==

== ENCOUNTER → 2024-01-25 09:00 | Outpatient (BNVA) | payer MEDICARE, SELFPAY | PROVIDERS: PCP Family Medicine; Visit Provider Nurse Practitioner Family | DX: D69.6 Thrombocytopenia, unspecified (principal) | CPT/HCPCS: 80053; 85007; 85025 ==

== ENCOUNTER → 2024-01-28 09:00 | Outpatient (BNVA) | payer MEDICARE, SELFPAY | PROVIDERS: PCP Family Medicine; Visit Provider Nurse Practitioner Family | DX: D69.6 Thrombocytopenia, unspecified (principal) | CPT/HCPCS: 80053; 85025 ==

== ENCOUNTER → 2024-02-01 09:00 | Outpatient (BNVA) | payer MEDICARE, SELFPAY | PROVIDERS: PCP Family Medicine; Visit Provider Nurse Practitioner Family | DX: D69.6 Thrombocytopenia, unspecified (principal) | CPT/HCPCS: 80053; 85007; 85025 ==

== ENCOUNTER → 2024-02-04 09:00 | Outpatient (BNVA) | payer MEDICARE, SELFPAY | PROVIDERS: PCP Family Medicine; Referring Provider Internal Medicine Medical Oncology; Visit Provider Nurse Practitioner Family | DX: D69.6 Thrombocytopenia, unspecified (principal) | CPT/HCPCS: 80053; 85025 ==

== ENCOUNTER → 2024-02-08 09:00 | Outpatient (BNVA) | payer MEDICARE, SELFPAY | PROVIDERS: PCP Family Medicine; Visit Provider Nurse Practitioner Family | DX: D69.6 Thrombocytopenia, unspecified (principal) | CPT/HCPCS: 80053; 85007; 85025 ==

== ENCOUNTER 2024-02-09 09:00 | Oncology outpatient (recurring) (ONCR) | payer MEDICARE, SELFPAY ==
[2024-01-12] MEDS: acetaminophen 325 mg Tablet 650 MG PO (09:42)
[2024-01-12] MEDS: diphenhydrAMINE 25 mg Capsule PO (09:43)
[2024-01-12] MEDS: hydrocortisone 100 mg/2 mL SDV IVP (09:53)
[2024-01-12 10:02] VITALS: BP 129/67; PULSE 84; RESP 18; TEMP 36.3; O2SAT 98
[2024-01-12 10:35] VITALS: BP 129/67; PULSE 84; RESP 18; TEMP 36.3; O2SAT 98
[2024-01-15] MEDS: acetaminophen 325 mg Tablet 650 MG PO (08:22)
[2024-01-15] MEDS: diphenhydrAMINE 25 mg Capsule PO (08:22)
[2024-01-15] MEDS: sodium chloride 0.9% (100 ml) 100 ML 75 ML (08:23)
[2024-01-15] MEDS: hydrocortisone 100 mg/2 mL SDV IVP (08:27)
[2024-01-15 09:17] VITALS: BP 139/70; PULSE 81; RESP 17; TEMP 36.4; O2SAT 99
[2024-01-15 09:31] VITALS: BP 122/77; PULSE 74; RESP 17; TEMP 36.5; O2SAT 98
[2024-01-15 09:45] VITALS: BP 122/77; PULSE 74; RESP 17; TEMP 36.5; O2SAT 98
[2024-01-19 08:09] VITALS: PULSE 82; RESP 18; TEMP 36.2; O2SAT 99
[2024-01-19 08:29] LABS: Hematocrit 26.6 % (37-53); Mean Corpuscular HGB Conc 31.2 g/dL (30-55); Mean Corpuscular Hemoglobin 28.8 pg (27-33); Mean Corpuscular Volume 92.4 fl (82-101); Red Blood Count 2.88 10^6/uL (3.85-5.65); Red Cell Distribution Width 20.6 % (12.1-15.1); White Blood Count 16.99 10^3/uL (3.29-11.43)
[2024-01-19 09:30] LABS: Platelet Count 6 10^3/cmm (157-399)
[2024-01-19 09:33] LABS: Slide Review Slide Review Perform
[2024-01-19 09:34] LABS: Total Cells Counted 100 (0-100)
[2024-01-19] MEDS: hydrocortisone 100 mg/2 mL SDV IVP (09:40)
[2024-01-19] MEDS: acetaminophen 325 mg Tablet 650 MG PO (09:40)
[2024-01-19 09:41] LABS: Band Neutrophils Absolute 2.4 10^3/cmm (0.0-1.2); Lymphocytes 7 %
[2024-01-19] MEDS: diphenhydrAMINE 25 mg Capsule PO (09:41)
[2024-01-19 09:42] LABS: Absolute Neutrophil 13.4 10^3/cmm (1.4-6.5); Anisocytosis 2+; Corrected White Blood Count 16.3 10^3/cmm (4.8-10.8); Eosinophils 0 %; Lymphocytes Absolute 1.5 10^3/cmm (1.2-3.4); Monocytes Absolute 0.3 10^3/cmm (0.1-0.6); Platelet Estimate Decreased (Normal); Polychromasia Trace; Segmented Neutrophils 65 %
[2024-01-19 10:10] VITALS: BP 135/69; PULSE 86; RESP 18; TEMP 36.4; O2SAT 99
[2024-01-19 10:29] VITALS: BP 122/78; PULSE 74; RESP 18; TEMP 36.6; O2SAT 98
[2024-01-19 10:40] VITALS: BP 122/78; PULSE 78; RESP 18; TEMP 36.6; O2SAT 98
[2024-01-19 10:45] VITALS: BP 122/78; PULSE 74; RESP 18; TEMP 36.6; O2SAT 98
[2024-01-22] MEDS: diphenhydrAMINE 25 mg Capsule PO (08:05)
[2024-01-22] MEDS: hydrocortisone 100 mg/2 mL SDV IVP (08:05)
[2024-01-22] MEDS: acetaminophen 325 mg Tablet 650 MG PO (08:05)
[2024-01-22 08:45] VITALS: BP 137/62; PULSE 78; RESP 16; TEMP 36.2; O2SAT 99
[2024-01-22 08:55] VITALS: BP 159/72; PULSE 78; RESP 16; TEMP 36.2; O2SAT 99
[2024-01-26 09:20] VITALS: PULSE 88; TEMP 36.2; O2SAT 98
[2024-01-26] MEDS: diphenhydrAMINE 25 mg Capsule PO (09:32)
[2024-01-26] MEDS: sodium chloride 0.9% (100 ml) 100 ML 75 ML (09:32)
[2024-01-26] MEDS: acetaminophen 325 mg Tablet 650 MG PO (09:32)
[2024-01-26] MEDS: hydrocortisone 100 mg/2 mL SDV IVP (09:33)
[2024-01-26 10:15] VITALS: BP 117/74; PULSE 81; RESP 18; TEMP 36.6; O2SAT 98
[2024-01-26 10:25] VITALS: BP 112/66; PULSE 81; RESP 18; TEMP 36.1; O2SAT 98
[2024-01-26 10:30] VITALS: BP 112/66; PULSE 81; RESP 18; TEMP 36.1; O2SAT 99
[2024-01-26 10:35] VITALS: BP 112/66; PULSE 81; RESP 18; TEMP 36.6; O2SAT 98
[2024-01-29 08:02] VITALS: BP 138/72; PULSE 79; TEMP 36.2; O2SAT 99
[2024-01-29] MEDS: acetaminophen 325 mg Tablet 650 MG PO (08:22)
[2024-01-29] MEDS: diphenhydrAMINE 25 mg Capsule PO (08:22)
[2024-01-29] MEDS: hydrocortisone 100 mg/2 mL SDV IVP (08:28)
[2024-01-29] MEDS: sodium chloride 0.9% (100 ml) 100 ML 75 ML (08:28)
[2024-01-29 09:00] VITALS: PULSE 88; RESP 16; TEMP 36.3; O2SAT 99
[2024-01-29 09:14] VITALS: BP 110/65; PULSE 83; TEMP 36.4; O2SAT 99
[2024-02-02] VITALS (14 sets, daily range): BP systolic 108–156; BP diastolic 53–89; PULSE 67–97; RESP 16–18; TEMP 36.2–37.1; O2SAT 96–99
[2024-02-02] MEDS: hydrocortisone 100 mg/2 mL SDV IVP (10:16)
[2024-02-02] MEDS: diphenhydrAMINE 25 mg Capsule PO (10:16)
[2024-02-02] MEDS: acetaminophen 325 mg Tablet 650 MG PO (10:16)
[2024-02-02] MEDS: FUROsemide 10 mg/mL SDV 4mL 40 MG IVP (14:24)
[2024-02-05] MEDS: sodium chloride 0.9% (100 ml) 100 ML 75 ML (08:19)
[2024-02-05] MEDS: hydrocortisone 100 mg/2 mL SDV IVP (08:20)
[2024-02-05] MEDS: acetaminophen 325 mg Tablet 650 MG PO (08:21)
[2024-02-05] MEDS: diphenhydrAMINE 25 mg Capsule PO (08:21)
[2024-02-05 09:21] VITALS: BP 117/68; PULSE 78; RESP 16; TEMP 36.1; O2SAT 16; O2SAT 98
[2024-02-05 09:43] VITALS: BP 117/62; PULSE 80; RESP 16; TEMP 36.1; O2SAT 98
[2024-02-09] MEDS: diphenhydrAMINE 25 mg Capsule PO (09:18)
[2024-02-09] MEDS: acetaminophen 325 mg Tablet 650 MG PO (09:18)
[2024-02-09 09:20] VITALS: BP 120/76; PULSE 84; RESP 18; TEMP 36.3; O2SAT 98
[2024-02-09] MEDS: hydrocortisone 100 mg/2 mL SDV IVP (09:45)
[2024-02-09 10:07] VITALS: BP 124/63; PULSE 86; RESP 18; TEMP 36.2; O2SAT 99
[2024-02-09 10:15] VITALS: BP 124/63; PULSE 86; RESP 18; TEMP 36.8; O2SAT 99
== END 2024-02-09 23:59 | disposition home or self-care (01) ==
PROVIDERS: PCP Family Medicine; Visit Provider Internal Medicine Medical Oncology
DX: D69.6 Thrombocytopenia, unspecified (principal); Z53.9 Procedure and treatment not carried out, unspecified reason
CPT/HCPCS: 36430; 85007; 85025; 86850; 86900; 86920; 96374; 96375; J1720; J1940; P9016; P9035; P9040

== ENCOUNTER → 2024-02-11 09:10 | Outpatient (BNVA) | payer MEDICARE, SELFPAY | PROVIDERS: PCP Family Medicine; Visit Provider Nurse Practitioner Family | DX: D69.6 Thrombocytopenia, unspecified (principal) | CPT/HCPCS: 80053; 85025; 86850; 86900 ==

== ENCOUNTER → 2024-02-15 08:50 | Outpatient (BNVA) | payer MEDICARE, SELFPAY | PROVIDERS: PCP Family Medicine; Visit Provider Nurse Practitioner Family | DX: D69.6 Thrombocytopenia, unspecified (principal) | CPT/HCPCS: 80053; 85007; 85025 ==

== ENCOUNTER → 2024-02-18 08:50 | Outpatient (BNVA) | payer MEDICARE, SELFPAY | PROVIDERS: PCP Family Medicine; Visit Provider Nurse Practitioner Family | DX: D69.6 Thrombocytopenia, unspecified (principal) | CPT/HCPCS: 80053; 85025 ==

== ENCOUNTER → 2024-02-22 09:00 | Outpatient (BNVA) | payer MEDICARE, SELFPAY | PROVIDERS: PCP Family Medicine; Visit Provider Nurse Practitioner Family | DX: D69.6 Thrombocytopenia, unspecified (principal) | CPT/HCPCS: 80053; 85007; 85025 ==

== ENCOUNTER → 2024-02-25 07:57 | Outpatient (BNVA) | payer MEDICARE, SELFPAY | PROVIDERS: PCP Family Medicine; Visit Provider Nurse Practitioner Family | DX: D69.6 Thrombocytopenia, unspecified (principal) | CPT/HCPCS: 80053; 85025 ==

== ENCOUNTER → 2024-02-29 09:00 | Outpatient (BNVA) | payer MEDICARE, SELFPAY | PROVIDERS: PCP Family Medicine; Visit Provider Nurse Practitioner Family | DX: D69.6 Thrombocytopenia, unspecified (principal) | CPT/HCPCS: 80053; 85007; 85025 ==

== ENCOUNTER → 2024-03-03 09:00 | Outpatient (BNVA) | payer MEDICARE, SELFPAY | PROVIDERS: PCP Family Medicine; Visit Provider Nurse Practitioner Family | DX: D69.6 Thrombocytopenia, unspecified (principal) | CPT/HCPCS: 80053; 85025 ==

== ENCOUNTER → 2024-03-10 09:00 | Outpatient (BNVA) | payer MEDICARE, SELFPAY | PROVIDERS: PCP Family Medicine; Visit Provider Nurse Practitioner Family | DX: D69.6 Thrombocytopenia, unspecified (principal) | CPT/HCPCS: 80053; 85007; 85025 ==

== ENCOUNTER 2024-03-11 08:00 | Oncology outpatient (recurring) (ONCR) | payer MEDICARE, SELFPAY ==
[2024-02-12 07:57] VITALS: BP 138/69; PULSE 78; TEMP 36.3; O2SAT 99
[2024-02-12] MEDS: sodium chloride 0.9% (100 ml) 100 ML 75 ML (08:05)
[2024-02-12] MEDS: acetaminophen 325 mg Tablet 650 MG PO (08:08)
[2024-02-12] MEDS: diphenhydrAMINE 25 mg Capsule PO (08:08)
[2024-02-12] MEDS: hydrocortisone 100 mg/2 mL SDV IVP (08:10)
[2024-02-12 09:51] VITALS: BP 131/66; PULSE 80; RESP 17; TEMP 36.2; O2SAT 95
[2024-02-12 10:05] VITALS: BP 129/68; PULSE 77; RESP 17; TEMP 36.3; O2SAT 96
[2024-02-12 10:10] VITALS: BP 129/68; PULSE 77; RESP 17; TEMP 36.3; O2SAT 96
[2024-02-16 09:12] VITALS: PULSE 89; RESP 18; TEMP 36.3; O2SAT 98
[2024-02-16] MEDS: hydrocortisone 100 mg/2 mL SDV IVP (09:27)
[2024-02-16] MEDS: acetaminophen 325 mg Tablet 650 MG PO (09:27)
[2024-02-16] MEDS: diphenhydrAMINE 25 mg Capsule PO (09:28)
[2024-02-16 10:03] VITALS: BP 106/65; PULSE 88; RESP 18; TEMP 36.7; O2SAT 98
[2024-02-16 10:18] VITALS: BP 118/68; PULSE 82; RESP 18; TEMP 36.6; O2SAT 94
[2024-02-19] MEDS: acetaminophen 325 mg Tablet 650 MG PO (08:42)
[2024-02-19] MEDS: diphenhydrAMINE 25 mg Capsule PO (08:43)
[2024-02-19] MEDS: sodium chloride 0.9% 250 mL Bag 100 ML IV (08:55)
[2024-02-19] MEDS: hydrocortisone 100 mg/2 mL SDV IVP (08:57)
[2024-02-19 09:52] VITALS: BP 119/63; PULSE 76; RESP 16; TEMP 36.2
[2024-02-19 10:14] VITALS: BP 126/66; PULSE 78; RESP 16; TEMP 36.3; O2SAT 97
[2024-02-23 08:59] VITALS: BP 124/66; PULSE 80; RESP 16; TEMP 36.2
[2024-02-23] MEDS: diphenhydrAMINE 25 mg Capsule PO (09:23)
[2024-02-23] MEDS: acetaminophen 325 mg Tablet 650 MG PO (09:23)
[2024-02-23] MEDS: sodium chloride 0.9% (100 ml) 100 ML 75 ML (09:25)
[2024-02-23] MEDS: hydrocortisone 100 mg/2 mL SDV IVP (09:29)
[2024-02-23 09:37] VITALS: BP 103/56; PULSE 83; RESP 17; TEMP 36.3; O2SAT 99
[2024-02-23 10:14] VITALS: BP 122/58; PULSE 86; TEMP 36.3; O2SAT 97
[2024-02-23 10:47] VITALS: BP 129/61; PULSE 77; PULSE 81; RESP 16; RESP 18; TEMP 36.2; TEMP 36.3; O2SAT 97; O2SAT 99
[2024-02-26 08:12] VITALS: BP 137/67; PULSE 87; RESP 17; O2SAT 99
[2024-02-26] MEDS: acetaminophen 325 mg Tablet 650 MG PO (08:14)
[2024-02-26] MEDS: diphenhydrAMINE 25 mg Capsule PO (08:14)
[2024-02-26] MEDS: hydrocortisone 100 mg/2 mL SDV IVP (08:15)
[2024-02-26] MEDS: sodium chloride 0.9% (100 ml) 100 ML 50 ML (08:15)
[2024-02-26 08:53] VITALS: BP 107/60; PULSE 90; TEMP 36.2; O2SAT 98
[2024-02-26 09:12] VITALS: BP 114/56; PULSE 84; O2SAT 97
[2024-03-01 08:48] VITALS: BP 166/66; PULSE 93; RESP 17; O2SAT 99
[2024-03-01 09:00] VITALS: BP 140/74; PULSE 74; RESP 18; TEMP 36.6; O2SAT 98
[2024-03-01] MEDS: diphenhydrAMINE 25 mg Capsule PO ×2 (09:15→14:13)
[2024-03-01] MEDS: acetaminophen 325 mg Tablet 650 MG PO ×2 (09:15→14:11)
[2024-03-01] MEDS: hydrocortisone 100 mg/2 mL SDV IVP ×2 (09:16→14:16)
[2024-03-01 10:10] VITALS: BP 131/69; PULSE 88; RESP 18; TEMP 36.8; O2SAT 98
[2024-03-01 10:20] VITALS: BP 131/69; PULSE 88; RESP 18; TEMP 36.2; O2SAT 98
[2024-03-01] MEDS: sodium chloride 0.9% (100 ml) 100 ML 75 ML (14:14)
[2024-03-01 14:33] VITALS: BP 116/69; PULSE 84; TEMP 36.1; O2SAT 97
[2024-03-01 14:45] VITALS: BP 113/68; PULSE 80; RESP 16; TEMP 36.2; O2SAT 98
[2024-03-08 07:49] VITALS: BP 125/69; PULSE 89; RESP 18; TEMP 36.2; O2SAT 98
[2024-03-08 08:07] LABS: Hematocrit 29.2 % (37-53); Mean Corpuscular HGB Conc 31.5 g/dL (30-55); Mean Corpuscular Volume 92.1 fl (82-101); Red Blood Count 3.17 10^6/uL (3.85-5.65); Red Cell Distribution Width 21.8 % (12.1-15.1); White Blood Count 21.41 10^3/uL (3.29-11.43)
[2024-03-08 08:32] LABS: Platelet Count 8 10^3/cmm (157-399); Slide Review Slide Review Perform
[2024-03-08] MEDS: hydrocortisone 100 mg/2 mL SDV IVP (08:54)
[2024-03-08] MEDS: diphenhydrAMINE 25 mg Capsule PO (08:54)
[2024-03-08] MEDS: acetaminophen 325 mg Tablet 650 MG PO (08:59)
[2024-03-08 09:21] VITALS: BP 105/64; PULSE 90; RESP 18; TEMP 36.3; O2SAT 99
[2024-03-08 09:37] VITALS: BP 115/68; PULSE 84; RESP 18; TEMP 36.3; O2SAT 99
[2024-03-08 09:40] VITALS: BP 115/68; PULSE 82; RESP 18; TEMP 36.3; O2SAT 99
[2024-03-11] MEDS: acetaminophen 325 mg Tablet 650 MG PO (08:41)
[2024-03-11] MEDS: diphenhydrAMINE 25 mg Capsule PO (08:42)
[2024-03-11] MEDS: sodium chloride 0.9% (100 ml) 100 ML 75 ML (08:42)
[2024-03-11] MEDS: hydrocortisone 100 mg/2 mL SDV IVP (08:44)
[2024-03-11 09:29] VITALS: BP 116/72; PULSE 76; RESP 16; TEMP 36.3; O2SAT 94
[2024-03-11 09:42] VITALS: BP 130/69; PULSE 74; RESP 16; TEMP 36.3; O2SAT 97
[2024-03-11 09:50] VITALS: BP 130/69; PULSE 74; RESP 16; TEMP 36.3; O2SAT 97
[2024-03-11 10:05] VITALS: BP 116/64; PULSE 79; RESP 16; TEMP 36.2; O2SAT 99
== END 2024-03-11 23:59 | disposition home or self-care (01) ==
PROVIDERS: PCP Family Medicine; Visit Provider Internal Medicine Medical Oncology
DX: D69.6 Thrombocytopenia, unspecified (principal); Z53.9 Procedure and treatment not carried out, unspecified reason
CPT/HCPCS: 36430; 36591; 85025; 86900; 96374; 96375; J1720; J7050; P9016; P9035

== ENCOUNTER → 2024-03-17 08:30 | Outpatient (BNVA) | payer MEDICARE, SELFPAY | PROVIDERS: PCP Family Medicine; Visit Provider Nurse Practitioner Family | DX: Z95.828 Presence of other vascular implants and grafts (principal); D69.6 Thrombocytopenia, unspecified | CPT/HCPCS: 80053; 85025 ==

== ENCOUNTER → 2024-03-21 09:30 | Outpatient (BNVA) | payer MEDICARE, SELFPAY | PROVIDERS: PCP Family Medicine; Visit Provider Nurse Practitioner Family | DX: D69.6 Thrombocytopenia, unspecified (principal) | CPT/HCPCS: 80053; 85007; 85025 ==

== ENCOUNTER → 2024-03-24 08:43 | Outpatient (BNVA) | payer MEDICARE, SELFPAY | PROVIDERS: PCP Family Medicine; Visit Provider Nurse Practitioner Family | DX: D69.6 Thrombocytopenia, unspecified (principal) | CPT/HCPCS: 80053; 85007; 85025 ==

== ENCOUNTER → 2024-03-28 09:15 | Outpatient (BNVA) | payer MEDICARE, SELFPAY | PROVIDERS: PCP Family Medicine; Visit Provider Nurse Practitioner Family | DX: D69.6 Thrombocytopenia, unspecified (principal); Z95.828 Presence of other vascular implants and grafts | CPT/HCPCS: 80053; 85007; 85025 ==

== ENCOUNTER → 2024-03-31 08:52 | Outpatient (BNVA) | payer MEDICARE, SELFPAY | PROVIDERS: PCP Family Medicine; Visit Provider Internal Medicine Medical Oncology | DX: D69.6 Thrombocytopenia, unspecified (principal) | CPT/HCPCS: 80053; 85025 ==

== ENCOUNTER → 2024-04-04 08:30 | Outpatient (BNVA) | payer MEDICARE, SELFPAY | PROVIDERS: PCP Family Medicine; Visit Provider Internal Medicine Medical Oncology | DX: D69.6 Thrombocytopenia, unspecified (principal) | CPT/HCPCS: 80053; 85007; 85025 ==

== ENCOUNTER → 2024-04-07 08:29 | Outpatient (BNVA) | payer MEDICARE, SELFPAY | PROVIDERS: PCP Family Medicine; Visit Provider Nurse Practitioner Family | DX: D69.6 Thrombocytopenia, unspecified (principal) | CPT/HCPCS: 80053; 85025 ==

== ENCOUNTER 2024-04-08 07:39 | Oncology outpatient (recurring) (ONCR) | payer MEDICARE, SELFPAY ==
[2024-03-14 16:10] LABS: Hematocrit 28.2 % (37-53); Mean Corpuscular HGB Conc 32.3 g/dL (30-55); Mean Corpuscular Hemoglobin 29.1 pg (27-33); Mean Corpuscular Volume 90.1 fl (82-101); Red Blood Count 3.13 10^6/uL (3.85-5.65); Red Cell Distribution Width 21.9 % (12.1-15.1); White Blood Count 19.76 10^3/uL (3.29-11.43)
[2024-03-14 16:40] LABS: Alanine Aminotransferase 10 U/L (0-41); Alkaline Phosphatase 89 U/L (40-130); Anion Gap 14.6 (5-19); Aspartate Amino Transferase 13 U/L (0-40); Blood Urea Nitrogen 16 mg/dL (8-23); Carbon Dioxide 26 mmol/L (22-29); Chloride 95 mmol/L (98-107); Creatinine Clr Calc Pharmacy 51.7111; Globulin 3.2 g/dL (1.3-4.6); Glucose 333 mg/dL (65-115); Osmolality Calculated 286 mOsm/kg (285-295); Potassium 4.6 mmol/L (3.5-5.1); Sodium 131 mmol/L (136-145); Total Bilirubin 0.6 mg/dL (0.15-1.2); Total Protein 7.2 g/dL (6.6-8.7)
[2024-03-14 17:03] LABS: Slide Review Slide Review Perform
[2024-03-14 17:07] LABS: Absolute Segmented Neutrophil 9.9 10/cmm (1.6-7.1); Band Neutrophils Absolute 2.6 10^3/cmm (0.0-1.2); Corrected White Blood Count 17.3 10^3/cmm (4.8-10.8); Lymphocytes 20 %; Monocytes Absolute 0.4 10^3/cmm (0.1-0.6); Segmented Neutrophils 50 %; Total Cells Counted 100 (0-100)
[2024-03-14 17:08] LABS: Eosinophils 0 %
[2024-03-14 17:09] LABS: Absolute Neutrophil 12.4 10^3/cmm (1.4-6.5); Anisocytosis 2+; Platelet Estimate Decreased (Normal)
[2024-03-15 08:20] LABS: Platelet Count 7 10^3/cmm (157-399)
[2024-03-15] MEDS: diphenhydrAMINE 25 mg Capsule PO (09:12)
[2024-03-15] MEDS: sodium chloride 0.9% (100 ml) 100 ML 75 ML (09:12)
[2024-03-15] MEDS: acetaminophen 325 mg Tablet 650 MG PO (09:12)
[2024-03-15] MEDS: hydrocortisone 100 mg/2 mL SDV IVP (09:13)
[2024-03-15 09:56] VITALS: BP 108/58; PULSE 84; RESP 18; TEMP 36.3; O2SAT 98
[2024-03-15 10:20] VITALS: BP 126/58; BP 126/78; PULSE 89; RESP 18; TEMP 36.3; O2SAT 98
[2024-03-18] MEDS: sodium chloride 0.9% (100 ml) 100 ML 75 ML (08:22)
[2024-03-18] MEDS: hydrocortisone 100 mg/2 mL SDV IVP (08:24)
[2024-03-18] MEDS: acetaminophen 325 mg Tablet 650 MG PO (08:25)
[2024-03-18] MEDS: diphenhydrAMINE 25 mg Capsule PO (08:26)
[2024-03-18 08:39] VITALS: BP 100/60; PULSE 97; RESP 18; TEMP 36.3; O2SAT 97
[2024-03-18 09:26] VITALS: BP 109/56; PULSE 90; TEMP 36.3; O2SAT 97
[2024-03-18 09:46] VITALS: BP 108/62; PULSE 84; TEMP 36.2; O2SAT 98
[2024-03-22] MEDS: sodium chloride 0.9% (100 ml) 100 ML 75 ML (08:28)
[2024-03-22] MEDS: hydrocortisone 100 mg/2 mL SDV IVP (08:31)
[2024-03-22] MEDS: acetaminophen 325 mg Tablet 650 MG PO (08:32)
[2024-03-22] MEDS: diphenhydrAMINE 25 mg Capsule PO (08:33)
[2024-03-22 08:42] VITALS: BP 102/58; PULSE 92; RESP 18; TEMP 36.2; O2SAT 95
[2024-03-22 09:18] VITALS: BP 106/51; PULSE 87; RESP 16; TEMP 36.2; O2SAT 98
[2024-03-22 09:33] VITALS: BP 126/66; PULSE 77; RESP 16; TEMP 36.1; O2SAT 97
[2024-03-22 09:35] VITALS: BP 122/64; PULSE 77; RESP 16; TEMP 36.1; O2SAT 97
[2024-03-22 09:40] VITALS: BP 122/64; PULSE 77; RESP 16; TEMP 36.1; O2SAT 97
[2024-03-25 08:00] VITALS: BP 110/66; PULSE 94; RESP 17; TEMP 36.1; O2SAT 99
[2024-03-25] MEDS: diphenhydrAMINE 25 mg Capsule PO (08:05)
[2024-03-25] MEDS: acetaminophen 325 mg Tablet 650 MG PO (08:05)
[2024-03-25] MEDS: hydrocortisone 100 mg/2 mL SDV IVP (08:07)
[2024-03-25] MEDS: sodium chloride 0.9% 250 mL Bag IV (08:07)
[2024-03-25 08:46] VITALS: BP 99/54; PULSE 85; RESP 16; TEMP 36.2; O2SAT 98
[2024-03-25 09:25] VITALS: BP 121/63; PULSE 80; RESP 16; TEMP 36.2; O2SAT 97
[2024-03-25 09:26] VITALS: BP 121/63; PULSE 80; RESP 16; TEMP 36.2; O2SAT 97
--- NOTE | 2024-03-28 15:18 | PC.NURSE ---
Dr. Lowe reviewed patient's lab results and let this nurse know that his Hgb is stable at 8.90. Patient was here on Thursday for transfusion of platelets and was aware of his results. Patient will be here tomorrow for another plt transfusion and I will let him know what Dr. Lowe had said.
[2024-03-29] MEDS: sodium chloride 0.9% 250 mL Bag 100 ML IV (09:01)
[2024-03-29] MEDS: diphenhydrAMINE 25 mg Capsule PO (09:01)
[2024-03-29] MEDS: acetaminophen 325 mg Tablet 650 MG PO (09:01)
[2024-03-29] MEDS: hydrocortisone 100 mg/2 mL SDV IVP (09:02)
[2024-03-29 09:32] VITALS: BP 104/61; PULSE 87; RESP 16; TEMP 36.2; O2SAT 99
[2024-03-29 09:55] VITALS: BP 115/59; PULSE 82; RESP 17; TEMP 36.1; O2SAT 96
[2024-04-01 07:50] VITALS: BP 125/66; PULSE 86; RESP 16; TEMP 36.1; O2SAT 99
[2024-04-01] MEDS: acetaminophen 325 mg Tablet 650 MG PO (07:59)
[2024-04-01] MEDS: diphenhydrAMINE 25 mg Capsule PO (08:00)
[2024-04-01] MEDS: hydrocortisone 100 mg/2 mL SDV IVP (08:00)
[2024-04-01 08:40] VITALS: BP 123/66; PULSE 83; RESP 16; TEMP 36.1; O2SAT 97
[2024-04-01 08:55] VITALS: BP 131/68; PULSE 82; RESP 16; TEMP 36.2; O2SAT 98
[2024-04-01 09:00] VITALS: BP 131/65; PULSE 82; RESP 16; TEMP 36.2; O2SAT 98
[2024-04-05] MEDS: diphenhydrAMINE 25 mg Capsule PO (09:12)
[2024-04-05] MEDS: acetaminophen 325 mg Tablet 650 MG PO (09:12)
[2024-04-05] MEDS: hydrocortisone 100 mg/2 mL SDV IVP (09:13)
[2024-04-05] MEDS: sodium chloride 0.9% (100 ml) 100 ML 75 ML (09:16)
[2024-04-05 09:20] VITALS: BP 116/60; PULSE 91; TEMP 36.2; O2SAT 97
[2024-04-05 10:09] VITALS: BP 114/73; PULSE 75; TEMP 36.1; O2SAT 97
[2024-04-05 10:42] VITALS: BP 123/69; PULSE 87; TEMP 36.2; O2SAT 96
[2024-04-08 08:05] VITALS: BP 115/64; PULSE 80; RESP 16; TEMP 36.2; O2SAT 99
[2024-04-08] MEDS: hydrocortisone 100 mg/2 mL SDV IVP (08:07)
[2024-04-08] MEDS: acetaminophen 325 mg Tablet 650 MG PO (08:07)
[2024-04-08] MEDS: diphenhydrAMINE 25 mg Capsule PO (08:07)
[2024-04-08 08:44] VITALS: BP 120/64; PULSE 80; RESP 16; TEMP 36.2; O2SAT 96
[2024-04-08 08:56] VITALS: BP 136/69; PULSE 80; RESP 16; TEMP 36.3; O2SAT 97
[2024-04-08 09:05] VITALS: BP 136/69; PULSE 80; RESP 16; TEMP 36.3; O2SAT 97
== END 2024-04-10 23:59 | disposition home or self-care (01) ==
PROVIDERS: PCP Family Medicine; Visit Provider Internal Medicine Medical Oncology
DX: D69.6 Thrombocytopenia, unspecified
CPT/HCPCS: 36430; 80053; 85007; 85025; 86850; 86900; 96374; 96375; J1720; J7050; P9016; P9035

== ENCOUNTER → 2024-04-11 09:00 | Outpatient (BNVA) | payer MEDICARE, SELFPAY | PROVIDERS: PCP Family Medicine; Visit Provider Internal Medicine Medical Oncology | DX: D69.6 Thrombocytopenia, unspecified (principal) | CPT/HCPCS: 80053; 85007; 85025; 86850; 86900 ==

== ENCOUNTER → 2024-04-18 09:00 | Outpatient (BNVA) | payer MEDICARE, SELFPAY | PROVIDERS: PCP Family Medicine; Visit Provider Nurse Practitioner Family | DX: D69.6 Thrombocytopenia, unspecified (principal) | CPT/HCPCS: 80053; 85007; 85025 ==

== ENCOUNTER → 2024-04-21 08:30 | Outpatient (BNVA) | payer MEDICARE, SELFPAY | PROVIDERS: PCP Family Medicine; Visit Provider Nurse Practitioner Family | DX: D69.6 Thrombocytopenia, unspecified (principal) | CPT/HCPCS: 80053; 85025 ==

== ENCOUNTER → 2024-04-25 08:50 | Outpatient (BNVA) | payer MEDICARE, SELFPAY | PROVIDERS: PCP Family Medicine; Visit Provider Nurse Practitioner Family | DX: D69.6 Thrombocytopenia, unspecified (principal) | CPT/HCPCS: 80053; 85007; 85025 ==

== ENCOUNTER → 2024-04-28 08:30 | Outpatient (BNVA) | payer MEDICARE, SELFPAY | PROVIDERS: PCP Family Medicine; Visit Provider Internal Medicine Medical Oncology | DX: D69.6 Thrombocytopenia, unspecified (principal) | CPT/HCPCS: 80053; 85025 ==

== ENCOUNTER → 2024-05-02 09:00 | Outpatient (BNVA) | payer MEDICARE, SELFPAY | PROVIDERS: PCP Family Medicine; Visit Provider Nurse Practitioner Family | DX: D69.6 Thrombocytopenia, unspecified (principal) | CPT/HCPCS: 80053; 85007; 85025 ==

== ENCOUNTER 2024-05-03 08:38 | Oncology outpatient (recurring) (ONCR) | payer MEDICARE, SELFPAY ==
[2024-04-11 16:15] LABS: Hematocrit 30.3 % (37-53); Mean Corpuscular HGB Conc 29.7 g/dL (30-55); Mean Corpuscular Hemoglobin 29.6 pg (27-33); Mean Corpuscular Volume 99.7 fl (82-101); Red Blood Count 3.04 10^6/uL (3.85-5.65); Red Cell Distribution Width 23.1 % (12.1-15.1); White Blood Count 17.43 10^3/uL (3.29-11.43)
[2024-04-11 16:25] LABS: Platelet Count 12 10^3/cmm (157-399); Slide Review Slide Review Perform
[2024-04-11 16:35] LABS: Alanine Aminotransferase 13 U/L (0-41); Albumin Level 3.9 g/dL (3.5-5.2); Alkaline Phosphatase 86 U/L (40-130); Anion Gap 14.4 (5-19); Aspartate Amino Transferase 19 U/L (0-40); Blood Urea Nitrogen 16 mg/dL (8-23); Calcium 8.5 mg/dL (8.5-10.5); Carbon Dioxide 26 mmol/L (22-29); Chloride 98 mmol/L (98-107); Globulin 3.1 g/dL (1.3-4.6); Glucose 423 mg/dL (65-115); Osmolality Calculated 297 mOsm/kg (285-295); Potassium 4.4 mmol/L (3.5-5.1); Sodium 134 mmol/L (136-145); Total Bilirubin 0.6 mg/dL (0.15-1.2)
[2024-04-11 16:43] LABS: Total Cells Counted 100 (0-100)
[2024-04-11 16:46] LABS: Lymphocytes 6 %
[2024-04-11 16:47] LABS: Eosinophils 0 %; Monocytes Absolute 0.5 10^3/cmm (0.1-0.6)
[2024-04-11 16:50] LABS: Basophils Absolute 0.3 10^3/cmm (0.0-0.2)
[2024-04-11 16:51] LABS: Corrected White Blood Count 15.8 10^3/cmm (4.8-10.8); Platelet Estimate Decreased (Normal)
[2024-04-11 16:53] LABS: Stomatocytes Trace
[2024-04-11 16:54] LABS: Poikilocytosis Trace; Polychromasia 1+
[2024-04-11 16:57] LABS: Anisocytosis Trace; Band Neutrophils Absolute 3.3 10^3/cmm (0.0-1.2)
[2024-04-11 16:58] LABS: Absolute Neutrophil 11.5 10^3/cmm (1.4-6.5); Absolute Segmented Neutrophil 8.2 10/cmm (1.6-7.1); Segmented Neutrophils 47 %
[2024-04-12] MEDS: diphenhydrAMINE 25 mg Capsule PO (09:05)
[2024-04-12] MEDS: acetaminophen 325 mg Tablet 650 MG PO (09:06)
[2024-04-12] MEDS: hydrocortisone 100 mg/2 mL SDV IVP (09:09)
[2024-04-12 09:14] VITALS: BP 108/64; PULSE 82; RESP 18; TEMP 36.6; O2SAT 97
[2024-04-12 09:58] VITALS: BP 108/72; PULSE 84; RESP 18; TEMP 36.1; O2SAT 96
[2024-04-12 10:20] VITALS: BP 120/78; PULSE 80; RESP 18; TEMP 36.6; O2SAT 97
[2024-04-15 07:59] VITALS: BP 128/66; PULSE 91; RESP 17; TEMP 36.5; O2SAT 96
[2024-04-15 08:45] LABS: Platelet Count 9 10^3/cmm (157-399)
[2024-04-15] MEDS: diphenhydrAMINE 25 mg Capsule PO (09:02)
[2024-04-15] MEDS: acetaminophen 325 mg Tablet 650 MG PO (09:02)
[2024-04-15] MEDS: sodium chloride 0.9% 250 mL Bag 100 ML IV (09:04)
[2024-04-15] MEDS: hydrocortisone 100 mg/2 mL SDV IVP (09:07)
[2024-04-15 09:48] VITALS: BP 131/68; PULSE 84; RESP 17; TEMP 36.2; O2SAT 99
[2024-04-15 10:01] VITALS: BP 131/65; PULSE 85; RESP 17; TEMP 36.1; O2SAT 98
[2024-04-15 10:08] VITALS: BP 131/64; PULSE 85; RESP 17; TEMP 36.1; O2SAT 98
[2024-04-19] MEDS: hydrocortisone 100 mg/2 mL SDV IVP (09:05)
[2024-04-19] MEDS: acetaminophen 325 mg Tablet 650 MG PO (09:05)
[2024-04-19] MEDS: diphenhydrAMINE 25 mg Capsule PO (09:06)
[2024-04-19 09:15] VITALS: BP 112/56; PULSE 84; RESP 18; TEMP 36.1; O2SAT 98
[2024-04-19 09:34] VITALS: BP 107/56; RESP 18; TEMP 36.1; O2SAT 98
[2024-04-19 10:00] VITALS: BP 124/78; PULSE 84; RESP 17; TEMP 36.6; O2SAT 98
[2024-04-22 07:55] VITALS: BP 120/57; PULSE 89; RESP 16; TEMP 36.4; O2SAT 98
[2024-04-22 08:03] LABS: Hematocrit 26.9 % (37-53); Mean Corpuscular HGB Conc 30.9 g/dL (30-55); Mean Corpuscular Hemoglobin 30.2 pg (27-33); Mean Corpuscular Volume 97.8 fl (82-101); Red Blood Count 2.75 10^6/uL (3.85-5.65); Red Cell Distribution Width 22.4 % (12.1-15.1); White Blood Count 22.16 10^3/uL (3.29-11.43)
[2024-04-22 08:23] LABS: Platelet Count 11 10^3/cmm (157-399); Slide Review Slide Review Perform
[2024-04-22 08:24] LABS: Absolute Eosinophils 0.2 10^3/cmm (0.0-0.7); Absolute Neutrophil 13.5 10^3/cmm (1.4-6.5); Absolute Segmented Neutrophil 11.7 10/cmm (1.6-7.1); Band Neutrophils Absolute 1.8 10^3/cmm (0.0-1.2); Eosinophils 1 %; Lymphocytes 9 %; Lymphocytes Absolute 2.2 10^3/cmm (1.2-3.4); Macrocytosis 2+; Monocytes Absolute 0.4 10^3/cmm (0.1-0.6); Ovalocytes 2+; Platelet Estimate Decreased (Normal); Polychromasia 2+; Segmented Neutrophils 53 %; Total Cells Counted 100 (0-100)
[2024-04-22] MEDS: sodium chloride 0.9% (100 ml) 100 ML (08:28)
[2024-04-22] MEDS: hydrocortisone 100 mg/2 mL SDV IVP (08:29)
[2024-04-22] MEDS: diphenhydrAMINE 25 mg Capsule PO (08:29)
[2024-04-22] MEDS: acetaminophen 325 mg Tablet 650 MG PO (08:29)
[2024-04-22 09:09] VITALS: BP 124/65; PULSE 87; RESP 16; TEMP 36; O2SAT 95
[2024-04-22 09:23] VITALS: BP 143/70; PULSE 86; RESP 16; TEMP 36; O2SAT 99
[2024-04-22 09:24] VITALS: BP 143/70; PULSE 86; RESP 16; TEMP 36; O2SAT 98
[2024-04-26 08:42] VITALS: BP 124/72; PULSE 100; RESP 18; TEMP 36.1; O2SAT 98
[2024-04-26] MEDS: hydrocortisone 100 mg/2 mL SDV IVP (08:57)
[2024-04-26] MEDS: acetaminophen 325 mg Tablet 650 MG PO (08:57)
[2024-04-26] MEDS: diphenhydrAMINE 25 mg Capsule PO (08:57)
[2024-04-26 09:35] VITALS: PULSE 100; RESP 18; TEMP 36.1; O2SAT 98
[2024-04-26 10:00] VITALS: BP 124/64; PULSE 84; PULSE 96; RESP 17; TEMP 36.1; O2SAT 98; O2SAT 99
--- NOTE | 2024-04-26 10:11 | XRR_ITS ---
PROCEDURE INFORMATION: Exam: XR Chest Exam date and time: 04/26/2024 11:04 AM Age: 79 years old Clinical indication: Shortness of breath; Patient HX: F/u on possible asbestos exposure, congestion; Additional info: Chest congestion; Shortness of breath TECHNIQUE: Imaging protocol: Radiologic exam of the chest. Views: 2 views. COMPARISON: CR XR chest 1V portable [id number] 09/11/2023 2:18 PM FINDINGS: Tubes, catheters and devices: Unchanged left chest port projecting in satisfactory position. Lungs: Unchanged scarring left lower lung. Otherwise, unremarkable. Pleural spaces: Unremarkable. No pleural effusion. No pneumothorax. Heart/Mediastinum: Normal heart size. Findings of coronary artery bypass surgery are again noted. Diaphragm: Unchanged mild elevation of the left hemidiaphragm. Bones/joints: Nothing acute. No change. XR/XR chest 2V* [id number] IMPRESSION: No acute disease.
[2024-04-29] MEDS: diphenhydrAMINE 25 mg Capsule PO (07:56)
[2024-04-29] MEDS: acetaminophen 325 mg Tablet 650 MG PO (07:57)
[2024-04-29] MEDS: sodium chloride 0.9% (100 ml) 100 ML 75 ML (07:58)
[2024-04-29] MEDS: hydrocortisone 100 mg/2 mL SDV IVP (08:03)
[2024-04-29 08:08] VITALS: BP 125/68; PULSE 86; O2SAT 97
[2024-04-29 08:58] VITALS: BP 97/56; PULSE 91; TEMP 36.1; O2SAT 94
[2024-04-29 09:10] VITALS: BP 114/57; PULSE 89; RESP 16; TEMP 36.2; O2SAT 97
[2024-04-29 09:22] VITALS: BP 114/57; PULSE 89; RESP 17; TEMP 36.2; O2SAT 97
[2024-05-03] VITALS (12 sets, daily range): BP systolic 101–176; BP diastolic 50–77; PULSE 76–95; RESP 16–18; TEMP 36.1–36.5; O2SAT 86–99
[2024-05-03] MEDS: sodium chloride 0.9% 250 mL Bag IV (10:22)
[2024-05-03] MEDS: acetaminophen 325 mg Tablet 650 MG PO (10:23)
[2024-05-03] MEDS: diphenhydrAMINE 25 mg Capsule PO (10:23)
[2024-05-03] MEDS: hydrocortisone 100 mg/2 mL SDV IVP (15:32)
== END 2024-05-03 23:59 | disposition home or self-care (01) ==
PROVIDERS: Nurse Practitioner Family; PCP Family Medicine; Visit Provider Internal Medicine Medical Oncology
DX: Z53.9 Procedure and treatment not carried out, unspecified reason; D69.6 Thrombocytopenia, unspecified; Z79.899 Other long term (current) drug therapy
CPT/HCPCS: 36430; 71046; 80053; 85007; 85025; 85049; 86850; 86900; 86920; 96374; 96375; J1720; J7050; P9016; P9035

== ENCOUNTER → 2024-05-05 08:30 | Outpatient (BNVA) | payer MEDICARE, SELFPAY | PROVIDERS: PCP Family Medicine; Visit Provider Nurse Practitioner Family | DX: D69.6 Thrombocytopenia, unspecified (principal) | CPT/HCPCS: 80053; 85025 ==

== ENCOUNTER → 2024-05-09 09:00 | Outpatient (BNVA) | payer MEDICARE, SELFPAY | PROVIDERS: PCP Family Medicine; Visit Provider Nurse Practitioner Family | DX: D69.6 Thrombocytopenia, unspecified (principal) | CPT/HCPCS: 80053; 85007; 85025 ==

== ENCOUNTER 2024-05-10 08:42 | Oncology outpatient (recurring) (ONCR) | payer MEDICARE, SELFPAY ==
[2024-05-06] MEDS: sodium chloride 0.9% 250 mL Bag IV (07:59)
[2024-05-06] MEDS: diphenhydrAMINE 25 mg Capsule PO (08:00)
[2024-05-06] MEDS: hydrocortisone 100 mg/2 mL SDV IVP (08:01)
[2024-05-06] MEDS: acetaminophen 325 mg Tablet 650 MG PO (08:01)
[2024-05-06 08:44] VITALS: BP 121/56; PULSE 89; RESP 16; TEMP 36.1; O2SAT 97
[2024-05-06 08:59] VITALS: BP 152/75; PULSE 77; RESP 16; TEMP 36.2; O2SAT 95
[2024-05-10] MEDS: acetaminophen 325 mg Tablet 650 MG PO (09:19)
[2024-05-10] MEDS: diphenhydrAMINE 25 mg Capsule PO (09:19)
[2024-05-10] MEDS: hydrocortisone 100 mg/2 mL SDV IVP (09:20)
[2024-05-10 09:46] VITALS: BP 122/62; PULSE 93; RESP 18; TEMP 36.1; O2SAT 98
[2024-05-10 10:10] VITALS: BP 122/74; PULSE 89; RESP 18; TEMP 36.2; O2SAT 98
[2024-05-10 10:20] VITALS: BP 122/68; PULSE 98; RESP 17; TEMP 36.1; O2SAT 98
== END 2024-05-11 23:59 | disposition home or self-care (01) ==
PROVIDERS: PCP Family Medicine; Visit Provider Internal Medicine Medical Oncology
DX: Z53.9 Procedure and treatment not carried out, unspecified reason; D69.6 Thrombocytopenia, unspecified; Z79.899 Other long term (current) drug therapy
CPT/HCPCS: 36430; 86850; 86900; 86920; 96374; J1720; J7050; P9016; P9035; P9055

== ENCOUNTER → 2024-05-12 08:33 | Outpatient (BNVA) | payer MEDICARE, SELFPAY | PROVIDERS: PCP Family Medicine; Visit Provider Internal Medicine Medical Oncology | DX: D69.6 Thrombocytopenia, unspecified (principal) | CPT/HCPCS: 80053; 85025 ==

== ENCOUNTER → 2024-05-16 08:28 | Outpatient (BNVA) | payer MEDICARE, SELFPAY | PROVIDERS: PCP Family Medicine; Visit Provider Nurse Practitioner Family | DX: D69.6 Thrombocytopenia, unspecified (principal) | CPT/HCPCS: 80053; 85007; 85025 ==

== ENCOUNTER → 2024-05-19 08:30 | Outpatient (BNVA) | payer MEDICARE, SELFPAY | PROVIDERS: PCP Family Medicine; Visit Provider Nurse Practitioner Family | DX: D69.6 Thrombocytopenia, unspecified (principal) | CPT/HCPCS: 80053; 85025 ==

== ENCOUNTER → 2024-05-23 09:00 | Outpatient (BNVA) | payer MEDICARE, SELFPAY | PROVIDERS: PCP Family Medicine; Referring Provider Internal Medicine Medical Oncology; Visit Provider Nurse Practitioner Family | DX: D69.6 Thrombocytopenia, unspecified (principal) | CPT/HCPCS: 80053; 85007; 85025 ==

== ENCOUNTER → 2024-05-26 08:30 | Outpatient (BNVA) | payer MEDICARE, SELFPAY | PROVIDERS: PCP Family Medicine; Visit Provider Internal Medicine Medical Oncology | DX: D69.6 Thrombocytopenia, unspecified (principal) | CPT/HCPCS: 80053; 85025 ==

== ENCOUNTER → 2024-05-30 09:00 | Outpatient (BNVA) | payer MEDICARE, SELFPAY | PROVIDERS: PCP Family Medicine; Visit Provider Nurse Practitioner Family | DX: D69.6 Thrombocytopenia, unspecified (principal) | CPT/HCPCS: 80053; 85007; 85025 ==

== ENCOUNTER → 2024-06-02 09:00 | Outpatient (BNVA) | payer MEDICARE, SELFPAY | PROVIDERS: PCP Family Medicine; Visit Provider Nurse Practitioner Family | DX: D69.6 Thrombocytopenia, unspecified (principal) | CPT/HCPCS: 80053; 85007; 85025 ==

== ENCOUNTER → 2024-06-06 08:30 | Outpatient (BNVA) | payer MEDICARE, SELFPAY | PROVIDERS: PCP Family Medicine; Visit Provider Nurse Practitioner Family | DX: D69.6 Thrombocytopenia, unspecified (principal) | CPT/HCPCS: 80053; 85007; 85025 ==

== ENCOUNTER 2024-06-07 08:22 | Oncology outpatient (recurring) (ONCR) | payer MEDICARE, SELFPAY ==
[2024-05-13] MEDS: sodium chloride 0.9% 250 mL Bag IV (08:36)
[2024-05-13] MEDS: diphenhydrAMINE 25 mg Capsule PO (08:37)
[2024-05-13] MEDS: acetaminophen 325 mg Tablet 650 MG PO (08:37)
[2024-05-13] MEDS: hydrocortisone 100 mg/2 mL SDV IVP (08:37)
[2024-05-13 09:41] VITALS: BP 125/57; PULSE 80; RESP 16; TEMP 36.2; O2SAT 99
[2024-05-13 09:59] VITALS: BP 129/63; PULSE 80; RESP 16; TEMP 36.1; O2SAT 96
[2024-05-17] MEDS: acetaminophen 325 mg Tablet 650 MG PO (10:40)
[2024-05-17] MEDS: diphenhydrAMINE 25 mg Capsule PO (10:40)
[2024-05-17] MEDS: hydrocortisone 100 mg/2 mL SDV IVP (10:41)
[2024-05-17 11:06] VITALS: BP 115/57; PULSE 89; RESP 18; TEMP 36.1; O2SAT 99
[2024-05-17 11:10] VITALS: BP 115/57; PULSE 97; RESP 18; TEMP 36.1; O2SAT 99
[2024-05-17 11:14] VITALS: BP 115/57; PULSE 89; RESP 18; TEMP 36.1; O2SAT 98
[2024-05-17 11:25] VITALS: BP 123/57; PULSE 89; RESP 16; RESP 18; TEMP 36.2; O2SAT 99
[2024-05-20] MEDS: sodium chloride 0.9% (100 ml) 100 ML 75 ML (08:13)
[2024-05-20] MEDS: hydrocortisone 100 mg/2 mL SDV IVP (08:15)
[2024-05-20] MEDS: diphenhydrAMINE 25 mg Capsule PO (08:17)
[2024-05-20] MEDS: acetaminophen 325 mg Tablet 650 MG PO (08:17)
[2024-05-20 08:23] VITALS: BP 106/61; PULSE 91; RESP 17; TEMP 36.2; O2SAT 97
[2024-05-20 09:15] VITALS: BP 120/63; PULSE 89; RESP 17; TEMP 36.2; O2SAT 97
[2024-05-20 09:25] VITALS: BP 129/63; PULSE 86; RESP 17; TEMP 36.1; O2SAT 97
[2024-05-20 09:36] VITALS: BP 129/63; PULSE 86; RESP 17; TEMP 36.1; O2SAT 97
[2024-05-24] VITALS (13 sets, daily range): BP systolic 109–161; BP diastolic 62–96; PULSE 81–88; RESP 16–18; TEMP 35.8–37.2; O2SAT 96–99
[2024-05-24] MEDS: hydrocortisone 100 mg/2 mL SDV IVP (08:23)
[2024-05-24] MEDS: diphenhydrAMINE 25 mg Capsule PO (08:24)
[2024-05-24] MEDS: acetaminophen 325 mg Tablet 650 MG PO (08:24)
--- NOTE | 2024-05-26 11:40 | PC.NURSE ---
05/24/24 Patient refused to take any IV lasix during his blood transfusions. Education given
[2024-05-27 08:12] VITALS: BP 149/70; PULSE 85; RESP 17; TEMP 36; O2SAT 96
[2024-05-27] MEDS: acetaminophen 325 mg Tablet 650 MG PO (08:32)
[2024-05-27] MEDS: diphenhydrAMINE 25 mg Capsule PO (08:32)
[2024-05-27] MEDS: sodium chloride 0.9% (100 ml) 100 ML 75 ML (08:34)
[2024-05-27] MEDS: hydrocortisone 100 mg/2 mL SDV IVP (08:37)
[2024-05-27 09:43] VITALS: BP 147/70; PULSE 78; RESP 17; TEMP 36.1; O2SAT 96
[2024-05-27 09:55] VITALS: BP 155/71; PULSE 79; RESP 17; TEMP 36.1; O2SAT 98
[2024-05-27 10:04] VITALS: BP 155/71; PULSE 79; RESP 17; TEMP 36.1; O2SAT 98
[2024-05-31] MEDS: diphenhydrAMINE 25 mg Capsule PO (09:30)
[2024-05-31] MEDS: acetaminophen 325 mg Tablet 650 MG PO (09:30)
[2024-05-31] MEDS: hydrocortisone 100 mg/2 mL SDV IVP (09:31)
[2024-05-31 09:35] VITALS: BP 122/74; PULSE 99; RESP 18; TEMP 36.1; O2SAT 99
[2024-05-31 10:22] VITALS: BP 127/68; PULSE 99; RESP 18; TEMP 36.2; O2SAT 99
[2024-05-31 10:58] VITALS: BP 124/72; PULSE 90; RESP 18; TEMP 36.2; O2SAT 99
[2024-05-31 11:14] VITALS: BP 120/74; PULSE 97; RESP 18; TEMP 36.2; O2SAT 99
[2024-05-31 11:21] VITALS: BP 120/74; PULSE 78; RESP 16; TEMP 37; O2SAT 96
[2024-06-03] MEDS: diphenhydrAMINE 25 mg Capsule PO (08:05)
[2024-06-03] MEDS: acetaminophen 325 mg Tablet 650 MG PO (08:05)
[2024-06-03] MEDS: hydrocortisone 100 mg/2 mL SDV IVP (08:05)
[2024-06-03 08:07] VITALS: BP 130/69; PULSE 77; RESP 16; TEMP 36.1; O2SAT 99
[2024-06-03 08:36] VITALS: BP 124/65; PULSE 83; RESP 16; TEMP 36.1; O2SAT 98
[2024-06-03 08:46] VITALS: BP 117/61; PULSE 83; RESP 16; TEMP 36.1; O2SAT 99
[2024-06-03 09:30] VITALS: BP 108/64; PULSE 87; RESP 18; TEMP 36.2; O2SAT 99
[2024-06-07 08:41] VITALS: BP 123/71; PULSE 89; RESP 18; TEMP 36.1; O2SAT 98
[2024-06-07] MEDS: hydrocortisone 100 mg/2 mL SDV IVP (08:56)
[2024-06-07] MEDS: acetaminophen 325 mg Tablet 650 MG PO (08:56)
[2024-06-07] MEDS: diphenhydrAMINE 25 mg Capsule PO (08:57)
[2024-06-07 09:28] VITALS: BP 124/59; PULSE 97; RESP 18; TEMP 36.1; O2SAT 98
[2024-06-07 09:50] VITALS: BP 108/64; PULSE 89; RESP 18; TEMP 36.1; O2SAT 98
[2024-06-07 10:00] VITALS: BP 108/64; PULSE 98; RESP 18; TEMP 36.2; O2SAT 98
== END 2024-06-07 23:59 | disposition home or self-care (01) ==
PROVIDERS: PCP Family Medicine; Visit Provider Internal Medicine Medical Oncology
DX: Z53.9 Procedure and treatment not carried out, unspecified reason (principal); D69.6 Thrombocytopenia, unspecified; Z79.899 Other long term (current) drug therapy
CPT/HCPCS: 36430; 86850; 86900; 86920; 96374; 96375; J1720; J7050; P9016; P9035; P9040; P9055

== ENCOUNTER → 2024-06-09 09:30 | Outpatient (BNVA) | payer MEDICARE, SELFPAY | PROVIDERS: PCP Family Medicine; Visit Provider Nurse Practitioner Family | DX: D69.6 Thrombocytopenia, unspecified (principal) | CPT/HCPCS: 80053; 85025 ==

== ENCOUNTER 2024-06-10 07:34 | Oncology outpatient (recurring) (ONCR) | payer MEDICARE, SELFPAY ==
[2024-06-10] VITALS (13 sets, daily range): BP systolic 114–168; BP diastolic 58–73; PULSE 73–86; RESP 16–17; TEMP 35.9–36.2; O2SAT 79–99
[2024-06-10] MEDS: hydrocortisone 100 mg/2 mL SDV IVP (08:18)
[2024-06-10] MEDS: sodium chloride 0.9% 250 mL Bag IV (08:18)
[2024-06-10] MEDS: diphenhydrAMINE 25 mg Capsule PO (08:20)
[2024-06-10] MEDS: acetaminophen 325 mg Tablet 650 MG PO (08:20)
== END 2024-06-11 23:59 | disposition home or self-care (01) ==
LOC: ONCMED 07:34
PROVIDERS: PCP Family Medicine; Visit Provider Internal Medicine Medical Oncology
DX: D69.6 Thrombocytopenia, unspecified; Z79.899 Other long term (current) drug therapy
CPT/HCPCS: 36430; 86850; 86900; 86920; 96375; J1720; J7050; P9016; P9035

== ENCOUNTER → 2024-06-16 08:40 | Outpatient (BNVA) | payer MEDICARE, SELFPAY | PROVIDERS: PCP Family Medicine; Visit Provider Internal Medicine Medical Oncology | DX: D69.6 Thrombocytopenia, unspecified (principal) | CPT/HCPCS: 80053; 85025 ==

== ENCOUNTER → 2024-06-20 09:00 | Outpatient (BNVA) | payer MEDICARE, SELFPAY | PROVIDERS: PCP Family Medicine; Visit Provider Nurse Practitioner Family | DX: D69.6 Thrombocytopenia, unspecified (principal) | CPT/HCPCS: 80053; 85007; 85025 ==

== ENCOUNTER → 2024-06-23 09:20 | Outpatient (BNVA) | payer MEDICARE, SELFPAY | PROVIDERS: PCP Family Medicine; Visit Provider Nurse Practitioner Family | DX: D69.6 Thrombocytopenia, unspecified (principal) | CPT/HCPCS: 80053; 85025 ==

== ENCOUNTER → 2024-06-27 09:00 | Outpatient (BNVA) | payer MEDICARE, SELFPAY | PROVIDERS: PCP Family Medicine; Visit Provider Internal Medicine Medical Oncology | DX: D69.6 Thrombocytopenia, unspecified (principal) | CPT/HCPCS: 80053; 85025 ==

== ENCOUNTER 2024-06-28 07:43 | Outpatient (CLI) | payer MEDICARE, SELFPAY | END 2024-06-28 07:44 | disposition home or self-care (01) | PROVIDERS: PCP Family Medicine; Visit Provider Internal Medicine Medical Oncology | DX: R06.02 Shortness of breath (principal); R09.89 Other specified symptoms and signs involving the circulatory and respiratory systems; R94.2 Abnormal results of pulmonary function studies | CPT/HCPCS: 94010; 94726; 94729 ==

== ENCOUNTER 2024-06-28 08:42 | Oncology outpatient (recurring) (ONCR) | payer MEDICARE, SELFPAY ==
[2024-06-14 08:08] VITALS: BP 139/80; PULSE 98; RESP 18; TEMP 35.9; O2SAT 99
[2024-06-14 08:12] LABS: Hematocrit 33.5 % (37-53); Mean Corpuscular HGB Conc 31.3 g/dL (30-55); Mean Corpuscular Hemoglobin 29.2 pg (27-33); Mean Corpuscular Volume 93.3 fl (82-101); Red Blood Count 3.59 10^6/uL (3.85-5.65); Red Cell Distribution Width 21.9 % (12.1-15.1); White Blood Count 21.92 10^3/uL (3.29-11.43)
[2024-06-14 08:59] LABS: Slide Review Slide Review Perform
[2024-06-14 09:00] LABS: Platelet Count 8 10^3/cmm (157-399)
[2024-06-14 09:01] LABS: Total Cells Counted 100 (0-100)
[2024-06-14 09:05] LABS: Absolute Segmented Neutrophil 12.7 10/cmm (1.6-7.1); Band Neutrophils Absolute 3.1 10^3/cmm (0.0-1.2); Segmented Neutrophils 58 %
[2024-06-14 09:06] LABS: Absolute Neutrophil 15.8 10^3/cmm (1.4-6.5); Anisocytosis 2+; Corrected White Blood Count 19.6 10^3/cmm (4.8-10.8); Eosinophils 0 %; Lymphocytes 12 %; Lymphocytes Absolute 3.1 10^3/cmm (1.2-3.4); Monocytes Absolute 0.9 10^3/cmm (0.1-0.6); Platelet Estimate Decreased (Normal); Polychromasia Trace; Smudge Cells 1+
[2024-06-14] MEDS: acetaminophen 325 mg Tablet 650 MG PO (09:10)
[2024-06-14] MEDS: diphenhydrAMINE 25 mg Capsule PO (09:10)
[2024-06-14] MEDS: hydrocortisone 100 mg/2 mL SDV IVP (09:11)
[2024-06-14 09:43] VITALS: BP 131/61; PULSE 79; RESP 18; TEMP 36.1; O2SAT 99
[2024-06-14 10:05] VITALS: BP 149/73; PULSE 79; PULSE 87; RESP 18; TEMP 36.1; O2SAT 97; O2SAT 99
[2024-06-14 10:10] VITALS: BP 149/3; PULSE 89; RESP 18; TEMP 36.1; O2SAT 97
[2024-06-17] MEDS: sodium chloride 0.9% (100 ml) 100 ML 75 ML (08:44)
[2024-06-17] MEDS: hydrocortisone 100 mg/2 mL SDV IVP (08:46)
[2024-06-17] MEDS: acetaminophen 325 mg Tablet 650 MG PO (08:47)
[2024-06-17] MEDS: diphenhydrAMINE 25 mg Capsule PO (08:48)
[2024-06-17 08:51] VITALS: BP 122/65; PULSE 85; RESP 17; TEMP 36.2; O2SAT 99
[2024-06-17 09:42] VITALS: BP 135/71; PULSE 81; TEMP 36.1; O2SAT 96
[2024-06-17 10:05] VITALS: BP 135/64; PULSE 77; TEMP 36.1; O2SAT 97
[2024-06-21 08:20] VITALS: BP 154/80; PULSE 68; RESP 18; TEMP 36.2; O2SAT 93
[2024-06-21] MEDS: sodium chloride 0.9% (100 ml) 100 ML 75 ML (08:24)
[2024-06-21] MEDS: acetaminophen 325 mg Tablet 650 MG PO (08:26)
[2024-06-21] MEDS: diphenhydrAMINE 25 mg Capsule PO (08:26)
[2024-06-21] MEDS: hydrocortisone 100 mg/2 mL SDV IVP (08:28)
[2024-06-21 08:52] VITALS: BP 119/64; PULSE 84; RESP 18; TEMP 36.1; O2SAT 98
[2024-06-21 09:07] VITALS: PULSE 81; RESP 18; TEMP 36.2; O2SAT 98
[2024-06-21 09:15] VITALS: BP 113/78; PULSE 81; RESP 18; TEMP 35.9; O2SAT 98
[2024-06-24 08:20] LABS: Hematocrit 29.5 % (37-53); Mean Corpuscular HGB Conc 30.8 g/dL (30-55); Mean Corpuscular Hemoglobin 29.4 pg (27-33); Mean Corpuscular Volume 95.5 fl (82-101); Red Blood Count 3.09 10^6/uL (3.85-5.65); Red Cell Distribution Width 21.9 % (12.1-15.1); White Blood Count 22.17 10^3/uL (3.29-11.43)
[2024-06-24 08:30] LABS: Alanine Aminotransferase 12 U/L (0-41); Albumin Level 3.8 g/dL (3.5-5.2); Alkaline Phosphatase 95 U/L (40-130); Anion Gap 13.5 (5-19); Aspartate Amino Transferase 19 U/L (0-40); Blood Urea Nitrogen 18 mg/dL (8-23); Calcium 8.9 mg/dL (8.5-10.5); Carbon Dioxide 28 mmol/L (22-29); Chloride 100 mmol/L (98-107); Globulin 3.1 g/dL (1.3-4.6); Glucose 305 mg/dL (65-115); Osmolality Calculated 297 mOsm/kg (285-295); Potassium 4.5 mmol/L (3.5-5.1); Sodium 137 mmol/L (136-145); Total Bilirubin 0.7 mg/dL (0.15-1.2); Total Protein 6.9 g/dL (6.6-8.7)
[2024-06-24] MEDS: sodium chloride 0.9% 250 mL Bag IV (08:35)
[2024-06-24] MEDS: hydrocortisone 100 mg/2 mL SDV IVP (08:36)
[2024-06-24] MEDS: acetaminophen 325 mg Tablet 650 MG PO (08:36)
[2024-06-24] MEDS: diphenhydrAMINE 25 mg Capsule PO (08:36)
[2024-06-24 08:45] LABS: Platelet Count 9 10^3/cmm (157-399)
[2024-06-24 08:51] LABS: Band Neutrophils Absolute 1.1 10^3/cmm (0.0-1.2); Segmented Neutrophils 63 %; Slide Review Slide Review Perform; Total Cells Counted 100 (0-100)
[2024-06-24 08:52] LABS: Absolute Neutrophil 15.1 10^3/cmm (1.4-6.5); Anisocytosis 2+; Basophils Absolute 0.2 10^3/cmm (0.0-0.2); Corrected White Blood Count 20.9 10^3/cmm (4.8-10.8); Eosinophils 0 %; Lymphocytes 9 %; Macrocytosis Trace; Platelet Estimate Decreased (Normal); Polychromasia Trace; Smudge Cells Trace
[2024-06-24 09:01] VITALS: BP 118/66; PULSE 86; RESP 16; TEMP 35.9; O2SAT 98
[2024-06-24 09:03] VITALS: BP 118/66; PULSE 86; RESP 16; TEMP 35.9; O2SAT 98
[2024-06-24 09:20] VITALS: BP 118/54; PULSE 80; RESP 16; TEMP 36; O2SAT 98
[2024-06-28] VITALS (18 sets, daily range): BP systolic 108–154; BP diastolic 57–78; PULSE 83–101; RESP 17–18; TEMP 35.8–36.6; O2SAT 87–99
[2024-06-28] MEDS: diphenhydrAMINE 25 mg Capsule PO (09:14)
[2024-06-28] MEDS: hydrocortisone 100 mg/2 mL SDV IVP (09:14)
[2024-06-28] MEDS: acetaminophen 325 mg Tablet 650 MG PO (09:14)
== END 2024-06-28 23:59 | disposition home or self-care (01) ==
PROVIDERS: PCP Family Medicine; Visit Provider Internal Medicine Medical Oncology
DX: Z53.9 Procedure and treatment not carried out, unspecified reason (principal); Z79.899 Other long term (current) drug therapy; D72.829 Elevated white blood cell count, unspecified; D64.9 Anemia, unspecified
CPT/HCPCS: 36430; 80053; 85007; 85025; 86850; 86900; 86920; 96374; 96375; J1720; J7050; P9016; P9035

== ENCOUNTER → 2024-06-30 08:24 | Outpatient (BNVA) | payer MEDICARE, SELFPAY | PROVIDERS: PCP Family Medicine; Visit Provider Internal Medicine Medical Oncology | DX: D69.6 Thrombocytopenia, unspecified (principal) | CPT/HCPCS: 80053; 85007; 85025 ==

== ENCOUNTER → 2024-07-04 08:52 | Outpatient (BNVA) | payer MEDICARE, SELFPAY | PROVIDERS: PCP Family Medicine; Visit Provider Internal Medicine Medical Oncology | DX: D69.6 Thrombocytopenia, unspecified (principal) | CPT/HCPCS: 80053; 85007; 85025 ==

== ENCOUNTER → 2024-07-07 09:00 | Outpatient (BNVA) | payer MEDICARE, SELFPAY | PROVIDERS: PCP Family Medicine; Visit Provider Internal Medicine Medical Oncology | DX: D69.6 Thrombocytopenia, unspecified (principal) | CPT/HCPCS: 80053; 85025 ==

== ENCOUNTER 2024-07-08 08:00 | Oncology outpatient (recurring) (ONCR) | payer MEDICARE, SELFPAY ==
[2024-07-01] MEDS: acetaminophen 325 mg Tablet 650 MG PO (08:07)
[2024-07-01] MEDS: diphenhydrAMINE 25 mg Capsule PO (08:07)
[2024-07-01] MEDS: sodium chloride 0.9% 250 mL Bag IV (08:08)
[2024-07-01] MEDS: hydrocortisone 100 mg/2 mL SDV IVP (08:08)
[2024-07-01 08:51] VITALS: BP 109/60; PULSE 85; RESP 16; TEMP 36; O2SAT 97
[2024-07-01 08:55] VITALS: BP 109/60; PULSE 85; RESP 16; TEMP 36; O2SAT 97
[2024-07-01 09:08] VITALS: BP 119/58; PULSE 85; RESP 16; TEMP 36.2; O2SAT 97
[2024-07-01 09:52] VITALS: BP 146/66; PULSE 89; RESP 18; TEMP 36.1; O2SAT 99
[2024-07-05] MEDS: hydrocortisone 100 mg/2 mL SDV IVP (08:56)
[2024-07-05] MEDS: diphenhydrAMINE 25 mg Capsule PO (08:57)
[2024-07-05] MEDS: acetaminophen 325 mg Tablet 650 MG PO (08:57)
[2024-07-05 09:29] VITALS: PULSE 89; RESP 18; TEMP 36.1; O2SAT 99
[2024-07-05 09:45] VITALS: BP 166/78; PULSE 79; RESP 18; TEMP 36.1; O2SAT 98
[2024-07-05 10:02] VITALS: BP 166/78; PULSE 89; RESP 18; TEMP 36.1; O2SAT 98
[2024-07-08 08:00] VITALS: BP 158/67; PULSE 78; RESP 16; TEMP 36.1; O2SAT 98
[2024-07-08] MEDS: sodium chloride 0.9% 250 mL Bag IV (08:03)
[2024-07-08] MEDS: diphenhydrAMINE 25 mg Capsule PO (08:04)
[2024-07-08] MEDS: hydrocortisone 100 mg/2 mL SDV IVP (08:04)
[2024-07-08] MEDS: acetaminophen 325 mg Tablet 650 MG PO (08:04)
[2024-07-08 08:45] VITALS: BP 127/65; PULSE 74; RESP 16; TEMP 36.1; O2SAT 98
[2024-07-08 08:58] VITALS: BP 145/65; PULSE 79; RESP 16; TEMP 36.2; O2SAT 98
[2024-07-08 09:00] VITALS: BP 145/65; PULSE 79; RESP 16; TEMP 36.2; O2SAT 98
== END 2024-07-11 23:59 | disposition home or self-care (01) ==
PROVIDERS: PCP Family Medicine; Visit Provider Internal Medicine Medical Oncology
DX: D69.6 Thrombocytopenia, unspecified; Z79.899 Other long term (current) drug therapy; Z53.9 Procedure and treatment not carried out, unspecified reason
CPT/HCPCS: 36430; 86850; 86900; 86920; 96374; 96375; 99214; J1720; J7050; P9016; P9035

== ENCOUNTER → 2024-07-11 09:00 | Outpatient (BNVA) | payer MEDICARE, SELFPAY | PROVIDERS: PCP Family Medicine; Visit Provider Nurse Practitioner Family | DX: D69.6 Thrombocytopenia, unspecified (principal) | CPT/HCPCS: 80053; 85007; 85025 ==

== ENCOUNTER → 2024-07-14 08:30 | Outpatient (BNVA) | payer MEDICARE, SELFPAY | PROVIDERS: PCP Family Medicine; Visit Provider Internal Medicine Medical Oncology | DX: D69.6 Thrombocytopenia, unspecified (principal) | CPT/HCPCS: 80053; 85025 ==

== ENCOUNTER → 2024-07-18 09:00 | Outpatient (BNVA) | payer MEDICARE, SELFPAY | PROVIDERS: PCP Family Medicine; Referring Provider Internal Medicine Medical Oncology; Visit Provider Nurse Practitioner Family | DX: D69.6 Thrombocytopenia, unspecified (principal) | CPT/HCPCS: 80053; 85007; 85025 ==

== ENCOUNTER → 2024-07-21 09:20 | Outpatient (BNVA) | payer MEDICARE, SELFPAY | PROVIDERS: PCP Family Medicine; Visit Provider Internal Medicine Medical Oncology | DX: D69.6 Thrombocytopenia, unspecified (principal) | CPT/HCPCS: 80053; 85025 ==

== ENCOUNTER → 2024-07-25 09:00 | Outpatient (BNVA) | payer MEDICARE, SELFPAY | PROVIDERS: PCP Family Medicine; Visit Provider Nurse Practitioner Family | DX: D69.6 Thrombocytopenia, unspecified (principal) | CPT/HCPCS: 80053; 85007; 85025 ==

== ENCOUNTER → 2024-07-28 09:00 | Outpatient (BNVA) | payer MEDICARE, SELFPAY | PROVIDERS: PCP Family Medicine; Visit Provider Internal Medicine Medical Oncology | DX: D69.6 Thrombocytopenia, unspecified (principal) | CPT/HCPCS: 80053; 85025 ==

== ENCOUNTER 2024-07-29 10:51 | Emergency (ER) | payer MEDICARE, SELFPAY ==
[2024-07-29] VITALS (7 sets, daily range): BP systolic 149–150; BP diastolic 65–72; PULSE 91–100; RESP 17–31; TEMP 36.1; O2SAT 94–97; BMI 26.2
--- NOTE | 2024-07-29 11:14 | XR_ITS ---
WS: [id number] Portable AP upright chest, 07/29/2024 Clinical Data: cp Comparison: Two-view chest, 04/26/2024 Findings: No nodules, masses or effusions are seen. The heart is normal. The pulmonary vascularity is not increased. No pneumonia or pneumothorax is seen. The left diaphragm is elevated and there our sm all atelectatic changes over the surface. Midline sternotomy sutures are present. The aortic arch albertina ws calcification and tortuosity. There is an infusion catheter entering from the left and ending in t he superior vena cava. There are monitor leads on the chest wall. 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 XR/XR chest 1V portable [id number] Impression: Atherosclerosis.
--- NOTE | 2024-07-29 11:14 | ECG_ITS ---
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: : 1945 Requested By: Dixon Maki Order Number: [id number] Reading MD: JAILENE ESPOSITO Measurements Intervals [place] Rate: 95 P: 38 MD: 168 QRS: -70 QRSD: 125 T: 84 QT: 367 QTc: 463 Interpretive Statements SINUS RHYTHM LEFT AXIS DEVIATION [QRS AXIS < -30] SEPTAL MYOCARDIAL INFARCTION , PROBABLY OLD [40+ ms Q WAVE IN V1/V2] Compared to ECG 03/11/2023 12:41:35 Myocardial infarct finding now present Intraventricular conduction delay no longer present Electronically Signed On 07-30-2024 18:10:51 CDT by JAILENE ESPOSITO [id number]
--- NOTE | 2024-07-29 11:16 | ED_ITS ---
HPI - Chest Pain 2 General: Chief Complaint: Chest Pain Stated Complaint: transfusion reaction CP Time Seen by Provider: 07/29/24 10:59 Source: patient Mode of arrival: ambulatory Limitations: no limitations History of Present Illness: This patient was referred to the emergency department from the infusion center. This gentleman with known history of coronary disease was getting his usual care in the infusion center which consists of a blood transfusion and platelet pheresis. During his transfusion this morning approximately 10 to 15 minutes into that process he developed a pressure sensation in the center of his chest. He states that it feels like a squeezing. He states that this occurs from time to time without provocative occasion and he usually takes a Tylenol 3 and it takes care of his symptoms. He has a known history of coronary artery disease and had a CABG approximately 10 years ago. 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 He is followed by oncology both here and has been seen at [facility] in [place]. He had little response to previous chemotherapeutic agents and is maintained on his twice weekly blood bank products. He did not have any fevers or chills or other typical symptoms of a transfusion reaction this morning. Denies any cough or fever or recent illness. He states she is currently feeling better and his symptoms are resolving. He denies any chest pain with activity normally although his activity is rather limited due to arthritis and frailty of age Pertinent past history: coronary artery disease and CABG Onset: during rest Pain location: substernal Associated symptoms: Deny abdominal pain, fever(s), syncope or vomiting Treatment prior to arrival: none Risk Factors: Coronary artery disease risk factors: smoking history Related Data Home Medications Medication Instructions Recorded Confirmed diclofenac sodium 1 % topical gel 4 gm topical QID 05/08/20 07/29/24 (Voltaren) magnesium 200 mg tablet 200 mg PO DAILY 05/08/20 07/29/24 potassium gluconate 595 mg (99 mg) 99 mg PO DAILY 05/08/20 07/29/24 tablet,extended release cetirizine 10 mg capsule (All Day 10 mg PO DAILY PRN Allergy Symptoms 02/02/23 07/29/24 Allergy (cetirizine)) cinnamon bark 500 mg capsule 500 mg PO BID 02/02/23 07/29/24 (Cinnamon) doxazosin 4 mg tablet (Cardura) 4 mg PO DAILY 02/06/23 07/29/24 omeprazole 10 mg capsule,delayed 10 mg PO DAILY 02/06/23 07/29/24 release cholecalciferol (vitamin D3) 50 50 mcg PO DAILY 03/11/23 07/29/24 mcg (2,000 unit) capsule ascorbic acid (vitamin C) 500 mg 500 mg PO DAILY 06/01/23 07/29/24 capsule cyanocobalamin (vitamin B-12) 1,000 mcg PO DAILY 06/01/23 07/29/24 1,000 mcg capsule food supplemt, lactose-reduced 1 ea PO TID 06/09/23 07/29/24 (Ensure oral liquid) Previous Rx's Medication Instructions Recorded acetaminophen 300 mg-codeine 30 mg 1 tab PO Q6H PRN pain #120 tabs 07/05/24 tablet Allergies Allergy/AdvReac Type Severity Reaction Status Date / Time No Known Allergies Allergy Verified 07/05/24 08:11 Review of Systems 2 Const: Denies: fever(s) or chills ENMT: Denies: odynophagia, nasal discharge or nasal congestion Card: Reports: chest pain; Denies: lightheadedness, syncope or pre-syncope Resp: Denies: productive cough or non-productive cough GI: Denies: abdominal pain, vomiting or diarrhea : Denies: flank pain, difficulty urinating or dysuria Musc: Denies: neck pain or back pain Skin/Breast: Reports: rash and pruritus Neuro: Denies: headache(s), numbness in extremities or weakness in extremities Edson/Lymph: Reports: easy bruising and easy bleeding PFSH ED 2 PFSH: Medical History Peripheral arterial disease Coronary artery disease Hyperlipidemia GERD (gastroesophageal reflux disease) Type 2 diabetes mellitus Hypertension History of carotid artery disease Primary myelofibrosis Surgical History Hx of repair of rotator cuff History of back surgery History of coronary artery bypass surgery (2012) History of right-sided carotid endarterectomy (2016) Family History Father CAD (coronary artery disease) Brother Cancer Mother Cancer Denies family history of Diabetes Clotting disorder Dementia Hyperlipidemia Psychiatric illness Chronic kidney disease (CKD) Suicide Anesthesia complication Bleeding disorder Family history of premature coronary artery disease Lung disease Hypertension Stroke Social History Smoking and tobacco/nicotine status: current every day tobacco/nicotine user cigarettes Packs smoked per day: 1.5 Years cigarettes smoked: 64 Alcohol intake: current Alcohol intake frequency: holidays/special occasions only Physical Exam 2 Narrative: EXAM NARRATIVE: He appears to be comfortable he interacts appropriately makes good eye contact and answers questions readily. His clothing is a bit dirty and disheveled. Const: COMMON NORMALS: no acute distress and patient oriented x3 GENERAL APPEARANCE: cooperative, comfortable and disheveled HENMT: COMMON NORMALS: normocephalic, Normal nasal mucous membranes and turbinates present and moist oral mucous membranes HEAD & SCALP: n ormocephalic NOSE: Normal nasal mucous membranes and turbinates present Eye: COMMON NORMALS: Equal, round and reactive pupils present, conjunctivae normal and no scleral icterus CONJUNCTIVA: Yes conjunctivae normal PUPIL: Yes Equal, round and reactive pupils present Neck/C-Spine: COMMON NORMALS: full ROM and no lymphadenopathy Chest: COMMONS NORMALS: normal inspection of the chest OTHER: Chest anterior chest wall is tender to palpation over the sternum and costochondral margins. No subcutaneous emphysema, ecchymosis, skin rashes noted in this region. Resp: COMMON NORMALS: normal respiratory effort, No retractions, No use of accessory muscles and clear to auscultation bilaterally AUSCULTATION: clear to auscultation bilaterally Cardio: COMMON NORMALS: regular rate, regular rhythm, No murmurs present (Cardio) and Peripheral pulses 2+ throughout RATE: regular rate RHYTHM: r egular rhythm PERIPHERAL PULSES: Peripheral pulses 2+ throughout GI: COMMON NORMALS: Normal to inspection, nondistended, normoactive bowel sounds present and Soft to palpation PALPATION: Yes Soft to palpation Back/Pelvis: COMMON NORMALS: thoracic and lumbar spine normal to inspection, no thoracic nor lumbar tenderness and thoraco-lumbar ROM normal Extremity: COMMON NORMALS: full ROM and capillary refill normal NARRATIVE EXTREMITY EXAM: Both lower extremities are notable for hemosiderin deposition subcutaneously. No pedal edema or calf tenderness. Multiple areas of minor trauma with small eschars. Neuro: COMMON NORMALS: patient oriented x3, moves all extremities, no focal motor deficits and no sensory deficits noted CRANIAL NERVES: Yes CN normal except as noted Psych: COMMON NORMALS: mental status grossly normal Skin: COMMON NORMALS: turgor normal NARRATIVE SKIN EXAM: Few scattered petechiae in the lower extremities. Hemosiderin deposition noted in the lower extremities. GENERAL SKIN EXAM: turgor normal Course 2 Reevaluation(s): Reevaluation #1: Patient states he is feeling better. I relayed to him that his laboratory values to include his platelet count is slightly higher than it has been recently but of course he just received a transfusion. I did relate to him that his troponin was slightly over the URL and that the common practice would be for us to repeat that study in approximately 2 hours to ensure that there was no significant delta may or may not indicate ongoing ischemia. He and his daughter who is now here voiced understanding of the usual recommendations and care. Further related to him that I cannot assure that he is not having any cardiac ischemia without a repeat value. His initial EKG was reassuring and his vital signs remained reassuring as well. He and his daughter acknowledged my recommendations. It is his preference that he would like to be discharged in the hospital at this time. He did acknowledge that he is assuming risk and that there is a potential to get be having cardiac ischemia that might result in his current change in his lifestyle or meet even . He states that if he goes home and has persistent or increasing pain he will notify EMS. His daughter supports his decision. He appears to understand his decision and has capacity to make decisions at this time and is not impaired. He is welcome to return at any time. Time: 12:21 Vital Signs: Vital signs: Vital Signs Temperature 97.0 F L 07/29/24 10:56 Pulse Rate 94 07/29/24 11:50 Respiratory Rate 30 H 07/29/24 11:50 Blood Pressure 150/65 07/29/24 11:50 Pulse Oximetry 96 07/29/24 11:50 MDM - Chest Pain Medical Decision Making This patient presented to the emergency department as noted in the HPI. History of coronary artery disease and similar occurrences in the past which resolved with using acetaminophen with codeine. He was clinically stable with reassuring vital signs differential included noncardiac versus cardiac etiology of his chest pain. Initial workup included reassuring EKG laboratories to include troponin and chest x-ray. Initial laboratory studies were notable for the same perturbations and his CBC is consistent with his underlying chronic diagnosis. Chest x-ray is reassuring but he did have a slight elevation in his initial troponin. The patient after consideration has decided to be discharged with both he and his daughter acknowledging the risks of such a action that there is potential for undiagnosed ischemia. Medical Records I reviewed the patient's medical records. Prior oncology notes reviewed Lab Data I reviewed the patient's lab results. 07/29/24 11:16 07/29/24 11:16 Radiology Impressions Chest X-Ray 07/29/24 11:14 Impression: Atherosclerosis. Laboratory Results WBC 26.19 10^3/uL (3.29-11.43) H 07/29/24 11:16 RBC 2.77 10^6/uL (3.85-5.65) L 07/29/24 11:16 Hgb 8.40 g/dL (11.27-16.99) L 07/29/24 11:16 Hct 27.4 % (37-53) L 07/29/24 11:16 MCV 98.9 fl (82-101) 07/29/24 11:16 MCH 30.3 pg (27-33) 07/29/24 11:16 MCHC 30.7 g/dL (30-55) 07/29/24 11:16 RDW 21.0 % (12.1-15.1) H 07/29/24 11:16 Plt Count 29 10^3/cmm (157-399) L D 07/29/24 11:16 MPV 10.6 fL (7.4-10.4) H 07/29/24 11:16 Neut % (Auto) 67.4 % 07/29/24 11:16 Lymph % (Auto) 5.2 % 07/29/24 11:16 [place] % (Auto) 8.8 % 07/29/24 11:16 Eos % (Auto) 0.1 % 07/29/24 11:16 Baso % (Auto) 2.0 % 07/29/24 11:16 Neut # (Auto) 17.65 10^3/uL (1.8-7.7) H 07/29/24 11:16 Lymph # (Auto) 1.4 10^3/uL (0.8-4.8) 07/29/24 11:16 [place] # (Auto) 2.3 10^3/uL (0.2-0.9) H 07/29/24 11:16 Eos # (Auto) 0.0 10^3/uL (0.0-0.8) 07/29/24 11:16 Baso # (Auto) 0.5 10^3/uL (0.0-0.1) H 07/29/24 11:16 Nucleated RBC % (auto) 16.7 % 07/29/24 11:16 Nucleated RBCs # 4.4 /100WBC 07/29/24 11:16 Sodium 130 mmol/L (136-145) L 07/29/24 11:16 Potassium 4.5 mmol/L (3.5-5.1) 07/29/24 11:16 Chloride 95 mmol/L (98-107) L 07/29/24 11:16 Carbon Dioxide 25 mmol/L (22-29) 07/29/24 11:16 Anion Gap 14.5 (5-19) 07/29/24 11:16 BUN 14 mg/dL (8-23) 07/29/24 11:16 Creatinine 0.8 mg/dL (0.7-1.2) 07/29/24 11:16 GFR Calculation Not Reportable 07/29/24 11:16 Glucose 424 mg/dL (65-115) H 07/29/24 11:16 Calculated Osmolality 289 mOsm/kg (285-295) 07/29/24 11:16 Calcium 7.9 mg/dL (8.5-10.5) L 07/29/24 11:16 Total Bilirubin 0.8 mg/dL (0.15-1.2) 07/29/24 11:16 AST 24 U/L (0-40) 07/29/24 11:16 ALT 12 U/L (0-41) 07/29/24 11:16 Alkaline Phosphatase 100 U/L (40-130) 07/29/24 11:16 Troponin T Baseline 19 ng/L (0-15) H 07/29/24 11:16 Total Protein 6.4 g/dL (6.6-8.7) L 07/29/24 11:16 Albumin 3.8 g/dL (3.5-5.2) 07/29/24 11:16 Globulin 2.6 g/dL (1.3-4.6) 07/29/24 11:16 Lipase 14 U/L (13-60) 07/29/24 11:16 All radiology interpretation(s) finalized by discharge EKG Data EKG 1: I personally reviewed and interpreted this EKG as follows: Interpretation: Contemporaneous review of the resting EKG reveals sinus rhythm with a ventricular rate of 95 bpm. Normal MA interval, QRS duration, corrected QT interval. Leftward axis noted. No acute ST-T wave changes noted. Discharge Plan Discharge Patient Disposition: Home Clinical Impression: Chest pain, Primary myelofibrosis Condition: Stable Prescriptions: No Action diclofenac sodium [Voltaren] 1 % gel 4 gm TOPICAL QID Rx Instructions: apply to single knee, ankle, foot; for foot includes sole/toes/top of foot magnesium 200 mg tablet 200 mg PO DAILY potassium gluconate 595 mg (99 mg) tablet extended release 99 mg PO DAILY ascorbic acid (vitamin C) 500 mg capsule 500 mg PO DAILY cyanocobalamin (vitamin B-12) 1,000 mcg capsule 1,000 mcg PO DAILY cholecalciferol (vitamin D3) 50 mcg (2,000 unit) capsule 50 mcg PO DAILY cinnamon bark [Cinnamon] 500 mg capsule 500 mg PO BID All Day Allergy (cetirizine) 10 mg capsule 10 mg PO DAILY PRN (Reason: Allergy Symptoms) Ensure Liquid 1 ea PO TID acetaminophen-codeine 300-30 mg tablet 1 tab PO Q6H PRN (Reason: pain) Qty: 120 0RF omeprazole 10 mg Capsule,Delayed Release(Dr/Ec) 10 mg PO DAILY doxazosin [Cardura] 4 mg tablet 4 mg PO DAILY Discharge Orders: Discharge ED (Routine); Ordered 07/29/24 Ordered By: Dixon Maki Referrals: Ozzie Cardenas MD [Primary Care Provider] - Discharge Diet: Usual diet Discharge Activity: Resume usual activity Patient Instructions: Opioid Safety, Pain Management Activity Restrictions/Additional Instructions: As we discussed while you are in the emergency department we cannot rule out that you are having any heart related chest pain today based upon your decision to be discharged prior to completing additional testing. You should continue all your usual medications and if you have recurrent or persistent chest pain lasting for more than 1 hour or any other concerning symptoms you should return to the emergency department immediately. Follow-up with the transfusion center Thursday as scheduled. Stand Alone Forms: Against Medical Advice Coding Level of Care Code ED Hvac Service Manager for Thony Mederos
[2024-07-29 11:36] LABS: Basophils # 0.5 10^3/uL (0.0-0.1); Eosinophils % 0.1 %; Hematocrit 27.4 % (37-53); Lymphocytes # 1.4 10^3/uL (0.8-4.8); Lymphocytes % 5.2 %; Mean Corpuscular HGB Conc 30.7 g/dL (30-55); Mean Corpuscular Hemoglobin 30.3 pg (27-33); Mean Corpuscular Volume 98.9 fl (82-101); Mean Platelet Volume 10.6 fL (7.4-10.4); Monocytes # 2.3 10^3/uL (0.2-0.9); Monocytes % 8.8 %; Neutrophils # 17.65 10^3/uL (1.8-7.7); Neutrophils % 67.4 %; Nucleated Red Blood Cells # 4.4 /100WBC; Nucleated Red Blood Cells % 16.7 %; Red Blood Count 2.77 10^6/uL (3.85-5.65); White Blood Count 26.19 10^3/uL (3.29-11.43)
[2024-07-29] MEDS: famotidine 20 mg/2 mL INJ 40 MG IVP (11:36)
[2024-07-29 11:47] LABS: Alanine Aminotransferase 12 U/L (0-41); Albumin Level 3.8 g/dL (3.5-5.2); Alkaline Phosphatase 100 U/L (40-130); Anion Gap 14.5 (5-19); Aspartate Amino Transferase 24 U/L (0-40); Blood Urea Nitrogen 14 mg/dL (8-23); Calcium 7.9 mg/dL (8.5-10.5); Carbon Dioxide 25 mmol/L (22-29); Chloride 95 mmol/L (98-107); Creatinine Clr Calc Pharmacy 71.6604; Globulin 2.6 g/dL (1.3-4.6); Glucose 424 mg/dL (65-115); Lipase 14 U/L (13-60); Osmolality Calculated 289 mOsm/kg (285-295); Potassium 4.5 mmol/L (3.5-5.1); Sodium 130 mmol/L (136-145); Total Bilirubin 0.8 mg/dL (0.15-1.2); Total Protein 6.4 g/dL (6.6-8.7)
[2024-07-29 11:49] LABS: Troponin(5th) Baseline 19 ng/L (0-15)
[2024-07-29 12:00] LABS: Slide Review Slide Review Perform
[2024-07-29 12:01] LABS: Platelet Count 29 10^3/cmm (157-399)
== END 2024-07-29 12:41 | disposition home or self-care (01) ==
PROVIDERS: Emergency Provider Emergency Medicine; PCP Family Medicine
DX: R07.9 Chest pain, unspecified (principal); D47.1 Chronic myeloproliferative disease; F17.210 Nicotine dependence, cigarettes, uncomplicated; I25.10 Atherosclerotic heart disease of native coronary artery without angina pectoris; E78.5 Hyperlipidemia, unspecified; E11.9 Type 2 diabetes mellitus without complications; I10 Essential (primary) hypertension; Z95.1 Presence of aortocoronary bypass graft
CPT/HCPCS: 71045; 80053; 83690; 84484; 85025; 93005; 96374; 99285; J3490

== ENCOUNTER → 2024-08-01 08:30 | Outpatient (BNVA) | payer MEDICARE, SELFPAY | PROVIDERS: PCP Family Medicine; Visit Provider Internal Medicine Medical Oncology | DX: D69.6 Thrombocytopenia, unspecified (principal) | CPT/HCPCS: 80053; 85007; 85025 ==

== ENCOUNTER 2024-08-02 08:00 | Oncology outpatient (recurring) (ONCR) | payer MEDICARE, SELFPAY ==
[2024-07-12] MEDS: acetaminophen 325 mg Tablet 650 MG PO (09:03)
[2024-07-12] MEDS: hydrocortisone 100 mg/2 mL SDV IVP (09:04)
[2024-07-12] MEDS: diphenhydrAMINE 25 mg Capsule PO (09:04)
[2024-07-12 09:42] VITALS: BP 123/63; PULSE 92; RESP 18; TEMP 36.1; O2SAT 99
[2024-07-12 10:00] VITALS: BP 124/78; PULSE 88; RESP 18; TEMP 36.1; O2SAT 98
[2024-07-15 08:05] VITALS: BP 130/60; PULSE 87; RESP 16; TEMP 36.1; O2SAT 98
[2024-07-15] MEDS: hydrocortisone 100 mg/2 mL SDV IVP (08:23)
[2024-07-15] MEDS: acetaminophen 325 mg Tablet 650 MG PO (08:23)
[2024-07-15] MEDS: diphenhydrAMINE 25 mg Capsule PO (08:23)
[2024-07-15] MEDS: sodium chloride 0.9% 250 mL Bag IV (08:23)
[2024-07-15 08:55] VITALS: BP 118/62; PULSE 87; RESP 16; TEMP 36.1; O2SAT 98
[2024-07-15 09:10] VITALS: BP 116/63; PULSE 87; RESP 16; TEMP 36.1; O2SAT 99
[2024-07-19] VITALS (8 sets, daily range): BP systolic 112–138; BP diastolic 57–69; PULSE 77–85; RESP 17–18; TEMP 35.9–36.3; O2SAT 97–99
[2024-07-19] MEDS: acetaminophen 325 mg Tablet 650 MG PO (09:24)
[2024-07-19] MEDS: sodium chloride 0.9% 250 mL Bag IV (09:24)
[2024-07-19] MEDS: diphenhydrAMINE 25 mg Capsule PO (09:25)
[2024-07-19] MEDS: hydrocortisone 100 mg/2 mL SDV IVP (09:27)
[2024-07-22] MEDS: diphenhydrAMINE 25 mg Capsule PO (08:05)
[2024-07-22] MEDS: acetaminophen 325 mg Tablet 650 MG PO (08:05)
[2024-07-22] MEDS: hydrocortisone 100 mg/2 mL SDV IVP (08:05)
[2024-07-22 08:44] VITALS: BP 120/63; PULSE 71; RESP 16; TEMP 36.1; O2SAT 99
[2024-07-22 08:58] VITALS: BP 107/55; PULSE 85; RESP 16; TEMP 36.1; O2SAT 98
[2024-07-26 08:17] VITALS: BP 147/65; PULSE 86; RESP 17; TEMP 36.2; O2SAT 98
[2024-07-26 08:44] VITALS: PULSE 99; RESP 18; TEMP 36.1; O2SAT 98
[2024-07-26] MEDS: acetaminophen 325 mg Tablet 650 MG PO (08:46)
[2024-07-26] MEDS: hydrocortisone 100 mg/2 mL SDV IVP (08:46)
[2024-07-26] MEDS: diphenhydrAMINE 25 mg Capsule PO (08:47)
[2024-07-26 09:11] VITALS: BP 112/61; PULSE 92; RESP 17; TEMP 35.9
[2024-07-26 09:37] VITALS: BP 125/66; PULSE 89; RESP 17; TEMP 36.2; O2SAT 99
[2024-07-29] VITALS (7 sets, daily range): BP systolic 97–148; BP diastolic 60–81; PULSE 91–101; RESP 16–20; TEMP 36.1–36.3; O2SAT 97–99
[2024-07-29] MEDS: diphenhydrAMINE 25 mg Capsule PO (08:29)
[2024-07-29] MEDS: acetaminophen 325 mg Tablet 650 MG PO (08:29)
[2024-07-29] MEDS: sodium chloride 0.9% 250 mL Bag IV (08:31)
[2024-07-29] MEDS: hydrocortisone 100 mg/2 mL SDV IVP (08:32)
[2024-07-29] MEDS: methylPREDNISolone sod succ 40 mg/mL INJ IVP (10:38)
--- NOTE | 2024-07-29 11:42 | PC.NURSE ---
Rapid response called on patient for possible blood transfusion reaction due to body aches, muscle pain and chest pain. Patient transferred to ER via [facility] by rapid response team at 1044. Providers aware of patient transport and family was notified.
[2024-08-02] MEDS: diphenhydrAMINE 25 mg Capsule PO (08:36)
[2024-08-02] MEDS: hydrocortisone 100 mg/2 mL SDV IVP (08:37)
[2024-08-02] MEDS: acetaminophen 325 mg Tablet 650 MG PO (08:37)
[2024-08-02 09:00] VITALS: BP 121/68; PULSE 88; RESP 18; TEMP 36.6; O2SAT 99
[2024-08-02 09:28] VITALS: BP 121/68; PULSE 88; RESP 18; TEMP 36.1; O2SAT 99
== END 2024-08-02 23:59 | disposition home or self-care (01) ==
PROVIDERS: PCP Family Medicine; Visit Provider Internal Medicine Hematology & Oncology
DX: D69.6 Thrombocytopenia, unspecified; Z79.899 Other long term (current) drug therapy; Z53.9 Procedure and treatment not carried out, unspecified reason
CPT/HCPCS: 36430; 86850; 86900; 86920; 96374; 96375; J1720; J2919; J7050; P9016; P9035; P9040

== ENCOUNTER → 2024-08-08 08:40 | Outpatient (BNVA) | payer MEDICARE, SELFPAY | PROVIDERS: PCP Family Medicine; Visit Provider Nurse Practitioner Family | DX: D69.6 Thrombocytopenia, unspecified (principal) | CPT/HCPCS: 80053; 85007; 85025 ==

== ENCOUNTER 2024-08-09 08:00 | Oncology outpatient (recurring) (ONCR) | payer MEDICARE, SELFPAY ==
[2024-08-04] VITALS (7 sets, daily range): BP systolic 105–121; BP diastolic 56–78; PULSE 81–89; RESP 18; TEMP 36.1–36.2; O2SAT 98–99
[2024-08-04 08:20] LABS: Hematocrit 24.8 % (37-53); Mean Corpuscular HGB Conc 30.2 g/dL (30-55); Mean Corpuscular Hemoglobin 30.2 pg (27-33); Red Blood Count 2.48 10^6/uL (3.85-5.65); Red Cell Distribution Width 21.7 % (12.1-15.1); White Blood Count 23.15 10^3/uL (3.29-11.43)
[2024-08-04 08:36] LABS: Platelet Count 10 10^3/cmm (157-399); Slide Review Slide Review Perform
[2024-08-04 08:53] LABS: Absolute Neutrophil 17.8 10^3/cmm (1.4-6.5); Absolute Segmented Neutrophil 15.3 10/cmm (1.6-7.1); Band Neutrophils Absolute 2.5 10^3/cmm (0.0-1.2); Corrected White Blood Count 19.5 10^3/cmm (4.8-10.8); Eosinophils 0 %; Lymphocytes 7 %; Macrocytosis 1+; Monocytes Absolute 0.2 10^3/cmm (0.1-0.6); Platelet Estimate Decreased (Normal); Polychromasia 1+; Segmented Neutrophils 66 %; Total Cells Counted 100 (0-100)
[2024-08-04] MEDS: hydrocortisone 100 mg/2 mL SDV IVP (09:22)
[2024-08-04] MEDS: famotidine 20 mg/2 mL INJ IVP (09:22)
[2024-08-04] MEDS: acetaminophen 325 mg Tablet 650 MG PO (09:23)
[2024-08-04] MEDS: diphenhydrAMINE 25 mg Capsule PO (09:23)
[2024-08-04] MEDS: sodium chloride 0.9% 250 mL Bag IV (09:24)
[2024-08-09] MEDS: diphenhydrAMINE 25 mg Capsule PO (08:41)
[2024-08-09] MEDS: acetaminophen 325 mg Tablet 650 MG PO (08:41)
[2024-08-09] MEDS: hydrocortisone 100 mg/2 mL SDV IVP (08:42)
[2024-08-09 09:05] VITALS: BP 113/64; PULSE 78; RESP 18; TEMP 36.1; O2SAT 98
[2024-08-09 09:19] VITALS: BP 113/64; PULSE 78; RESP 18; TEMP 36.2; O2SAT 98
[2024-08-09 09:30] VITALS: BP 118/68; PULSE 78; PULSE 89; RESP 18; TEMP 36.1; O2SAT 98
== END 2024-08-11 23:59 | disposition home or self-care (01) ==
PROVIDERS: Nurse Practitioner Family; PCP Family Medicine; Visit Provider Internal Medicine Hematology & Oncology
DX: D69.6 Thrombocytopenia, unspecified; Z53.9 Procedure and treatment not carried out, unspecified reason
CPT/HCPCS: 36430; 85007; 85025; 86850; 86900; 86920; 96375; J1720; J3490; J7050; P9035; P9040

== ENCOUNTER → 2024-08-11 08:40 | Outpatient (BNVA) | payer MEDICARE, SELFPAY | PROVIDERS: PCP Family Medicine; Visit Provider Internal Medicine Medical Oncology | DX: D69.6 Thrombocytopenia, unspecified (principal) | CPT/HCPCS: 80053; 85025 ==

== ENCOUNTER 2024-09-01 09:45 | Oncology outpatient (recurring) (ONCR) | payer MEDICARE, SELFPAY ==
[2024-08-12] VITALS (9 sets, daily range): BP systolic 103–151; BP diastolic 59–88; PULSE 70–83; RESP 16–18; TEMP 35.8–36.2; O2SAT 96–99
[2024-08-12] MEDS: acetaminophen 325 mg Tablet 650 MG PO (07:50)
[2024-08-12] MEDS: diphenhydrAMINE 25 mg Capsule PO (07:50)
[2024-08-12] MEDS: sodium chloride 0.9% 250 mL Bag IV (07:51)
[2024-08-12] MEDS: hydrocortisone 100 mg/2 mL SDV IVP (07:51)
[2024-08-15 11:02] VITALS: BP 134/72; PULSE 89; RESP 16; TEMP 36.4; O2SAT 94
[2024-08-15 11:28] LABS: Hematocrit 28.6 % (37-53); Mean Corpuscular HGB Conc 30.8 g/dL (30-55); Mean Corpuscular Hemoglobin 29.7 pg (27-33); Mean Corpuscular Volume 96.6 fl (82-101); Red Blood Count 2.96 10^6/uL (3.85-5.65); Red Cell Distribution Width 20.2 % (12.1-15.1); White Blood Count 21.61 10^3/uL (3.29-11.43)
[2024-08-15] MEDS: diphenhydrAMINE 25 mg Capsule PO (12:23)
[2024-08-15] MEDS: acetaminophen 325 mg Tablet 650 MG PO (12:24)
[2024-08-15] MEDS: hydrocortisone 100 mg/2 mL SDV IVP (12:27)
[2024-08-15 12:28] LABS: Platelet Count 7 10^3/cmm (157-399)
[2024-08-15 12:34] LABS: Slide Review Slide Review Perform; Total Cells Counted 100 (0-100)
[2024-08-15 12:35] LABS: Absolute Neutrophil 16.6 10^3/cmm (1.4-6.5); Absolute Segmented Neutrophil 12.7 10/cmm (1.6-7.1); Anisocytosis 2+; Band Neutrophils Absolute 3.9 10^3/cmm (0.0-1.2); Basophils Absolute 0.2 10^3/cmm (0.0-0.2); Eosinophils 0 %; Lymphocytes 8 %; Lymphocytes Absolute 2.4 10^3/cmm (1.2-3.4); Macrocytosis Trace; Platelet Estimate Decreased (Normal); Polychromasia 1+; Segmented Neutrophils 59 %; Smudge Cells 1+
[2024-08-15 13:00] VITALS: BP 118/67; PULSE 89; RESP 17; TEMP 36.4; O2SAT 99
[2024-08-15 13:14] VITALS: BP 126/68; PULSE 86; RESP 18; TEMP 36.6; O2SAT 98
[2024-08-15 13:28] VITALS: BP 126/68; PULSE 86; RESP 18; TEMP 36.6; O2SAT 98
[2024-08-18 07:57] LABS: Basophils # 0.4 10^3/uL (0.0-0.1); Basophils % 1.6 %; Lymphocytes # 1.5 10^3/uL (0.8-4.8); Lymphocytes % 5.9 %; Mean Corpuscular HGB Conc 30.3 g/dL (30-55); Mean Corpuscular Hemoglobin 29.6 pg (27-33); Mean Corpuscular Volume 97.6 fl (82-101); Monocytes % 8.2 %; Neutrophils # 16.32 10^3/uL (1.8-7.7); Neutrophils % 65.9 %; Nucleated Red Blood Cells % 15.9 %; Red Blood Count 2.97 10^6/uL (3.85-5.65); Red Cell Distribution Width 20.3 % (12.1-15.1); White Blood Count 24.78 10^3/uL (3.29-11.43)
[2024-08-18 08:08] LABS: Platelet Count 11 10^3/cmm (157-399)
[2024-08-18 08:09] LABS: Alanine Aminotransferase 7 U/L (0-41); Albumin Level 3.7 g/dL (3.5-5.2); Alkaline Phosphatase 96 U/L (40-130); Anion Gap 15.4 (5-19); Aspartate Amino Transferase 19 U/L (0-40); Blood Urea Nitrogen 12 mg/dL (8-23); Calcium 8.5 mg/dL (8.5-10.5); Carbon Dioxide 25 mmol/L (22-29); Chloride 97 mmol/L (98-107); Glucose 314 mg/dL (65-115); Osmolality Calculated 288 mOsm/kg (285-295); Potassium 4.4 mmol/L (3.5-5.1); Slide Review Slide Review Perform; Sodium 133 mmol/L (136-145); Total Bilirubin 0.8 mg/dL (0.15-1.2); Total Protein 6.7 g/dL (6.6-8.7)
[2024-08-18] MEDS: diphenhydrAMINE 25 mg Capsule PO (10:23)
[2024-08-18] MEDS: acetaminophen 325 mg Tablet 650 MG PO (10:24)
[2024-08-18] MEDS: hydrocortisone 100 mg/2 mL SDV IVP (10:25)
[2024-08-18 10:29] VITALS: BP 132/66; PULSE 85; TEMP 36.1; O2SAT 99
[2024-08-18 11:08] VITALS: BP 126/63; PULSE 78; TEMP 36
[2024-08-18 11:25] VITALS: BP 151/72; PULSE 77; TEMP 36; O2SAT 97
[2024-08-22 10:07] LABS: Basophils # 0.5 10^3/uL (0.0-0.1); Basophils % 1.6 %; Eosinophils % 0.1 %; Hematocrit 26.8 % (37-53); Lymphocytes # 1.9 10^3/uL (0.8-4.8); Lymphocytes % 6.8 %; Mean Corpuscular HGB Conc 30.6 g/dL (30-55); Mean Corpuscular Hemoglobin 30.3 pg (27-33); Mean Corpuscular Volume 98.9 fl (82-101); Monocytes # 2.6 10^3/uL (0.2-0.9); Monocytes % 9.6 %; Neutrophils # 17.06 10^3/uL (1.8-7.7); Neutrophils % 61.8 %; Nucleated Red Blood Cells # 5.3 /100WBC; Nucleated Red Blood Cells % 19.3 %; Red Blood Count 2.71 10^6/uL (3.85-5.65); Red Cell Distribution Width 20.6 % (12.1-15.1); White Blood Count 27.62 10^3/uL (3.29-11.43)
[2024-08-22 10:18] LABS: Platelet Count 9 10^3/cmm (157-399)
[2024-08-22 10:19] LABS: Slide Review Slide Review Perform
[2024-08-22 10:22] LABS: Alanine Aminotransferase 7 U/L (0-41); Albumin Level 3.9 g/dL (3.5-5.2); Alkaline Phosphatase 90 U/L (40-130); Anion Gap 14.3 (5-19); Aspartate Amino Transferase 12 U/L (0-40); Blood Urea Nitrogen 14 mg/dL (8-23); Calcium 8.4 mg/dL (8.5-10.5); Carbon Dioxide 27 mmol/L (22-29); Chloride 99 mmol/L (98-107); Creatinine Clr Calc Pharmacy 63.8635; Globulin 2.2 g/dL (1.3-4.6); Glucose 294 mg/dL (65-115); Osmolality Calculated 293 mOsm/kg (285-295); Potassium 4.3 mmol/L (3.5-5.1); Sodium 136 mmol/L (136-145); Total Bilirubin 0.7 mg/dL (0.15-1.2); Total Protein 6.1 g/dL (6.6-8.7)
[2024-08-22] MEDS: acetaminophen 325 mg Tablet 650 MG PO (12:32)
[2024-08-22] MEDS: hydrocortisone 100 mg/2 mL SDV IVP (12:33)
[2024-08-22] MEDS: diphenhydrAMINE 25 mg Capsule PO (12:33)
[2024-08-22 12:57] VITALS: BP 99/59; PULSE 86; RESP 16; TEMP 36; O2SAT 96
[2024-08-22 13:11] VITALS: BP 110/61; PULSE 83; RESP 16; TEMP 36; O2SAT 96
[2024-08-25] VITALS (7 sets, daily range): BP systolic 109–146; BP diastolic 59–87; PULSE 86–101; RESP 16–18; TEMP 36.1–36.4; O2SAT 96–99
[2024-08-25 10:13] LABS: Mean Corpuscular Hemoglobin 29.5 pg (27-33); Mean Corpuscular Volume 98.5 fl (82-101); Red Blood Count 2.64 10^6/uL (3.85-5.65); Red Cell Distribution Width 20.9 % (12.1-15.1)
[2024-08-25 10:30] LABS: Alanine Aminotransferase 6 U/L (0-41); Albumin Level 3.9 g/dL (3.5-5.2); Alkaline Phosphatase 94 U/L (40-130); Anion Gap 13.4 (5-19); Aspartate Amino Transferase 12 U/L (0-40); Blood Urea Nitrogen 15 mg/dL (8-23); Calcium 8.2 mg/dL (8.5-10.5); Carbon Dioxide 27 mmol/L (22-29); Chloride 100 mmol/L (98-107); Creatinine Clr Calc Pharmacy 71.8464; Globulin 2.9 g/dL (1.3-4.6); Glucose 269 mg/dL (65-115); Osmolality Calculated 292 mOsm/kg (285-295); Platelet Count 10 10^3/cmm (157-399); Potassium 4.4 mmol/L (3.5-5.1); Sodium 136 mmol/L (136-145); Total Bilirubin 0.9 mg/dL (0.15-1.2); Total Protein 6.8 g/dL (6.6-8.7); White Blood Count 31.62 10^3/uL (3.29-11.43)
[2024-08-25 10:36] LABS: Slide Review Slide Review Perform
[2024-08-25 10:37] LABS: Basophils Absolute 0.6 10^3/cmm (0.0-0.2); Eosinophils 0 %; Monocytes Absolute 0.9 10^3/cmm (0.1-0.6); Total Cells Counted 100 (0-100)
[2024-08-25 10:39] LABS: Absolute Neutrophil 22.8 10^3/cmm (1.4-6.5); Anisocytosis 2+; Band Neutrophils Absolute 4.7 10^3/cmm (0.0-1.2); Corrected White Blood Count 25.5 10^3/cmm (4.8-10.8); Lymphocytes 7 %; Lymphocytes Absolute 3.2 10^3/cmm (1.2-3.4); Macrocytosis 1+; Platelet Estimate Decreased (Normal); Polychromasia 1+; Segmented Neutrophils 57 %; Smudge Cells 1+
[2024-08-25] MEDS: hydrocortisone 100 mg/2 mL SDV IVP (11:07)
[2024-08-25] MEDS: acetaminophen 325 mg Tablet 650 MG PO (11:08)
[2024-08-25] MEDS: diphenhydrAMINE 25 mg Capsule PO (11:08)
[2024-08-25] MEDS: sodium chloride 0.9% 250 mL Bag IV (11:10)
[2024-08-29 10:04] LABS: Basophils # 0.4 10^3/uL (0.0-0.1); Basophils % 1.6 %; Eosinophils % 0.1 %; Hematocrit 28.1 % (37-53); Lymphocytes % 7.2 %; Mean Corpuscular Hemoglobin 29.4 pg (27-33); Mean Corpuscular Volume 94.9 fl (82-101); Monocytes # 2.3 10^3/uL (0.2-0.9); Monocytes % 8.5 %; Neutrophils # 16.99 10^3/uL (1.8-7.7); Neutrophils % 61.6 %; Nucleated Red Blood Cells # 3.4 /100WBC; Nucleated Red Blood Cells % 12.3 %; Red Blood Count 2.96 10^6/uL (3.85-5.65); Red Cell Distribution Width 20.1 % (12.1-15.1); White Blood Count 27.54 10^3/uL (3.29-11.43)
[2024-08-29 10:25] LABS: Alanine Aminotransferase < 5 U/L (0-41); Albumin Level 3.7 g/dL (3.5-5.2); Alkaline Phosphatase 82 U/L (40-130); Anion Gap 13.4 (5-19); Aspartate Amino Transferase 11 U/L (0-40); Blood Urea Nitrogen 18 mg/dL (8-23); Calcium 8.7 mg/dL (8.5-10.5); Carbon Dioxide 27 mmol/L (22-29); Chloride 97 mmol/L (98-107); Creatinine Clr Calc Pharmacy 63.8635; Glucose 279 mg/dL (65-115); Osmolality Calculated 288 mOsm/kg (285-295); Potassium 4.4 mmol/L (3.5-5.1); Sodium 133 mmol/L (136-145); Total Bilirubin 0.9 mg/dL (0.15-1.2); Total Protein 6.7 g/dL (6.6-8.7)
[2024-08-29] MEDS: acetaminophen 325 mg Tablet 650 MG PO (10:48)
[2024-08-29] MEDS: diphenhydrAMINE 25 mg Capsule PO (10:49)
[2024-08-29] MEDS: hydrocortisone 100 mg/2 mL SDV IVP (10:50)
[2024-08-29 11:12] LABS: Platelet Count 7 10^3/cmm (157-399)
[2024-08-29 11:14] LABS: Slide Review Slide Review Perform
[2024-08-29 12:02] VITALS: BP 125/74; PULSE 85; RESP 18; TEMP 35.9; O2SAT 96
[2024-08-29 12:22] VITALS: BP 128/71; PULSE 94; RESP 16; TEMP 35.9; O2SAT 95
[2024-08-29 12:30] VITALS: BP 128/71; PULSE 94; RESP 16; TEMP 35.9; O2SAT 95
[2024-09-01] VITALS (10 sets, daily range): BP systolic 104–131; BP diastolic 58–83; PULSE 82–96; RESP 17–18; TEMP 35.6–36.6; O2SAT 91–99
[2024-09-01 10:00] LABS: Hematocrit 25.3 % (37-53); Mean Corpuscular HGB Conc 30.8 g/dL (30-55); Mean Corpuscular Hemoglobin 29.5 pg (27-33); Mean Corpuscular Volume 95.8 fl (82-101); Red Blood Count 2.64 10^6/uL (3.85-5.65)
[2024-09-01 10:15] LABS: Alanine Aminotransferase 6 U/L (0-41); Albumin Level 3.8 g/dL (3.5-5.2); Alkaline Phosphatase 84 U/L (40-130); Anion Gap 15.2 (5-19); Aspartate Amino Transferase 10 U/L (0-40); Blood Urea Nitrogen 16 mg/dL (8-23); Calcium 8.7 mg/dL (8.5-10.5); Carbon Dioxide 26 mmol/L (22-29); Chloride 97 mmol/L (98-107); Creatinine Clr Calc Pharmacy 71.8464; Globulin 2.8 g/dL (1.3-4.6); Glucose 279 mg/dL (65-115); Osmolality Calculated 289 mOsm/kg (285-295); Potassium 4.2 mmol/L (3.5-5.1); Sodium 134 mmol/L (136-145); Total Bilirubin 0.6 mg/dL (0.15-1.2); Total Protein 6.6 g/dL (6.6-8.7)
[2024-09-01 10:22] LABS: Platelet Count 8 10^3/cmm (157-399)
[2024-09-01 10:27] LABS: Slide Review Slide Review Perform
[2024-09-01 10:28] LABS: Absolute Segmented Neutrophil 13.9 10/cmm (1.6-7.1); Band Neutrophils Absolute 2.4 10^3/cmm (0.0-1.2); Basophils Absolute 0.3 10^3/cmm (0.0-0.2); Eosinophils 0 %; Lymphocytes 5 %; Lymphocytes Absolute 1.3 10^3/cmm (1.2-3.4); Monocytes Absolute 2.4 10^3/cmm (0.1-0.6); Segmented Neutrophils 53 %; Total Cells Counted 100 (0-100)
[2024-09-01 10:29] LABS: Absolute Neutrophil 16.3 10^3/cmm (1.4-6.5); Anisocytosis 2+; Corrected White Blood Count 22.3 10^3/cmm (4.8-10.8); Macrocytosis 1+; Platelet Estimate Decreased (Normal); Polychromasia 1+; Smudge Cells 1+
[2024-09-01] MEDS: diphenhydrAMINE 25 mg Capsule PO (10:33)
[2024-09-01] MEDS: sodium chloride 0.9% 250 mL Bag IV (10:33)
[2024-09-01] MEDS: hydrocortisone 100 mg/2 mL SDV IVP (10:34)
[2024-09-01] MEDS: acetaminophen 325 mg Tablet 650 MG PO (10:34)
== END 2024-09-01 23:59 | disposition home or self-care (01) ==
PROVIDERS: Internal Medicine; Nurse Practitioner Family; PCP Family Medicine; Visit Provider Internal Medicine Hematology & Oncology
DX: D69.6 Thrombocytopenia, unspecified; Z79.899 Other long term (current) drug therapy; D64.9 Anemia, unspecified; Z53.9 Procedure and treatment not carried out, unspecified reason; D47.1 Chronic myeloproliferative disease
CPT/HCPCS: 36430; 36591; 80053; 85007; 85025; 86850; 86900; 86920; 96374; 96375; 99212; J1720; J7050; P9016; P9035; P9040; P9058

== ENCOUNTER 2024-09-07 09:45 | Oncology outpatient (recurring) (ONCR) | payer MEDICARE, SELFPAY ==
[2024-09-05] VITALS (10 sets, daily range): BP systolic 104–132; BP diastolic 55–67; PULSE 77–94; RESP 16–18; TEMP 35.9–37.2; O2SAT 95–99
[2024-09-05 10:05] LABS: Hematocrit 24.4 % (37-53); Mean Corpuscular HGB Conc 30.3 g/dL (30-55); Mean Corpuscular Hemoglobin 28.8 pg (27-33); Mean Corpuscular Volume 94.9 fl (82-101); Red Blood Count 2.57 10^6/uL (3.85-5.65); Red Cell Distribution Width 18.8 % (12.1-15.1); White Blood Count 27.38 10^3/uL (3.29-11.43)
[2024-09-05 10:11] LABS: Alanine Aminotransferase < 5 U/L (0-41); Albumin Level 3.6 g/dL (3.5-5.2); Alkaline Phosphatase 75 U/L (40-130); Anion Gap 15.6 (5-19); Aspartate Amino Transferase 8 U/L (0-40); Blood Urea Nitrogen 18 mg/dL (8-23); Calcium 8.4 mg/dL (8.5-10.5); Carbon Dioxide 25 mmol/L (22-29); Chloride 99 mmol/L (98-107); Globulin 2.7 g/dL (1.3-4.6); Glucose 247 mg/dL (65-115); Osmolality Calculated 290 mOsm/kg (285-295); Potassium 4.6 mmol/L (3.5-5.1); Sodium 135 mmol/L (136-145); Total Bilirubin 0.8 mg/dL (0.15-1.2); Total Protein 6.3 g/dL (6.6-8.7)
[2024-09-05 11:10] LABS: Platelet Count 7 10^3/cmm (157-399)
[2024-09-05 11:11] LABS: Absolute Neutrophil 22.2 10^3/cmm (1.4-6.5); Absolute Segmented Neutrophil 19.7 10/cmm (1.6-7.1); Band Neutrophils Absolute 2.5 10^3/cmm (0.0-1.2); Corrected White Blood Count 25.8 10^3/cmm (4.8-10.8); Eosinophils 0 %; Lymphocytes 2 %; Lymphocytes Absolute 2.2 10^3/cmm (1.2-3.4); Monocytes Absolute 0.3 10^3/cmm (0.1-0.6); Platelet Estimate Decreased (Normal); Polychromasia 2+; Segmented Neutrophils 72 %; Slide Review Slide Review Perform; Total Cells Counted 100 (0-100)
[2024-09-05 11:12] LABS: Macrocytosis 2+
[2024-09-05] MEDS: sodium chloride 0.9% 250 mL Bag IV (11:43)
[2024-09-05] MEDS: hydrocortisone 100 mg/2 mL SDV IVP (11:46)
[2024-09-05] MEDS: acetaminophen 325 mg Tablet 650 MG PO (11:47)
[2024-09-05] MEDS: diphenhydrAMINE 25 mg Capsule PO (11:50)
[2024-09-07 10:19] LABS: Basophils # 0.5 10^3/uL (0.0-0.1); Basophils % 1.8 %; Eosinophils % 0.1 %; Hematocrit 29.2 % (37-53); Lymphocytes # 1.7 10^3/uL (0.8-4.8); Lymphocytes % 6.6 %; Mean Corpuscular HGB Conc 31.8 g/dL (30-55); Mean Corpuscular Hemoglobin 30.1 pg (27-33); Mean Corpuscular Volume 94.5 fl (82-101); Monocytes % 7.6 %; Neutrophils % 62.7 %; Nucleated Red Blood Cells # 1.9 /100WBC; Nucleated Red Blood Cells % 7.5 %; Red Blood Count 3.09 10^6/uL (3.85-5.65); Red Cell Distribution Width 18.5 % (12.1-15.1); White Blood Count 25.67 10^3/uL (3.29-11.43)
[2024-09-07 10:23] LABS: Platelet Count 7 10^3/cmm (157-399)
[2024-09-07 10:33] LABS: Alanine Aminotransferase 6 U/L (0-41); Albumin Level 3.7 g/dL (3.5-5.2); Alkaline Phosphatase 76 U/L (40-130); Anion Gap 12.5 (5-19); Aspartate Amino Transferase 9 U/L (0-40); Blood Urea Nitrogen 16 mg/dL (8-23); Calcium 8.6 mg/dL (8.5-10.5); Carbon Dioxide 27 mmol/L (22-29); Chloride 99 mmol/L (98-107); Globulin 2.4 g/dL (1.3-4.6); Glucose 265 mg/dL (65-115); Osmolality Calculated 288 mOsm/kg (285-295); Potassium 4.5 mmol/L (3.5-5.1); Sodium 134 mmol/L (136-145); Total Bilirubin 0.9 mg/dL (0.15-1.2); Total Protein 6.1 g/dL (6.6-8.7)
[2024-09-07] MEDS: diphenhydrAMINE 25 mg Capsule PO (10:42)
[2024-09-07] MEDS: hydrocortisone 100 mg/2 mL SDV IVP (10:42)
[2024-09-07] MEDS: acetaminophen 325 mg Tablet 650 MG PO (10:42)
[2024-09-07 10:53] LABS: Slide Review Slide Review Perform
[2024-09-07 11:03] VITALS: BP 114/68; PULSE 85; RESP 18; TEMP 35.9; O2SAT 98
[2024-09-07 11:15] VITALS: BP 119/71; PULSE 84; PULSE 85; RESP 18; TEMP 36.4; TEMP 36.5; O2SAT 96; O2SAT 98
[2024-09-07 11:30] VITALS: BP 118/72; PULSE 88; RESP 18; TEMP 36.4; O2SAT 98
[2024-09-07 11:37] VITALS: BP 134/68; PULSE 80; RESP 18; TEMP 36; O2SAT 94
== END 2024-09-10 23:59 | disposition home or self-care (01) ==
PROVIDERS: PCP Family Medicine; Visit Provider Internal Medicine
DX: D69.6 Thrombocytopenia, unspecified; Z79.899 Other long term (current) drug therapy; Z53.9 Procedure and treatment not carried out, unspecified reason; D47.1 Chronic myeloproliferative disease
CPT/HCPCS: 36430; 80053; 85007; 85025; 86850; 86900; 86920; 96375; J1720; J7050; P9016

== ENCOUNTER 2024-09-22 08:34 | Observation (INO) | payer MEDICARE, SELFPAY ==
[2024-09-22] VITALS (24 sets, daily range): BP systolic 91–100; BP diastolic 51–63; PULSE 87–109; RESP 15–32; TEMP 35.8–37.1; O2SAT 91–99; BMI 26.7
--- NOTE | 2024-09-22 08:39 | ECG_ITS ---
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 Measurements Intervals [place] Rate: 97 P: 127 [place]: 177 QRS: -65 QRSD: 131 T: 79 QT: 379 QTc: 484 Interpretive Statements SINUS RHYTHM POSSIBLE LEFT ATRIAL ENLARGEMENT [-0.1mV P-WAVE IN V1/V2] LEFT AXIS DEVIATION [QRS AXIS < -30] INTRAVENTRICULAR CONDUCTION DELAY [130+ ms QRS DURATION] Compared to ECG 07/29/2024 10:54:09 Intraventricular conduction delay now present Myocardial infarct finding no longer present Electronically Signed On 09-23-2024 09:33:31 LIBRARY SUPERVISOR by Yunior Kellogg M.D. [id number] f
--- NOTE | 2024-09-22 08:39 | XR_ITS ---
WS: [id number] Exam: XR chest 1V portable [id number] Date/Time of Exam: 09/22/2024 8:44 AM Reason For Exam: dyspnea/cough Comparison 07/29/2024. Lungs are clear and fully inflated. Mild bibasal plaque atelectasis. Heart size top limits normal. Si gns of previous CABG surgery. The mediastinum is normal in contour. A LEFT subclavian port ends in th e lower one third of the SVC in good position. Moderate DJD of both shoulders. Anchoring screws in th e RIGHT humeral head. XR/XR chest 1V portable [id number] IMPRESSION: 1. No acute cardiopulmonary finding.
--- NOTE | 2024-09-22 08:51 | W.ED.CHESTPA ---
HPI - Chest Pain General: Chief Complaint: Chest Pain Stated Complaint: cp sent form onc Time Seen by Provider: 09/22/24 08:38 History of Present Illness: 79-year-old male presents emergency room with complaint of chest pain. Patient has a history of AML. He is anemic and was actually scheduled for blood transfusion today he is chronically anemic and is regularly getting platelets and transfusions of packed red blood cells. Today he began having chest pain radiating across the chest at the level of the nipple line. He did take 2 nitro he states the pain went from an 8 out of 10 to a 4 of 10. He has a chronic baseline productive cough that is unchanged she denies any hemoptysis. No PE no DVT. Associated symptoms: Deny abdominal pain, dyspnea or fever(s) Related Data Home Medications Medication Instructions Recorded Confirmed diclofenac sodium 1 % topical gel 4 gm topical QID 05/08/20 09/22/24 (Voltaren) magnesium 200 mg tablet 200 mg PO DAILY 05/08/20 09/22/24 potassium gluconate 595 mg (99 mg) 99 mg PO DAILY 05/08/20 09/22/24 tablet,extended release cetirizine 10 mg capsule (All Day 10 mg PO DAILY PRN Allergy Symptoms 02/02/23 09/22/24 Allergy (cetirizine)) cinnamon bark 500 mg capsule 500 mg PO BID 02/02/23 09/22/24 (Cinnamon) doxazosin 4 mg tablet (Cardura) 4 mg PO DAILY 02/06/23 09/22/24 omeprazole 10 mg capsule,delayed 10 mg PO DAILY 02/06/23 09/22/24 release cholecalciferol (vitamin D3) 50 50 mcg PO DAILY 03/11/23 09/22/24 mcg (2,000 unit) capsule ascorbic acid (vitamin C) 500 mg 500 mg PO DAILY 06/01/23 09/22/24 capsule cyanocobalamin (vitamin B-12) 1,000 mcg PO DAILY 06/01/23 09/22/24 1,000 mcg capsule food supplemt, lactose-reduced 1 ea PO TID 06/09/23 09/22/24 (Ensure oral liquid) nitroglycerin 0.4 mg sublingual 0.4 mg sublingual Q5M PRN Chest 09/22/24 09/22/24 tablet Pain Previous Rx's Medication Instructions Recorded acetaminophen 300 mg-codeine 30 mg 1 tab PO Q6H PRN pain #120 tabs 07/05/24 tablet Allergies Allergy/AdvReac Type Severity Reaction Status Date / Time No Known Allergies Allergy Verified 08/18/24 08:06 Review of Systems Const: Denies: fever(s) or chills Card: Reports: chest pain Resp: Denies: dyspnea GI: Denies: abdominal pain : Denies: dysuria, urinary frequency or urinary urgency Musc: Denies: neck pain or back pain Skin/Breast: Denies: rash PFSH ED PFSH: Medical History (Updated 09/22/24 @ 14:22 by Jose Farah DO) Primary myelofibrosis Peripheral arterial disease Coronary artery disease Hyperlipidemia GERD (gastroesophageal reflux disease) Type 2 diabetes mellitus Hypertension History of carotid artery disease Surgical History Hx of repair of rotator cuff History of back surgery History of coronary artery bypass surgery (2012) History of right-sided carotid endarterectomy (2016) Family History Father CAD (coronary artery disease) Brother Cancer Mother Cancer Denies family history of Diabetes Clotting disorder Dementia Hyperlipidemia Psychiatric illness Chronic kidney disease (CKD) Suicide Anesthesia complication Bleeding disorder Family history of premature coronary artery disease Lung disease Hypertension Stroke Social History Smoking and tobacco/nicotine status: current every day tobacco/nicotine user cigarettes Packs smoked per day: 1.5 Years cigarettes smoked: 64 Alcohol intake: current Alcohol intake frequency: holidays/special occasions only Physical Exam Const: GENERAL APPEARANCE: cooperative ORIENTATION/CONSCIOUSNESS: Yes awake, Yes oriented to person, Yes oriented to place and Yes oriented to time HENMT: COMMON NORMALS: normocephalic, atraumatic and hearing grossly normal bilaterally HEAD & SCALP: normocephalic and atraumatic Resp: COMMON NORMALS: normal respiratory effort, No retractions, No use of accessory muscles and clear to auscultation bilaterally AUSCULTATION: clear to auscultation bilaterally Cardio: COMMON NORMALS: regular rate, regular rhythm and No murmurs present (Cardio) RATE: regular rate RHYTHM: regular rhythm GI: COMMON NORMALS: Soft to palpation and No hepatosplenomegaly present AUSCULTATION: Yes normoactive bowel sounds PALPATION: Yes Soft to palpation, No Tenderness to palpation present (GI), No Guarding due to palpation present (GI) and Yes No hepatosplenomegaly present Extremity: COMMON NORMALS: normal to inspection, capillary refill normal, no clubbing, cyanosis or edema, no calf tenderness and no pedal edema Neuro: SENSORIUM/ORIENTATION: Yes oriented to person, Yes oriented to place and Yes oriented to time Skin: COMMON NORMALS: no rashes or lesions noted GENERAL SKIN EXAM: no rashes or lesions noted Course Vital Signs: Vital signs: Vital Signs Temperature 98.2 F 09/22/24 11:58 Pulse Rate 90 09/22/24 13:26 Respiratory Rate 18 09/22/24 13:54 Blood Pressure 94/60 09/22/24 13:26 Pulse Oximetry 97 09/22/24 13:26 Oxygen Delivery Me thod Room Air 09/22/24 10:40 MDM - Chest Pain Medical Decision Making Patient is having chest pain is relieved by nitro troponin elevated. Because of his thrombocytopenia we cannot anticoagulate. Discussed treatment goals the patient mostly just wants to do comfort care. Discussed with the hospitalist also discussed with oncology they agree. Placed patient placed on observation will transfuse and reevaluate Dr. Fernandez is seeing the patient orders written Medical Records I reviewed the patient's medical records. Lab Data I reviewed the patient's lab results. Radiology Impressions Chest X-Ray 09/22/24 08:39 IMPRESSION: 1. No acute cardiopulmonary finding. Laboratory Results Estimat Average Glucose 146 09/22/24 08:20 Hemoglobin A1c 6.7 % (4.0-6.0) H 09/22/24 08:20 Troponin T Baseline 110 ng/L (0-15) H* 09/22/24 08:20 Troponin T 120 Minute 95.81 ng/L (0-15) H 09/22/24 10:45 Delta Troponin T -14.19 ABS# (0-10) L 09/22/24 10:45 Blood Type A Positive 09/19/24 10:07 Rho(D) Type Rh positive 09/19/24 10:07 Antibody Screen Negative 09/19/24 10:07 Crossmatch See Detail 09/19/24 10:07 All radiology interpretation(s) finalized by discharge Discharge Plan Discharge Patient Disposition: Admitted As Inpatient Admit Provider: Nghia Fernandez Clinical Impression: Non-ST elevation GA (NSTEMI), Anemia, Thrombocytopenia, Primary myelofibrosis Condition: Stable Coding Level of Care Code ED Numerical Control Nesting Operator for Thony Mederos
[2024-09-22] MEDS: aspirin 81 mg Chew Tablet 324 MG PO (09:50)
[2024-09-22 10:03] LABS: Troponin(5th) Baseline 110 ng/L (0-15)
--- NOTE | 2024-09-22 10:55 | ECG_ITS ---
[facility] [place] Test Date: 2024-09-22 Pat Name: Mathew Rivera Department: Room: Gender: Male Racebook Writer: : 1945 Requested By: Jose Major Order Number: [id number] Agapito MD: Yunior Kellogg M.D. Measurements Intervals [place] Rate: 101 P: 53 [place]: 193 QRS: -52 QRSD: 130 T: 85 QT: 357 QTc: 463 Interpretive Statements SINUS TACHYCARDIA LEFT ANTERIOR FASCICULAR BLOCK [QRS AXIS <= -45, QR IN I, RS IN II] ST DEPRESSION, CONSIDER SUBENDOCARDIAL INJURY [0.1+ mV ST DEPRESSION] Compared to ECG 09/22/2024 08:38:56 Left anterior fascicular block now present ST (T wave) deviation now present Sinus rhythm no longer present Left-axis deviation no longer present Intraventricular conduction delay no longer present Electronically Signed On 09-23-2024 22:10:44 FLOATMAN by Yunior Kellogg M.D. [id number]
[2024-09-22 11:15] LABS: Troponin 5 2HR 95.81 ng/L (0-15)
[2024-09-22 11:17] LABS: Troponin 5 2HR Delta -14.19 ABS# (0-10)
[2024-09-22] MEDS: acetaminophen 325 mg Tablet 650 MG PO (11:38)
[2024-09-22] MEDS: diphenhydrAMINE 25 mg Capsule PO (11:38)
[2024-09-22] MEDS: morphine 4 mg/mL SDV 1 mL 1 MG IVP (11:39)
[2024-09-22] MEDS: sodium chloride 0.9% 100 mL Bag 50 ML IV (12:00)
--- NOTE | 2024-09-22 12:20 | PM.HP ---
Providers/Chief Complaint Admitting Physician: Nghia Fernandez MD Primary Care Provider: William Cardenas Chief Complaint: cp sent form onc History of Present Illness Mathew Rivera is a 79 year old male with history of myelofibrosis, and according to the patient possible AML he was scheduled to have a blood transfusion and platelet transfusion today. He presented to the emergency department because of chest pain. He had taken a nitroglycerin with some relief. He has been getting transfused 1-2 times a week recently. Denies any active bleeding. Currently is transfusion dependent. No recent fevers. Reports minimal discomfort now and reports he has this on a chronic basis, usually worse when he needs a transfusion. No nausea and vomiting currently. He is short of breath frequently. Has past history of coronary disease, carotid disease, and history of bypass surgery in the past. Review of Systems General: Reports: 10 or more systems reviewed and unremarkable except in HPI and below Card: Reports: chest pain Resp: Reports: dyspnea Medications/Allergies Home Medications Medication Instructions Recorded Confirmed Last Taken Type diclofenac sodium 1 % topical gel 4 gm topical QID 05/08/20 09/22/24 09/10/23 History (Voltaren) magnesium 200 mg tablet 200 mg PO DAILY 05/08/20 09/22/24 08/27/23 History potassium gluconate 595 mg (99 mg) 99 mg PO DAILY 05/08/20 09/22/24 08/27/23 History tablet,extended release cetirizine 10 mg capsule (All Day 10 mg PO DAILY PRN Allergy Symptoms 02/02/23 09/22/24 08/27/23 History Allergy (cetirizine)) cinnamon bark 500 mg capsule 500 mg PO BID 02/02/23 09/22/24 08/27/23 History (Cinnamon) doxazosin 4 mg tablet (Cardura) 4 mg PO DAILY 02/06/23 09/22/24 08/27/23 History omeprazole 10 mg capsule,delayed 10 mg PO DAILY 02/06/23 09/22/24 08/27/23 History release cholecalciferol (vitamin D3) 50 50 mcg PO DAILY 03/11/23 09/22/24 08/27/23 History mcg (2,000 unit) capsule ascorbic acid (vitamin C) 500 mg 500 mg PO DAILY 06/01/23 09/22/24 08/27/23 History capsule cyanocobalamin (vitamin B-12) 1,000 mcg PO DAILY 06/01/23 09/22/24 08/27/23 History 1,000 mcg capsule food supplemt, lactose-reduced 1 ea PO TID 06/09/23 09/22/24 08/27/23 History (Ensure oral liquid) acetaminophen 300 mg-codeine 30 mg 1 tab PO Q6H PRN pain #120 tabs 07/05/24 09/22/24 Unknown Rx tablet nitroglycerin 0.4 mg sublingual 0.4 mg sublingual Q5M PRN Chest 09/22/24 09/22/24 Unknown History tablet Pain Allergies Allergy/AdvReac Type Severity Reaction Status Date / Time No Known Allergies Allergy Verified 08/18/24 08:06 PFSH Acute PFSH: Medical History (Updated 09/22/24 @ 12:34 by Nghia Fernandez MD) Primary myelofibrosis Peripheral arterial disease Coronary artery disease Hyperlipidemia GERD (gastroesophageal reflux disease) Type 2 diabetes mellitus Hypertension History of carotid artery disease Surgical History Hx of repair of rotator cuff History of back surgery History of coronary artery bypass surgery (2012) History of right-sided carotid endarterectomy (2016) Family History Father CAD (coronary artery disease) Brother Cancer Mother Cancer Denies family history of Diabetes Clotting disorder Dementia Hyperlipidemia Psychiatric illness Chronic kidney disease (CKD) Suicide Anesthesia complication Bleeding disorder Family history of premature coronary artery disease Lung disease Hypertension Stroke Social History Smoking and tobacco/nicotine status: current every day tobacco/nicotine user cigarettes Packs smoked per day: 1.5 Years cigarettes smoked: 64 Alcohol intake: current Alcohol intake frequency: holidays/special occasions only Vitals/I&O/Wt Last Vital Signs Temp 98.2 F 09/22/24 11:58 Pulse 97 09/22/24 11:58 Resp 16 09/22/24 11:58 BP 92/55 09/22/24 11:58 Pulse Ox 97 09/22/24 11:30 O2 Del Method Room Air 09/22/24 10:40 09/21/24 09/22/24 09/22/24 22:59 06:59 14:59 Intake Total 0 / 0 Balance 0 / 0 Weight last 48 hrs Weight 73.936 kg Physical Exam Narrative: General Exam is a pale appearing white male, who appears tired, who reports some mild chest discomfort. He seems alert, oriented and interactive with his daughter which is also in the room. HEENT: Atraumatic and normocephalic. Conjunctiva pale. Oropharynx clear Neck is supple, carotid endarterectomy scars noted Cardiovascular regular rate and rhythm with a 2/6 systolic murmur. Borderline tachycardic. Lungs clear no wheezing or crackles Abdomen is soft nontender. Bowel sounds noted exam is deferred Extremities 1+ edema bilaterally. Skin is dry Neuro no obvious focal deficits Data Other Labs: CBC reviewed. White blood cell count 33, hemoglobin 5.2, platelet count of 9. 2% blasts Sodium 132, glucose 377. Troponin 110 and repeat 95 Creatinine 1.0 Chest x-ray no infiltrate. Port and prior bypass surgery noted. I reviewed this as well. EKG per my evaluation demonstrates sinus rhythm left axis deviation left atrial enlargement poor R wave progression nonspecific ST-T wave changes. Intraventricular conduction delay also noted. A&P Assessment and plan (1) Primary myelofibrosis: Patient is transfusion dependent secondary to his myelofibrosis. Cannot rule out AML transformation. Doubt blast crisis with only 2% peripherally but cannot completely rule out He is now transfusion dependent and has been for quite some time for platelets and blood. He has been getting transfusions once to twice weekly He has symptoms of shortness of breath, and chest discomfort. Will proceed with observation, transfusion of blood, likely 2 units, and then cautiously transfuse platelets. I clarified his CODE STATUS. He is DNR. He would like transfusion, but realizes that aggressive treatment in regards to potential coronary disease or other problems is extremely limited considering his myelofibrosis (2) Chest pain: Discussed with patient elevated troponin Discussed with him that I feel reluctant to anticoagulate him or even give him aspirin (antiplatelets) considering his severe low platelets, and severe anemia. He acknowledges this. Qualifiers: Chest pain type: unspecified Qualified Code(s): R07.9 - Chest pain, unspecified Plan Chronic pain. Add oxycodone as needed, morphine as needed Other medical problems as outlined by past medical history Allow natural SCDs for DVT prophylaxis, anticoagulation contraindicated secondary to severe anemia and thrombocytopenia Attestations Medical Necessity Statement*: Will need less than 2 midnight stay for evaluation and treatment of severe anemia, thrombocytopenia with symptoms Diagnoses Primary myelofibrosis D47.1 Chest pain R07.9 Chest pain type: unspecified Time Spent (min) 55
[2024-09-22 13:32] LABS: Estmated Average Glucose 146; Hemoglobin A1C 6.7 % (4.0-6.0)
[2024-09-22] MEDS: oxyCODONE 5 mg IR Tab/Cap PO (13:54)
[2024-09-22] MEDS: ondansetron 2 mg/ML SDV 2 mL 4 MG IVP (13:55)
--- NOTE | 2024-09-22 14:39 | ECG_ITS ---
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 Measurements Intervals [place] Rate: 103 P: 52 GA: 203 QRS: -56 QRSD: 126 T: 78 QT: 356 QTc: 467 Interpretive Statements SINUS TACHYCARDIA LEFT AXIS DEVIATION [QRS AXIS < -30] MODERATE INTRAVENTRICULAR CONDUCTION DELAY [105+ ms QRS DURATION, 80+ ms Q/S IN V1/V2, NO Q AND 60+ ms R IN I/aVL/V5/V6] MODERATE ST DEPRESSION [0.05+ mV ST DEPRESSION] Compared to ECG 09/22/2024 10:55:30 Left-axis deviation now present Intraventricular conduction delay now present Left anterior fascicular block no longer present ST (T wave) deviation still present Electronically Signed On 09-23-2024 22:09:08 WASTEWATER DESIGN ENGINEER by Yunior Kellogg M.D. [id number]
[2024-09-22 15:43] LABS: Troponin 5 6HR 196.9 ng/L (0-15); Troponin 5 6HR Delta 86.9 ng/L (0-12)
[2024-09-22] MEDS: sennosides-docusate Tablet 1 TAB PO (18:07)
[2024-09-22] MEDS: pantoprazole DR 40 mg Tablet PO (18:07)
[2024-09-22 19:50] LABS: Hematocrit 21.3 % (37-53)
--- NOTE | 2024-09-22 20:16 | PC.NURSE ---
Addendum entered by Mere Jennings RN 09/22/24 20:18: Verified with Dr. Fernandez that he wants 2 units of platelets given. Original Note: Staff in lab states that second unit of platelets won't be here until around midnight and that they will call to notify me when it is ready.
--- NOTE | 2024-09-22 20:34 | PC.NURSE ---
Dr. Andujar notified of hemoglobin of 5.2 prior to blood transfusions. Notified that patient's hemoglobin after receiving 2 units of blood is 6.8. Notified that patient has been refusing Lasix. No new orders received.
[2024-09-23] VITALS (16 sets, daily range): BP systolic 86–102; BP diastolic 49–67; PULSE 86–104; RESP 16–30; TEMP 36.5–37.6; O2SAT 85–99
[2024-09-23] MEDS: oxyCODONE 5 mg IR Tab/Cap PO (03:15)
[2024-09-23 06:18] LABS: Alanine Aminotransferase 6 U/L (0-41); Albumin Level 3.3 g/dL (3.5-5.2); Alkaline Phosphatase 73 U/L (40-130); Anion Gap 14.4 (5-19); Aspartate Amino Transferase 19 U/L (0-40); Blood Urea Nitrogen 37 mg/dL (8-23); Calcium 8.2 mg/dL (8.5-10.5); Carbon Dioxide 26 mmol/L (22-29); Chloride 97 mmol/L (98-107); Creatinine Clr Calc Pharmacy 52.7383; Globulin 2.5 g/dL (1.3-4.6); Glucose 334 mg/dL (65-115); Osmolality Calculated 298 mOsm/kg (285-295); Potassium 4.4 mmol/L (3.5-5.1); Sodium 133 mmol/L (136-145); Total Bilirubin 1.1 mg/dL (0.15-1.2); Total Protein 5.8 g/dL (6.6-8.7)
[2024-09-23 07:08] LABS: Mean Corpuscular HGB Conc 32.5 g/dL (30-55); Mean Corpuscular Hemoglobin 28.1 pg (27-33); Mean Corpuscular Volume 86.6 fl (82-101); Platelet Count 47 10^3/cmm (157-399); Red Blood Count 2.31 10^6/uL (3.85-5.65); Red Cell Distribution Width 17.9 % (12.1-15.1)
[2024-09-23 07:09] LABS: Absolute Neutrophil 19.1 10^3/cmm (1.4-6.5); Absolute Segmented Neutrophil 17.3 10/cmm (1.6-7.1); Band Neutrophils Absolute 1.7 10^3/cmm (0.0-1.2); Blastocytes 0 % (0-0); Corrected White Blood Count 27.8 10^3/cmm (4.8-10.8); Eosinophils 0 %; Lymphocytes 6 %; Lymphocytes Absolute 2.6 10^3/cmm (1.2-3.4); Monocytes Absolute 3.2 10^3/cmm (0.1-0.6); Platelet Estimate Decreased (Normal); Segmented Neutrophils 60 %; Total Cells Counted 100 (0-100)
--- NOTE | 2024-09-23 07:26 | PC.NURSE ---
notified nurse of Bp at 0715
[2024-09-23] MEDS: sennosides-docusate Tablet 1 TAB PO (08:04)
[2024-09-23] MEDS: pantoprazole DR 40 mg Tablet PO (08:04)
[2024-09-23] MEDS: sodium chloride 0.9% 100 mL Bag 50 ML IV (11:00)
--- NOTE | 2024-09-23 11:27 | P.DS_ITS ---
Discharge Providers Date of Admission: 09/22/24 13:03 Date of Discharge: September 23, 2024 Attending Provider at Admission: Nghia Fernandez MD Attending Provider at Discharge: Nghia Fernandez MD Primary Care Provider: William Cardenas Diagnoses at Discharge Discharge Diagnosis (1) Primary myelofibrosis: Status: Acute (2) Chest pain: Status: Acute Qualifiers: Chest pain type: unspecified Qualified Code(s): R07.9 - Chest pain, unspecified Reason for Visit Reason for Visit: cp sent form onc Hospital Course Hospital Course Patient is an 79-year-old white male with history of myelofibrosis which is transfusion dependent, for which he reports no other treatment is available. He reports chronic chest pain, and came into the emergency department under the direction of his oncologist. His hemoglobin was 5.2, and platelet count about 9000. He was not actively bleeding. EKG showed some nonspecific ST-T wave flattening and depression. Troponin at baseline was 110, repeat 95, and repeat 196. With transfusion, chest discomfort went away. He received 2 units initially, and then 2 units of platelets cautiously considering his recent chest pain. He then, the next morning, was noted to have a hemoglobin of 6.5 and received 1 more unit of blood. He refused any Lasix in between units, and did require 3 L of oxygen which he reports he intermittently uses at home. We discussed his CODE STATUS on arrival, and he reported he was DNR. We discussed that it would be difficult to treat his underlying coronary disease with his myelofibrosis secondary to his platelets being significantly low and him being anemic. He is not really a candidate for anticoagulation, antiplatelet agents. His blood pressure is too low to really warrant any ingestion of beta-sidney. He does use nitroglycerin on occasion at home already. He reports he has chest discomfort on a daily basis, and that he has been told overall not much can be done about it. He realizes he is in the end stages of his disease, but would like to continue transfusions if possible. The day of discharge she asked that he be discharged home. He does not like staying in the hospital, does not want any IV Lasix, and overall feels better. He realizes that his life expectancy is short. I communicated this to his daughter as well the day prior. He was able to ask questions and agrees with the plan. He has repeat lab arranged by oncology scheduled for Thursday. He was instructed to keep this appointment. Physical Exam Narrative: General Exam no distress Neck is supple Cardiovascular regular rate and rhythm Lungs clear but with diminished breath sounds in the bases Abdomen is soft Extremities 1+ edema bilaterally. Discharge Data Studies Completed and Pending Completed Studies During Hospitalization Category Date Time Status XR chest 1V portable [id number] Stat Exams 09/22/24 08:39 Completed Radiology Impressions Chest X-Ray 09/22/24 08:39 IMPRESSION: 1. No acute cardiopulmonary finding. Laboratory Results WBC 28.90 10^3/uL (3.29-11.43) H 09/23/24 05:22 WBC Cancelled 09/23/24 05:22 Corrected WBC 27.8 10^3/cmm (4.8-10.8) H 09/23/24 05:22 Corrected WBC Cancelled 09/23/24 05:22 RBC 2.31 10^6/uL (3.85-5.65) L 09/23/24 05:22 RBC Cancelled 09/23/24 05:22 Hgb 6.50 g/dL (11.27-16.99) L* 09/23/24 05:22 Hgb Cancelled 09/23/24 05:22 Hct 20.0 % (37-53) L* 09/23/24 05:22 Hct Cancelled 09/23/24 05:22 MCV 86.6 fl (82-101) 09/23/24 05:22 MCV Cancelled 09/23/24 05:22 MCH 28.1 pg (27-33) 09/23/24 05:22 MCH Cancelled 09/23/24 05:22 MCHC 32.5 g/dL (30-55) D 09/23/24 05:22 MCHC Cancelled 09/23/24 05:22 RDW 17.9 % (12.1-15.1) H 09/23/24 05:22 RDW Cancelled 09/23/24 05:22 Plt Count 47 10^3/cmm (157-399) L D 09/23/24 05:22 Plt Count Cancelled 09/23/24 05:22 MPV Cancelled 09/23/24 05:22 MPV Not Reportable 09/23/24 05:22 Gran % Cancelled 09/23/24 05:22 Neut % (Auto) Cancelled 09/23/24 05:22 Lymph % (Auto) Cancelled 09/23/24 05:22 [place] % (Auto) Cancelled 09/23/24 05:22 Eos % (Auto) Cancelled 09/23/24 05:22 Baso % (Auto) Cancelled 09/23/24 05:22 Neut # (Auto) Cancelled 09/23/24 05:22 Lymph # (Auto) Cancelled 09/23/24 05:22 [place] # (Auto) Cancelled 09/23/24 05:22 Eos # (Auto) Cancelled 09/23/24 05:22 Baso # (Auto) Cancelled 09/23/24 05:22 Absolute Gran (auto) Cancelled 09/23/24 05:22 Nucleated RBC % (auto) Cancelled 09/23/24 05:22 Total Counted 100 (0-100) 09/23/24 05:22 Atypical Lymphs % 3.0 % (0-5) 09/23/24 05:22 Absolute Neutrophils 19.1 10^3/cmm (1.4-6.5) H 09/23/24 05:22 Segmented Neutrophils 60 % 09/23/24 05:22 Band Neutrophils 6.0 % 09/23/24 05:22 Absolute Lymphocytes 2.6 10^3/cmm (1.2-3.4) 09/23/24 05:22 Lymphocytes (Manual) 6 % 09/23/24 05:22 Monocytes (Manual) 11.0 % 09/23/24 05:22 Absolute Monocytes 3.2 10^3/cmm (0.1-0.6) H 09/23/24 05:22 Eosinophils (Manual) 0 % 09/23/24 05:22 Absolute Eosinophils 0.0 10^3/cmm (0.0-0.7) 09/23/24 05:22 Basophils (Manual) 0.0 % 09/23/24 05:22 Absolute Basophils 0.0 10^3/cmm (0.0-0.2) 09/23/24 05:22 Metamyelocytes 5.0 % 09/23/24 05:22 Myelocytes 3.0 % 09/23/24 05:22 Promyelocytes 2.0 % 09/23/24 05:22 Nucleated RBCs 4.0 /100WBC (0-1) H 09/23/24 05:22 Nucleated RBCs # Cancelled 09/23/24 05:22 Blast Cells 0 % (0-0) 09/23/24 05:22 Platelet Estimate Decreased (Normal) 09/23/24 05:22 Sodium 133 mmol/L (136-145) L 09/23/24 05:22 Potassium 4.4 mmol/L (3.5-5.1) 09/23/24 05:22 Chloride 97 mmol/L (98-107) L 09/23/24 05:22 Carbon Dioxide 26 mmol/L (22-29) 09/23/24 05:22 Anion Gap 14.4 (5-19) 09/23/24 05:22 BUN 37 mg/dL (8-23) H 09/23/24 05:22 Creatinine 1.1 mg/dL (0.7-1.2) 09/23/24 05:22 GFR Calculation Not Reportable 09/23/24 05:22 Glucose 334 mg/dL (65-115) H 09/23/24 05:22 Estimat Average Glucose 146 09/22/24 08:20 Hemoglobin A1c 6.7 % (4.0-6.0) H 09/22/24 08:20 Calculated Osmolality 298 mOsm/kg (285-295) H 09/23/24 05:22 Calcium 8.2 mg/dL (8.5-10.5) L 09/23/24 05:22 Magnesium 2.0 mg/dL (1.7-2.3) 09/23/24 05:22 Total Bilirubin 1.1 mg/dL (0.15-1.2) 09/23/24 05:22 AST 19 U/L (0-40) 09/23/24 05:22 ALT 6 U/L (0-41) 09/23/24 05:22 Alkaline Phosphatase 73 U/L (40-130) 09/23/24 05:22 Troponin T Baseline 110 ng/L (0-15) H* 09/22/24 08:20 Troponin T 120 Minute 95.81 ng/L (0-15) H 09/22/24 10:45 Delta Troponin T -14.19 ABS# (0-10) L 09/22/24 10:45 Troponin T Hi Sens 6Hr 196.9 ng/L (0-15) H 09/22/24 14:36 Troponin T Hi Sens 6Hr Delta 86.9 ng/L (0-12) H* 09/22/24 14:36 Total Protein 5.8 g/dL (6.6-8.7) L 09/23/24 05:22 Albumin 3.3 g/dL (3.5-5.2) L 09/23/24 05:22 Globulin 2.5 g/dL (1.3-4.6) 09/23/24 05:22 Blood Type A Positive 09/23/24 05:22 Rho(D) Type Rh positive 09/23/24 05:22 Antibody Screen Negative 09/23/24 05:22 Crossmatch See Detail 09/23/24 05:22 Vitals Last Vital Signs Temp 97.9 F 09/23/24 10:53 Pulse 88 09/23/24 10:53 Resp 19 H 09/23/24 10:53 BP 91/51 09/23/24 10:53 Pulse Ox 89 L 09/23/24 10:53 O2 Del Method Nasal Cannula 09/23/24 07:25 O2 Flow Rate 4 09/23/24 07:25 Discharge Plan Discharge Patient Disposition: Home Condition: Stable Prescriptions: Continued diclofenac sodium [Voltaren] 1 % gel 4 gm TOPICAL QID Rx Instructions: apply to single knee, ankle, foot; for foot includes sole/toes/top of foot magnesium 200 mg tablet 200 mg PO DAILY potassium gluconate 595 mg (99 mg) tablet extended release 99 mg PO DAILY ascorbic acid (vitamin C) 500 mg capsule 500 mg PO DAILY cyanocobalamin (vitamin B-12) 1,000 mcg capsule 1,000 mcg PO DAILY cholecalciferol (vitamin D3) 50 mcg (2,000 unit) capsule 50 mcg PO DAILY cinnamon bark [Cinnamon] 500 mg capsule 500 mg PO BID All Day Allergy (cetirizine) 10 mg capsule 10 mg PO DAILY PRN (Reason: Allergy Symptoms) Ensure Liquid 1 ea PO TID acetaminophen-codeine 300-30 mg tablet 1 tab PO Q6H PRN (Reason: pain) Qty: 120 0RF omeprazole 10 mg Capsule,Delayed Release(Dr/Ec) 10 mg PO DAILY doxazosin [Cardura] 4 mg tablet 4 mg PO DAILY nitroglycerin 0.4 mg Tablet, Sublingual 0.4 mg SUBLINGUAL Q5M PRN (Reason: Chest Pain) Rx Instructions: do not exceed 3 doses per episode Discharge Orders: Discharge Order (Routine); Ordered 09/23/24 Ordered By: Nghia Fernandez Referrals: Ozzie Cardenas MD [Primary Care Provider] - 09/26/24 11:20 am Discharge Diet: Cardiac Discharge Activity: Increase activity as tolerated Patient Instructions: Opioid Safety Activity Restrictions/Additional Instructions: Follow-up with your oncologist for routine checks of your platelets and CBCs as you have been doing. I believe your next check is Thursday Return for any concerns. Please discharge on oxygen, which he has at home, 3 L which she is on currently. Discharge Attestations Time Spent in Discharge Care*: greater than 30 min Quality Metrics Clinical Quality Measures [ No reported AMI, CVA or VTE this stay] Coding Level of Care Code 96985 Total time (in minutes) for Discharge: 40 Diagnoses Primary myelofibrosis D47.1 Chest pain R07.9 Chest pain type: unspecified
[2024-09-23 11:30] LABS: Glucose Point of Care 409 mg/dL (70-110)
== END 2024-09-23 14:03 | disposition home or self-care (01) ==
LOC: ER 08:52 → MEDSURG 13:03
PROVIDERS: Admitting Provider Internal Medicine; Emergency Provider Family Medicine; PCP Family Medicine; Visit Provider Internal Medicine
DX: D47.1 Chronic myeloproliferative disease (principal); R07.9 Chest pain, unspecified; Z66 Do not resuscitate; I25.10 Atherosclerotic heart disease of native coronary artery without angina pectoris; E78.5 Hyperlipidemia, unspecified; E11.9 Type 2 diabetes mellitus without complications; I10 Essential (primary) hypertension; K21.9 Gastro-esophageal reflux disease without esophagitis; F17.210 Nicotine dependence, cigarettes, uncomplicated
CPT/HCPCS: 36415; 36416; 36430; 71045; 80053; 82962; 83036; 83735; 84484; 85007; 85014; 85018; 85025; 85027; 86850; 86900; 86920; 93005; 96365; 96366; 96375; 99285; G0378; J2270; J2405; P9016; P9035; P9040

== ENCOUNTER 2024-09-26 09:45 | Oncology outpatient (recurring) (ONCR) | payer MEDICARE, SELFPAY ==
[2024-09-12] VITALS (14 sets, daily range): BP systolic 94–136; BP diastolic 52–79; PULSE 78–98; RESP 16–18; TEMP 35.7–37.4; O2SAT 92–99
[2024-09-12 10:14] LABS: Basophils # 0.3 10^3/uL (0.0-0.1); Basophils % 1.3 %; Eosinophils % 0.2 %; Hematocrit 23.6 % (37-53); Lymphocytes # 1.4 10^3/uL (0.8-4.8); Lymphocytes % 6.1 %; Mean Corpuscular HGB Conc 30.5 g/dL (30-55); Mean Corpuscular Volume 95.2 fl (82-101); Monocytes # 1.5 10^3/uL (0.2-0.9); Monocytes % 6.3 %; Neutrophils # 14.84 10^3/uL (1.8-7.7); Neutrophils % 64.8 %; Nucleated Red Blood Cells # 1.1 /100WBC; Nucleated Red Blood Cells % 4.8 %; Red Blood Count 2.48 10^6/uL (3.85-5.65); Red Cell Distribution Width 18.8 % (12.1-15.1)
[2024-09-12 10:30] LABS: Platelet Count 7 10^3/cmm (157-399)
[2024-09-12 10:31] LABS: Slide Review Slide Review Perform
[2024-09-12 10:47] LABS: Alanine Aminotransferase < 5 U/L (0-41); Albumin Level 3.6 g/dL (3.5-5.2); Alkaline Phosphatase 77 U/L (40-130); Anion Gap 14.4 (5-19); Aspartate Amino Transferase 7 U/L (0-40); Blood Urea Nitrogen 21 mg/dL (8-23); Calcium 8.4 mg/dL (8.5-10.5); Carbon Dioxide 26 mmol/L (22-29); Chloride 100 mmol/L (98-107); Globulin 2.7 g/dL (1.3-4.6); Glucose 279 mg/dL (65-115); Osmolality Calculated 295 mOsm/kg (285-295); Potassium 4.4 mmol/L (3.5-5.1); Sodium 136 mmol/L (136-145); Total Bilirubin 0.6 mg/dL (0.15-1.2); Total Protein 6.3 g/dL (6.6-8.7)
[2024-09-12] MEDS: hydrocortisone 100 mg/2 mL SDV IVP (11:34)
[2024-09-12] MEDS: sodium chloride 0.9% 250 mL Bag IV (11:34)
[2024-09-12] MEDS: acetaminophen 325 mg Tablet 650 MG PO (11:35)
[2024-09-12] MEDS: diphenhydrAMINE 25 mg Capsule PO (11:37)
[2024-09-15] VITALS (14 sets, daily range): BP systolic 98–132; BP diastolic 61–82; PULSE 16–91; RESP 16–18; TEMP 36.3–36.7; O2SAT 97–100
[2024-09-15 10:28] LABS: Hematocrit 24.7 % (37-53); Mean Corpuscular HGB Conc 31.2 g/dL (30-55); Mean Corpuscular Hemoglobin 28.6 pg (27-33); Mean Corpuscular Volume 91.8 fl (82-101); Red Blood Count 2.69 10^6/uL (3.85-5.65); Red Cell Distribution Width 18.1 % (12.1-15.1); White Blood Count 26.85 10^3/uL (3.29-11.43)
[2024-09-15 10:48] LABS: Alanine Aminotransferase < 5 U/L (0-41); Albumin Level 3.7 g/dL (3.5-5.2); Alkaline Phosphatase 73 U/L (40-130); Anion Gap 12.4 (5-19); Aspartate Amino Transferase 7 U/L (0-40); Blood Urea Nitrogen 24 mg/dL (8-23); Calcium 8.7 mg/dL (8.5-10.5); Carbon Dioxide 26 mmol/L (22-29); Chloride 99 mmol/L (98-107); Globulin 2.9 g/dL (1.3-4.6); Glucose 272 mg/dL (65-115); Osmolality Calculated 290 mOsm/kg (285-295); Potassium 4.4 mmol/L (3.5-5.1); Sodium 133 mmol/L (136-145); Total Bilirubin 0.6 mg/dL (0.15-1.2); Total Protein 6.6 g/dL (6.6-8.7)
[2024-09-15] MEDS: diphenhydrAMINE 25 mg Capsule PO (10:59)
[2024-09-15] MEDS: acetaminophen 325 mg Tablet 650 MG PO (10:59)
[2024-09-15] MEDS: hydrocortisone 100 mg/2 mL SDV IVP (11:04)
[2024-09-15 11:09] LABS: Platelet Count 7 10^3/cmm (157-399)
[2024-09-15 11:10] LABS: Slide Review Slide Review Perform
[2024-09-15 11:15] LABS: Absolute Neutrophil 20.9 10^3/cmm (1.4-6.5); Corrected White Blood Count 25.1 10^3/cmm (4.8-10.8); Eosinophils 0 %; Lymphocytes 7 %; Lymphocytes Absolute 2.1 10^3/cmm (1.2-3.4); Monocytes Absolute 0.8 10^3/cmm (0.1-0.6); Platelet Estimate Decreased (Normal); Polychromasia Trace; Segmented Neutrophils 67 %; Total Cells Counted 100 (0-100)
[2024-09-15 11:16] LABS: Anisocytosis 1+; Smudge Cells 1+
[2024-09-19] VITALS (12 sets, daily range): BP systolic 101–130; BP diastolic 55–69; PULSE 68–93; RESP 16–18; TEMP 35.8–36.8; O2SAT 91–98
[2024-09-19 10:28] LABS: Hematocrit 21.5 % (37-53); Mean Corpuscular HGB Conc 31.2 g/dL (30-55); Mean Corpuscular Hemoglobin 28.2 pg (27-33); Mean Corpuscular Volume 90.3 fl (82-101); Red Blood Count 2.38 10^6/uL (3.85-5.65); White Blood Count 25.65 10^3/uL (3.29-11.43)
[2024-09-19 10:45] LABS: Alanine Aminotransferase < 5 U/L (0-41); Albumin Level 3.7 g/dL (3.5-5.2); Alkaline Phosphatase 70 U/L (40-130); Anion Gap 14.3 (5-19); Aspartate Amino Transferase 7 U/L (0-40); Blood Urea Nitrogen 26 mg/dL (8-23); Calcium 8.7 mg/dL (8.5-10.5); Carbon Dioxide 25 mmol/L (22-29); Chloride 99 mmol/L (98-107); Globulin 2.6 g/dL (1.3-4.6); Glucose 258 mg/dL (65-115); Osmolality Calculated 292 mOsm/kg (285-295); Potassium 4.3 mmol/L (3.5-5.1); Sodium 134 mmol/L (136-145); Total Bilirubin 0.7 mg/dL (0.15-1.2); Total Protein 6.3 g/dL (6.6-8.7)
[2024-09-19 11:15] LABS: Absolute Segmented Neutrophil 18.7 10/cmm (1.6-7.1); Band Neutrophils Absolute 2.1 10^3/cmm (0.0-1.2); Eosinophils 0 %; Lymphocytes 1 %; Lymphocytes Absolute 1.5 10^3/cmm (1.2-3.4); Platelet Count 7 10^3/cmm (157-399); Segmented Neutrophils 73 %; Slide Review Slide Review Perform; Total Cells Counted 100 (0-100)
[2024-09-19 11:16] LABS: Absolute Neutrophil 20.8 10^3/cmm (1.4-6.5); Macrocytosis 1+; Platelet Estimate Decreased (Normal); Polychromasia 1+
[2024-09-19] MEDS: acetaminophen 325 mg Tablet 650 MG PO (11:58)
[2024-09-19] MEDS: hydrocortisone 100 mg/2 mL SDV IVP (11:59)
[2024-09-19] MEDS: diphenhydrAMINE 25 mg Capsule PO (12:02)
[2024-09-22 08:40] LABS: Mean Corpuscular HGB Conc 30.6 g/dL (30-55); Mean Corpuscular Hemoglobin 26.9 pg (27-33); Mean Corpuscular Volume 88.1 fl (82-101); Red Blood Count 1.93 10^6/uL (3.85-5.65); Red Cell Distribution Width 19.3 % (12.1-15.1)
[2024-09-22 08:57] LABS: Alanine Aminotransferase < 5 U/L (0-41); Albumin Level 3.6 g/dL (3.5-5.2); Alkaline Phosphatase 75 U/L (40-130); Anion Gap 18.5 (5-19); Aspartate Amino Transferase 7 U/L (0-40); Blood Urea Nitrogen 34 mg/dL (8-23); Calcium 8.3 mg/dL (8.5-10.5); Carbon Dioxide 23 mmol/L (22-29); Chloride 95 mmol/L (98-107); Globulin 2.5 g/dL (1.3-4.6); Glucose 377 mg/dL (65-115); Osmolality Calculated 297 mOsm/kg (285-295); Potassium 4.5 mmol/L (3.5-5.1); Sodium 132 mmol/L (136-145); Total Bilirubin 0.6 mg/dL (0.15-1.2); Total Protein 6.1 g/dL (6.6-8.7)
[2024-09-22 09:21] LABS: Platelet Count 9 10^3/cmm (157-399); Slide Review Slide Review Perform; White Blood Count 33.61 10^3/uL (3.29-11.43)
[2024-09-22 09:22] LABS: Absolute Segmented Neutrophil 19.5 10/cmm (1.6-7.1); Band Neutrophils Absolute 3.4 10^3/cmm (0.0-1.2); Eosinophils 0 %; Lymphocytes 2 %; Lymphocytes Absolute 1.3 10^3/cmm (1.2-3.4); Monocytes Absolute 0.3 10^3/cmm (0.1-0.6); Total Cells Counted 100 (0-100)
[2024-09-22 09:24] LABS: Blastocytes 2 % (0-0); Corrected White Blood Count 32.3 10^3/cmm (4.8-10.8)
[2024-09-22 09:25] LABS: Absolute Neutrophil 22.9 10^3/cmm (1.4-6.5); Macrocytosis 1+; Platelet Estimate Decreased (Normal); Polychromasia 1+; Segmented Neutrophils 58 %
[2024-09-26] VITALS (10 sets, daily range): BP systolic 87–110; BP diastolic 50–63; PULSE 78–96; RESP 18; TEMP 35.9–36.6; O2SAT 94–98
[2024-09-26 09:18] LABS: Basophils # 0.2 10^3/uL (0.0-0.1); Basophils % 0.7 %; Eosinophils % 0.1 %; Lymphocytes # 1.1 10^3/uL (0.8-4.8); Lymphocytes % 3.8 %; Mean Corpuscular HGB Conc 32.9 g/dL (30-55); Mean Corpuscular Hemoglobin 28.2 pg (27-33); Mean Corpuscular Volume 85.9 fl (82-101); Monocytes # 2.1 10^3/uL (0.2-0.9); Monocytes % 7.5 %; Neutrophils # 20.06 10^3/uL (1.8-7.7); Neutrophils % 70.6 %; Nucleated Red Blood Cells # 1.3 /100WBC; Nucleated Red Blood Cells % 4.4 %; Red Blood Count 2.41 10^6/uL (3.85-5.65); Red Cell Distribution Width 17.3 % (12.1-15.1); White Blood Count 28.43 10^3/uL (3.29-11.43)
[2024-09-26 09:39] LABS: Alanine Aminotransferase < 5 U/L (0-41); Albumin Level 3.4 g/dL (3.5-5.2); Alkaline Phosphatase 76 U/L (40-130); Anion Gap 12.9 (5-19); Aspartate Amino Transferase 7 U/L (0-40); Blood Urea Nitrogen 37 mg/dL (8-23); Calcium 8.4 mg/dL (8.5-10.5); Carbon Dioxide 28 mmol/L (22-29); Chloride 92 mmol/L (98-107); Globulin 2.8 g/dL (1.3-4.6); Glucose 375 mg/dL (65-115); Osmolality Calculated 292 mOsm/kg (285-295); Potassium 3.9 mmol/L (3.5-5.1); Sodium 129 mmol/L (136-145); Total Bilirubin 0.9 mg/dL (0.15-1.2); Total Protein 6.2 g/dL (6.6-8.7)
[2024-09-26 10:14] LABS: Hematocrit 20.7 % (37-53); Platelet Count 11 10^3/cmm (157-399)
[2024-09-26 10:15] LABS: Slide Review Slide Review Perform
[2024-09-26] MEDS: acetaminophen 325 mg Tablet 650 MG PO (11:34)
[2024-09-26] MEDS: diphenhydrAMINE 25 mg Capsule PO (11:34)
[2024-09-26] MEDS: hydrocortisone 100 mg/2 mL SDV IVP (11:34)
[2024-09-26] MEDS: sodium chloride 0.9% 250 mL Bag IV (11:35)
== END 2024-09-26 23:59 | disposition home or self-care (01) ==
PROVIDERS: Internal Medicine; PCP Family Medicine; Visit Provider Internal Medicine Medical Oncology
DX: D64.9 Anemia, unspecified; Z53.9 Procedure and treatment not carried out, unspecified reason; D69.6 Thrombocytopenia, unspecified; D47.1 Chronic myeloproliferative disease; Z79.899 Other long term (current) drug therapy
CPT/HCPCS: 36430; 36591; 80053; 85007; 85025; 86850; 86900; 86920; 96374; 96375; J1720; J7050; P9016; P9035; P9040

== ENCOUNTER 2024-09-29 08:18 | Oncology outpatient (recurring) (ONCR) | payer MEDICARE, SELFPAY ==
[2024-09-29] VITALS (13 sets, daily range): BP systolic 77–106; BP diastolic 47–67; PULSE 85–99; RESP 16–18; TEMP 36–36.7; O2SAT 96–99
[2024-09-29 09:01] LABS: Mean Corpuscular HGB Conc 31.3 g/dL (30-55); Mean Corpuscular Hemoglobin 27.6 pg (27-33); Mean Corpuscular Volume 88.2 fl (82-101); Red Blood Count 2.03 10^6/uL (3.85-5.65); Red Cell Distribution Width 17.1 % (12.1-15.1)
[2024-09-29 09:16] LABS: Alanine Aminotransferase < 5 U/L (0-41); Alkaline Phosphatase 66 U/L (40-130); Anion Gap 11.9 (5-19); Aspartate Amino Transferase 6 U/L (0-40); Blood Urea Nitrogen 35 mg/dL (8-23); Calcium 7.8 mg/dL (8.5-10.5); Carbon Dioxide 25 mmol/L (22-29); Chloride 94 mmol/L (98-107); Globulin 2.5 g/dL (1.3-4.6); Glucose 416 mg/dL (65-115); Osmolality Calculated 290 mOsm/kg (285-295); Potassium 3.9 mmol/L (3.5-5.1); Sodium 127 mmol/L (136-145); Total Bilirubin 0.8 mg/dL (0.15-1.2); Total Protein 5.5 g/dL (6.6-8.7)
[2024-09-29] MEDS: diphenhydrAMINE 25 mg Capsule PO (09:29)
[2024-09-29] MEDS: acetaminophen 325 mg Tablet 650 MG PO (09:30)
[2024-09-29] MEDS: hydrocortisone 100 mg/2 mL SDV IVP (09:30)
[2024-09-29 10:12] LABS: Platelet Count 12 10^3/cmm (157-399)
[2024-09-29 10:13] LABS: Hematocrit 17.9 % (37-53); White Blood Count 36.13 10^3/uL (3.29-11.43)
[2024-09-29 10:18] LABS: Slide Review Slide Review Perform
[2024-09-29 10:19] LABS: Absolute Segmented Neutrophil 20.2 10/cmm (1.6-7.1); Band Neutrophils Absolute 2.5 10^3/cmm (0.0-1.2); Eosinophils 0 %; Lymphocytes 10 %; Lymphocytes Absolute 3.6 10^3/cmm (1.2-3.4); Monocytes Absolute 1.1 10^3/cmm (0.1-0.6); Segmented Neutrophils 56 %; Total Cells Counted 100 (0-100)
[2024-09-29 10:20] LABS: Absolute Neutrophil 22.8 10^3/cmm (1.4-6.5); Anisocytosis Trace; Corrected White Blood Count 32.8 10^3/cmm (4.8-10.8); Giant Platelets Trace; Platelet Estimate Decreased (Normal); Poikilocytosis 1+; Polychromasia 1+
== END 2024-10-11 23:59 | disposition home or self-care (01) ==
PROVIDERS: PCP Family Medicine; Visit Provider Internal Medicine
DX: D47.1 Chronic myeloproliferative disease; D64.9 Anemia, unspecified; D69.6 Thrombocytopenia, unspecified; F17.210 Nicotine dependence, cigarettes, uncomplicated; I10 Essential (primary) hypertension; E78.00 Pure hypercholesterolemia, unspecified; E11.9 Type 2 diabetes mellitus without complications; I25.10 Atherosclerotic heart disease of native coronary artery without angina pectoris; I65.29 Occlusion and stenosis of unspecified carotid artery; I73.9 Peripheral vascular disease, unspecified; Z79.899 Other long term (current) drug therapy
CPT/HCPCS: 36430; 80053; 85007; 85025; 86850; 86900; 86920; 99213; J1720; P9016; P9035; P9040; P9055

== ENCOUNTER 2024-10-02 11:34 | Emergency (ER) | payer MEDICARE, SELFPAY ==
[2024-10-02 11:37] VITALS: BP 84/48; PULSE 83; RESP 25; TEMP 35.4; O2SAT 95
--- NOTE | 2024-10-02 11:37 | XRR_ITS ---
PROCEDURE INFORMATION: Exam: XR Chest Exam date and time: 10/02/2024 11:51 AM Age: 79 years old Clinical indication: Pain; Chest pressure; Additional info: Chest pain TECHNIQUE: Imaging protocol: Radiologic exam of the chest. Views: 1 view. COMPARISON: CR XR chest 1V portable [id number] 09/22/2024 8:49 AM FINDINGS: Tubes, catheters and devices: There are sternal wires consistent with previous sternotomy incision. Left subclavian infusion port tip is in the cavoatrial junction. Lungs: Unremarkable. No consolidation. Pleural spaces: Unremarkable. No pleural effusion. No pneumothorax. Heart/Mediastinum: Unremarkable. No cardiomegaly. Bones/joints: Moderate degenerative disease of bilateral acromioclavicular joints. There are moderate degenerative changes of the glenohumeral joints. Post right rotator cuff repair. XR/XR chest 1V portable [id number] IMPRESSION: No acute cardiopulmonary process.
--- NOTE | 2024-10-02 11:39 | ECG_ITS ---
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 Measurements Intervals [place] Rate: 83 P: 15 VA: 213 QRS: -56 QRSD: 142 T: 125 QT: 411 QTc: 485 Interpretive Statements SINUS RHYTHM WITH FIRST DEGREE AV BLOCK POSSIBLE LEFT ATRIAL ENLARGEMENT [-0.1mV P-WAVE IN V1/V2] LEFT AXIS DEVIATION [QRS AXIS < -30] LEFT BUNDLE BRANCH BLOCK [120+ ms QRS DURATION, 80+ ms Q/S IN V1/V2, 85+ ms R IN I/aVL/V5/V6] ST DEPRESSION, CONSIDER SUBENDOCARDIAL INJURY [0.1+ mV ST DEPRESSION] Compared to ECG 09/22/2024 15:28:06 First degree AV block now present Left bundle-branch block now present Sinus tachycardia no longer present Intraventricular conduction delay no longer present ST (T wave) deviation still present Electronically Signed On 10-03-2024 20:12:50 SPACE ENGINEER by Yunior Kellogg M.D. [id number]
--- NOTE | 2024-10-02 11:45 | ED_ITS ---
HPI - Weakness 2 General: Chief complaint: General Medical Stated complaint: hyperglycemia Time Seen by Provider: 10/02/24 11:37 History of Present Illness: 79-year-old man with a history of transf usion dependent primary myelofibrosis, peripheral artery disease, coronary artery disease hyperlipidemia, GERD, type 2 diabetes, hypertension and carotid disease who presents to the emergency room with weakness, hypotension and hyperglycemia. He is somewhat agitated at times. And then is lucid at others. He is hypothermic on presentation. Hypotensive on presentation. No focal motor deficits. Review of Systems 2 General: Reports: ROS unobtainable due to medical condition PFS ED 2 PFS: Medical History Primary myelofibrosis Peripheral arterial disease Coronary artery disease Hyperlipidemia GERD (gastroesophageal reflux disease) Type 2 diabetes mellitus Hypertension History of carotid artery disease Surgical History Hx of repair of rotator cuff History of back surgery History of coronary artery bypass surgery (2012) History of right-sided carotid endarterectomy (2016) Family History Father CAD (coronary artery disease) Brother Cancer Mother Cancer Denies family history of Diabetes Clotting disorder Dementia Hyperlipidemia Psychiatric illness Chronic kidney disease (CKD) Suicide Anesthesia complication Bleeding disorder Family history of premature coronary artery disease Lung disease Hypertension Stroke Social History Smoking and tobacco/nicotine status: current every day tobacco/nicotine user cigarettes Packs smoked per day: 1.5 Years cigarettes smoked: 64 Alcohol intake: current Alcohol intake frequency: holidays/special occasions only Physical Exam 2 Narrative: EXAM NARRATIVE: General: Alert, no acute distress. Skin: Warm, dry. Head: Normocephalic, atraumatic. Neck: Supple, trachea midline. Eye: Extraocular movements are intact. Ears, nose, mouth and throat: Very dry oral mucosa Cardiovascular: Regular, Normal peripheral perfusion. Respiratory: Lungs are clear to auscultation, respirations are non-labored, breath sounds are equal, Symmetrical chest wall expansion. Gastrointestinal: Soft, Nontender, Non distended Musculoskeletal: Normal ROM, no deformity. Neurological: Alert with waxing and waning agitation, No focal neurological deficit observed. Psychiatric: Agitated at times. Course 2 Vital Signs: Vital signs: Vital Signs Temperature 95.8 F L 10/02/24 11:37 Pulse Rate 104 H 10/02/24 12:10 Respiratory Rate 25 H 10/02/24 11:37 Blood Pressure 92/69 10/02/24 12:10 Pulse Oximetry 99 10/02/24 12:10 Oxygen Delivery Me thod Room Air 10/02/24 12:10 MDM - Weakness Medical Decision Making Medical decision making: Differential diagnosis for patient presenting with generalized weakness including but not limited to and based on the above HPI, review of systems and physical exam: Sepsis. Dehydration. Renal failure. Electrolyte abnormalities. Anemia. Congestive heart failure. Hypotension. Coronary syndrome. Hepatitis. Cirrhosis. Infections such as pneumonia, urinary tract infection, [place]ne illness, Cellulitis, Viral infections including influenza and Covid-19. Workup: labwork and lab/exam driven imaging ordered to evaluate, rule in and rule out above pathologies. Chest x-ray: Sternotomy wires. No acute process. No infiltrate. No pneumothorax. This was reviewed and interpreted by myself the emergency room physician. I also reviewed the radiology report. AB.2 [birth year]1995 with a bicarb of 12. Blood glucose is 740. Ketones were negative Lab Review: Laboratory results were reviewed and interpreted by myself the emergency room physician. Worsening leukocytosis. Hemoglobin is only 4.5. It was 5.63 days ago. Platelets are down to 20. Glucose is 804 on lab work. He has some acute renal failure with a BUN and creatinine of 51 and 1.4. Lactate was 17. I reviewed the patient's medical record. Patient had been quite agitated and then became unresponsive. No pulse was palpated. Initially was PEA. The son had been present and requested initially that everything be done. However I discussed with him that just last week he had talked to Dr. Manuel and had declared that he did not want CPR and that he was a DNR CODE STATUS. The son says he wants to follow his wishes and so CPR was stopped almost immediately. Patient was asystole. Reexamination: Patient has passed. No heart sounds auscultated. Pupils fixed and dilated. No spontaneous breathing. No pulse palpated Time of 12:39 PM. 10/02/24 Assessment and plan: Sepsis/septic shock Hyperglycemia Anemia Lactic acidosis ?3 L normal saline bolus have been ordered. He is received 2 L prior to passing. Levophed was being ordered. I had given him some insulin as well. Meropenem and Zyvox have been ordered as well. - Evaluation and treatment of this problem were appropriate in the emergency setting. Lab Data 10/02/24 12:15 10/02/24 12:15 Laboratory Results WBC 72.03 10^3/uL (3.29-11.43) H* 10/02/24 12:15 RBC 1.62 10^6/uL (3.85-5.65) L 10/02/24 12:15 Hgb 4.50 g/dL (11.27-16.99) L* 10/02/24 12:15 Hct 15.7 % (37-53) L* 10/02/24 12:15 MCV 96.9 fl (82-101) 10/02/24 12:15 MCH 27.8 pg (27-33) 10/02/24 12:15 MCHC 28.7 g/dL (30-55) L 10/02/24 12:15 RDW 17.8 % (12.1-15.1) H 10/02/24 12:15 Plt Count 20 10^3/cmm (157-399) L* 10/02/24 12:15 MPV Not Reportable 10/02/24 12:15 Neut % (Auto) [employer] 10/02/24 12:15 Lymph % (Auto) [employer] 10/02/24 12:15 Lynn % (Auto) [employer] 10/02/24 12:15 Eos % (Auto) [employer] 10/02/24 12:15 Baso % (Auto) [employer] 10/02/24 12:15 Neut # (Auto) [employer] 10/02/24 12:15 Lymph # (Auto) [employer] 10/02/24 12:15 Lynn # (Auto) [employer]ic 10/02/24 12:15 Eos # (Auto) [employer]ic 10/02/24 12:15 Baso # (Auto) [employer] 10/02/24 12:15 Nucleated RBC % (auto) [employer] 10/02/24 12:15 Total Counted 100 (0-100) 10/02/24 12:15 Atypical Lymphs % 0.0 % (0-5) 10/02/24 12:15 Absolute Neutrophils 51.9 10^3/cmm (1.4-6.5) H 10/02/24 12:15 Segmented Neutrophils 62 % 10/02/24 12:15 Band Neutrophils 10.0 % 10/02/24 12:15 Absolute Lymphocytes 5.0 10^3/cmm (1.2-3.4) H 10/02/24 12:15 Lymphocytes (Manual) 7 % 10/02/24 12:15 Monocytes (Manual) 7.0 % 10/02/24 12:15 Absolute Monocytes 5.0 10^3/cmm (0.1-0.6) H 10/02/24 12:15 Eosinophils (Manual) 0 % 10/02/24 12:15 Absolute Eosinophils 0.0 10^3/cmm (0.0-0.7) 10/02/24 12:15 Basophils (Manual) 0.0 % 10/02/24 12:15 Absolute Basophils 0.0 10^3/cmm (0.0-0.2) 10/02/24 12:15 Metamyelocytes 4.0 % 10/02/24 12:15 Myelocytes 8.0 % 10/02/24 12:15 Promyelocytes 2.0 % 10/02/24 12:15 Nucleated RBCs # [employer] 10/02/24 12:15 Blast Cells 0 % (0-0) 10/02/24 12:15 Platelet Estimate Decreased (Normal) 10/02/24 12:15 Specimen Type Arterial 10/02/24 11:40 Sample Site Radial, right 10/02/24 11:40 ABG pH 7.25 (7.35-7.45) L 10/02/24 11:40 ABG pCO2 26.8 mmHg (35-45) L 10/02/24 11:40 ABG pO2 94.9 mmHg (80.0-100.0) 10/02/24 11:40 ABG PO2/FiO2 Ratio 451 10/02/24 11:40 ABG HCO3 11.7 mmol/L (22-26) L 10/02/24 11:40 ABG O2 Saturation 97.6 10/02/24 11:40 ABG Base Excess -14.3 mmol/L (-2.0-2.0) L 10/02/24 11:40 Gary Test Pos 10/02/24 11:40 A-a O2 Gradient 2.8 mmHg (5-10) L 10/02/24 11:40 Hematocrit 13.8 % (42-52) L 10/02/24 11:40 Hgb O2 Saturation 94.1 % (95-100) L 10/02/24 11:40 Carboxyhemoglobin 1.7 %THgb (0.4-20.1) 10/02/24 11:40 Methemoglobin 1.9 % (0.4-1.5) H 10/02/24 11:40 Total Hemoglobin < 5.0 g/dL (14-18) L 10/02/24 11:40 Sodium 124.0 mmol/L (131-143) L 10/02/24 11:40 Potassium 4.4 mmol/L (3.5-5.0) 10/02/24 11:40 Glucose 740.0 mg/dL (70-115) H 10/02/24 11:40 Ionized Calcium 1.1 mmol/L (1.1-1.4) 10/02/24 11:40 O2 Delivery Device Room air 10/02/24 11:40 FiO2 21.0 % 10/02/24 11:40 Utilization Review Coordinator ID Walci 10/02/24 11:40 Sodium 126 mmol/L (136-145) L 10/02/24 12:15 Potassium 4.9 mmol/L (3.5-5.1) 10/02/24 12:15 Chloride 85 mmol/L (98-107) L 10/02/24 12:15 Carbon Dioxide 12 mmol/L (22-29) L 10/02/24 12:15 Anion Gap 33.9 (5-19) H 10/02/24 12:15 BUN 51 mg/dL (8-23) H 10/02/24 12:15 Creatinine 1.4 mg/dL (0.7-1.2) H 10/02/24 12:15 GFR Calculation Not Reportable 10/02/24 12:15 Glucose 804 mg/dL (65-115) H* 10/02/24 12:15 POC Glucose > 600 mg/dL (70-110) H* 10/02/24 11:45 Calculated Osmolality 315 mOsm/kg (285-295) H 10/02/24 12:15 Lactic Acid 16.9 mmol/L (0.5-2.2) H* 10/02/24 12:15 Calcium 7.8 mg/dL (8.5-10.5) L 10/02/24 12:15 Total Bilirubin 0.7 mg/dL (0.15-1.2) 10/02/24 12:15 AST 10 U/L (0-40) 10/02/24 12:15 ALT < 5 U/L (0-41) 10/02/24 12:15 Alkaline Phosphatase 69 U/L (40-130) 10/02/24 12:15 Troponin T Baseline 256 ng/L (0-15) H* 10/02/24 12:15 C-Reactive Protein 35.4 mg/L (0.0-4.9) H 10/02/24 12:15 Total Protein 4.7 g/dL (6.6-8.7) L 10/02/24 12:15 Albumin 2.9 g/dL (3.5-5.2) L 10/02/24 12:15 Globulin 1.8 g/dL (1.3-4.6) 10/02/24 12:15 Serum Ketones Negative (Negative) 10/02/24 12:15 All radiology interpretation(s) finalized by discharge Discharge Plan Discharge Patient Disposition: Clinical Impression: Sepsis, Cardiac arrest, Condition: Stable Prescriptions: No Action diclofenac sodium [Voltaren] 1 % gel 4 gm TOPICAL QID Rx Instructions: apply to single knee, ankle, foot; for foot includes sole/toes/top of foot magnesium 200 mg tablet 200 mg PO DAILY potassium gluconate 595 mg (99 mg) tablet extended release 99 mg PO DAILY ascorbic acid (vitamin C) 500 mg capsule 500 mg PO DAILY cyanocobalamin (vitamin B-12) 1,000 mcg capsule 1,000 mcg PO DAILY cholecalciferol (vitamin D3) 50 mcg (2,000 unit) capsule 50 mcg PO DAILY cinnamon bark [Cinnamon] 500 mg capsule 500 mg PO BID All Day Allergy (cetirizine) 10 mg capsule 10 mg PO DAILY PRN (Reason: Allergy Symptoms) Ensure Liquid 1 ea PO TID oxycodone-acetaminophen 5-325 mg tablet 1 tab PO TID PRN (Reason: pain) 30 Days Qty: 90 0RF omeprazole 10 mg Capsule,Delayed Release(Dr/Ec) 10 mg PO DAILY doxazosin [Cardura] 4 mg tablet 4 mg PO DAILY nitroglycerin 0.4 mg Tablet, Sublingual 0.4 mg SUBLINGUAL Q5M PRN (Reason: Chest Pain) Qty: 30 0RF Rx Instructions: do not exceed 3 doses per episode Referrals: Micky Byrnes DO [Primary Care Provider] - Coding Level of Care Code ED Anatomical Embalmer for Chg Fwd Related Data Home Medications Medication Instructions Recorded Confirmed diclofenac sodium 1 % topical gel 4 gm topical QID 05/08/20 09/29/24 (Voltaren) magnesium 200 mg tablet 200 mg PO DAILY 05/08/20 09/29/24 potassium gluconate 595 mg (99 mg) 99 mg PO DAILY 05/08/20 09/29/24 tablet,extended release cetirizine 10 mg capsule (All Day 10 mg PO DAILY PRN Allergy Symptoms 02/02/23 09/29/24 Allergy (cetirizine)) cinnamon bark 500 mg capsule 500 mg PO BID 02/02/23 09/29/24 (Cinnamon) doxazosin 4 mg tablet (Cardura) 4 mg PO DAILY 02/06/23 09/29/24 omeprazole 10 mg capsule,delayed 10 mg PO DAILY 02/06/23 09/29/24 release cholecalciferol (vitamin D3) 50 50 mcg PO DAILY 03/11/23 09/29/24 mcg (2,000 unit) capsule ascorbic acid (vitamin C) 500 mg 500 mg PO DAILY 06/01/23 09/29/24 capsule cyanocobalamin (vitamin B-12) 1,000 mcg PO DAILY 06/01/23 09/29/24 1,000 mcg capsule food supplemt, lactose-reduced 1 ea PO TID 06/09/23 09/29/24 (Ensure oral liquid) Previous Rx's Medication Instructions Recorded nitroglycerin 0.4 mg sublingual 0.4 mg sublingual Q5M PRN Chest 09/23/24 tablet Pain #30 tabs oxycodone-acetaminophen 5 mg-325 1 tab PO TID PRN pain 30 days #90 09/29/24 mg tablet tabs Allergies Allergy/AdvReac Type Severity Reaction Status Date / Time No Known Allergies Allergy Verified 09/29/24 09:32
[2024-10-02 11:51] LABS: ABG PCO2 26.8 mmHg (35-45); ABG PH Result 7.25 (7.35-7.45); Alveolar-Arterial Oxygen Gradi 2.8 mmHg (5-10); Arterial Blood Gas Hematocrit 13.8 % (42-52); Base Excess ABG -14.3 mmol/L (-2.0-2.0); Blood Gas Allen Test Pos; Blood Gas Operator Identificat WALCI; Blood Gas Sample Site Radial, right; Blood Gas Sample Type Arterial; Carboxyhemoglobin 1.7 %THgb (0.4-20.1); HCO3 ABG 11.7 mmol/L (22-26); HGB O2 Sat 94.1 % (95-100); Ionized Calcium Level - ABG 1.1 mmol/L (1.1-1.4); Methemoglobin 1.9 % (0.4-1.5); Oxygen Device ROOM AIR; Oxygen Saturation ABG 97.6; PO2 ABG 94.9 mmHg (80.0-100.0); PO2 FiO2 Ratio Arterial Blood 451; Potassium Level - ABG 4.4 mmol/L (3.5-5.0); Total Hemoglobin < 5.0 g/dL (14-18)
[2024-10-02 11:55] VITALS: BP 83/48; PULSE 88
[2024-10-02] MEDS: sodium chloride 0.9% 1,000 ML 999 ML IV ×2 (11:57)
[2024-10-02 11:58] LABS: Glucose Point of Care > 600 mg/dL (70-110)
[2024-10-02] MEDS: insulin regular-human 100 units/1 mL 10 UNIT IVP (12:05)
[2024-10-02 12:10] VITALS: BP 92/69; PULSE 104; O2SAT 99
[2024-10-02 12:32] LABS: Mean Corpuscular HGB Conc 28.7 g/dL (30-55); Mean Corpuscular Hemoglobin 27.8 pg (27-33); Mean Corpuscular Volume 96.9 fl (82-101); Red Blood Count 1.62 10^6/uL (3.85-5.65); Red Cell Distribution Width 17.8 % (12.1-15.1)
[2024-10-02 12:43] LABS: Ketone (Acetest) Serum Negative (Negative)
--- NOTE | 2024-10-02 12:44 | PC.NURSE ---
THIS NURSE WAS ONE ON ONE WITH PATIENT SINCE PATIENT ARRIVED. PATIENT HAD BLOOD SUGAR THAT READ HI ON THE ACCUCHECK MACHINE AND A BLOOD PRESSURE OF 84/48 AND A RECTAL TEMPERATURE OF 95.8 UPON ARRIVAL. PATIENT OXYGENATION WAS 95% ON ROOM AIR. PATIENT WAS PLACED ON BAIRHUGGER TO WARM PATIENT UP. PATIENT HAD 2L OF FLUID RUNNING AND HAD BEEN GIVEN 10 UNITS OF INSULIN. PATIENT WAS FIGHTING THIS NURSE AND LAB WHILE TRYING TO GET VITALS AND BLOOD DRAWN. ONCE BLOOD WAS FINALLY DRAWN, CHEST X-RAY WAS BEING DONE. PATIENT BECAME MORE LETHARGIC WHILE OBTAINING THE CHEST X-RAY. THIS NURSE AND X-RAY TECH ATTEMPTED TO OBTAIN A BLOOD PRESSURE. AFTER 4 DIFFERENT PLACEMENTS OF THE BLOOD PRESSURE CUFF, A BLOOD PRESSURE OF 64/39 WAS OBTAINED WITH A HEART RATE OF 40 AT 1235. DIFFICULT TO OBTAIN OXYGEN SATURATION DUE TO PATIENT BEING COLD AND MOVING AROUND. THIS NURSE STEPPED OUT OF THE ROOM TO NOTIFY PHYSICIAN OF BLOOD PRESSURE WHEN CHARGE NURSE, CECILIO ASKEW, NOTICED PATIENT WAS HAVING ABOUT 2 BEATS PER MINUTE ON THE MONITOR. THIS NURSE AND CHARGE NURSE WENT TO ROOM AND PATIENT WAS UNRESPONSIVE. PHYSICIAN NOTIFIED. NO PULSE PALPATED BY THIS NURSE OR CHARGE NURSE. CODE BLUE CALLED. COMPRESSIONS INITIATED UNTIL CLARIFICATION OF CODE STATUS. FAMILY IN WAITING ROOM WAS NOTIFIED AND TOLD DR. VERAS THAT PATIENT WAS A DNR. COMPRESSIONS WERE STOPPED. NO PULSE DETECTED. TOD 1239.
[2024-10-02 12:49] LABS: Alanine Aminotransferase < 5 U/L (0-41); Albumin Level 2.9 g/dL (3.5-5.2); Alkaline Phosphatase 69 U/L (40-130); Anion Gap 33.9 (5-19); Aspartate Amino Transferase 10 U/L (0-40); Blood Urea Nitrogen 51 mg/dL (8-23); C Reactive Protein 35.4 mg/L (0.0-4.9); Calcium 7.8 mg/dL (8.5-10.5); Carbon Dioxide 12 mmol/L (22-29); Chloride 85 mmol/L (98-107); Creatinine Clr Calc Pharmacy 40.4178; Globulin 1.8 g/dL (1.3-4.6); Potassium 4.9 mmol/L (3.5-5.1); Sodium 126 mmol/L (136-145); Total Bilirubin 0.7 mg/dL (0.15-1.2); Total Protein 4.7 g/dL (6.6-8.7)
--- NOTE | 2024-10-02 12:49 | PC.NURSE ---
CODE BLUE; CPR @1237 Pulse Check@[address] Hoskins @1239 by the request of patient's son Eldon.
[2024-10-02 12:58] LABS: Osmolality Calculated 315 mOsm/kg (285-295)
[2024-10-02 13:02] LABS: Hematocrit 15.7 % (37-53); Platelet Count 20 10^3/cmm (157-399); Slide Review Slide Review Perform; Troponin(5th) Baseline 256 ng/L (0-15); White Blood Count 72.03 10^3/uL (3.29-11.43)
[2024-10-02 13:03] LABS: Absolute Segmented Neutrophil 44.7 10/cmm (1.6-7.1); Band Neutrophils Absolute 7.2 10^3/cmm (0.0-1.2); Glucose 804 mg/dL (65-115); Lactic Sepsis W/Reflex 16.9 mmol/L (0.5-2.2); Segmented Neutrophils 62 %; Total Cells Counted 100 (0-100)
[2024-10-02 13:04] LABS: Absolute Neutrophil 51.9 10^3/cmm (1.4-6.5); Blastocytes 0 % (0-0); Eosinophils 0 %; Lymphocytes 7 %; Platelet Estimate Decreased (Normal)
== END 2024-10-02 12:39 | disposition expired ==
PROVIDERS: Emergency Provider Emergency Medicine; PCP Family Medicine
DX: A41.9 Sepsis, unspecified organism (principal); I46.9 Cardiac arrest, cause unspecified; F17.210 Nicotine dependence, cigarettes, uncomplicated; E11.9 Type 2 diabetes mellitus without complications; I25.10 Atherosclerotic heart disease of native coronary artery without angina pectoris; I50.9 Heart failure, unspecified
CPT/HCPCS: 36415; 36416; 36600; 71045; 80051; 80053; 82009; 82330; 82805; 82962; 83605; 84484; 85007; 85025; 86140; 87040; 93005; 96374; 99285; 99291; J1815; J7030